=== PATIENT | male | born 1990 | race Caucasian/White ===

== ENCOUNTER 2021-02-06 15:14 | Outpatient (REF) | payer BC, SELFPAY ==
--- NOTE | ~2021-02-06 | US_ITS ---
EXAMINATION: ULTRASOUND EXTREMITY NONVASCULAR CLINICAL INFORMATION: Enlarging painful mass right supraclavicular area COMPARISON: None TECHNIQUE: Grayscale and color imaging of the right supraclavicular region using a linear transducer FINDINGS: There are multiple clustered enlarged right supraclavicular lymph nodes. The largest measures 3 x 5.7 x 2.3 cm in dimension. Some lymph nodes demonstrate abnormal architecture with loss of slitlike fatty hilum, and abnormal cortical thickening and abnormal cortical flow. Infectious, inflammatory and neoplastic processes should be considered. This would be amenable to ultrasound-guided biopsy if clinically indicated. US/US extremity nonvascular baez IMPRESSION: Multiple enlarged right supraclavicular lymph nodes, some with abnormal architecture and flow. Infectious, inflammatory and neoplastic processes should be considered. This would be amenable to ultrasound-guided biopsy if clinically indicated.
== END 2021-02-06 15:15 | disposition home or self-care (01) ==
LOC: HO.US 15:14
PROVIDERS: Visit Provider Emergency Medicine
DX: R22.2 Localized swelling, mass and lump, trunk (principal)
CPT/HCPCS: 76882

== ENCOUNTER 2021-02-12 08:39 | Outpatient (REF) | payer BC, SELFPAY ==
--- NOTE | ~2021-02-12 | US_ITS ---
PROCEDURE: ULTRASOUND-GUIDED CORE BIOPSY OF RIGHT SUPRACLAVICULAR LYMPH NODE CLINICAL INFORMATION: Right supraclavicular lymphadenopathy. COMPARISON: 02/06/2021 TECHNIQUE: Ultrasound-guided core biopsy right supraclavicular lymph node. FINDINGS: Informed consent was obtained from the patient prior to the procedure. During this process, the procedure and potential alternatives were explained, along with the intended outcome and benefits. The risks of the procedure, as well as the risk of not doing the procedure, were discussed. The patient was given the opportunity to ask questions regarding the procedure and appeared competent to make medical decisions. A signed consent form which documents this discussion was placed in the medical record. Using sterile technique and ultrasound guidance four 18-gauge core biopsies were obtained of an enlarged abnormal-appearing right supraclavicular lymph node. Two cores were sent for routine pathology with two other cores being sent for flow cytometry. Patient tolerated procedure without difficulty. US/US guide needle placement IMPRESSION: Successful ultrasound-guided core biopsy right supraclavicular lymphadenopathy.
--- NOTE | ~2021-02-12 | US_ITS ---
PROCEDURE: ULTRASOUND-GUIDED CORE BIOPSY OF RIGHT SUPRACLAVICULAR LYMPH NODE CLINICAL INFORMATION: Right supraclavicular lymphadenopathy. COMPARISON: 02/06/2021 TECHNIQUE: Ultrasound-guided core biopsy right supraclavicular lymph node. FINDINGS: Informed consent was obtained from the patient prior to the procedure. During this process, the procedure and potential alternatives were explained, along with the intended outcome and benefits. The risks of the procedure, as well as the risk of not doing the procedure, were discussed. The patient was given the opportunity to ask questions regarding the procedure and appeared competent to make medical decisions. A signed consent form which documents this discussion was placed in the medical record. Using sterile technique and ultrasound guidance four 18-gauge core biopsies were obtained of an enlarged abnormal-appearing right supraclavicular lymph node. Two cores were sent for routine pathology with two other cores being sent for flow cytometry. Patient tolerated procedure without difficulty. US/US biopsy lymph node IMPRESSION: Successful ultrasound-guided core biopsy right supraclavicular lymphadenopathy.
[2021-02-12] MEDS: Lidocaine HCl 1 % 20 ML VIAL 5 ML SUBCUT (11:14)
== END 2021-02-12 08:40 | disposition home or self-care (01) ==
LOC: HO.US 08:39
PROVIDERS: Radiology Diagnostic Radiology; Visit Provider Registered Nurse Community Health
DX: R22.2 Localized swelling, mass and lump, trunk (principal)
CPT/HCPCS: 36415; 38505; 76942; 88184; 88185; 88305

== ENCOUNTER → 2021-02-16 15:39 | Outpatient (BNV) | payer BC, OTHER, SELFPAY | PROVIDERS: Visit Provider Internal Medicine | DX: C81.90 Hodgkin lymphoma, unspecified, unspecified site (principal); R59.0 Localized enlarged lymph nodes | CPT/HCPCS: 99203; 99213; 99214 ==

== ENCOUNTER → 2021-02-18 14:18 | Outpatient (BNVA) | payer BC, SELFPAY | PROVIDERS: Visit Provider Surgery ==

== ENCOUNTER 2021-02-20 10:13 | Day surgery (SDC) | payer BC, SELFPAY ==
[2021-02-20] VITALS (8 sets, daily range): BP systolic 97–118; BP diastolic 62–76; PULSE 52–62; RESP 16–18; TEMP 36.6–36.7; O2SAT 97–99; BMI 30.2
[2021-02-20] MEDS: Lactated Ringers 1,000 ML 100 ML IVCONT (11:10)
--- NOTE | 2021-02-20 11:48 | HO.ANESPROP2 ---
[facility] Active Problems Active Problems: All Active Problems (Updated 02/17/21 @ 09:24 by Alexandria Wallis MD) Supraclavicular adenopathy (Acute) Past Medical History Medical History Hx of fracture of clavicle Family History Family History Father Heart disease HTN (hypertension) Paternal Aunt Heart disease HTN (hypertension) Maternal Grandfather Diabetes Paternal Uncle Diabetes Family/Other Asthma Family history of problems with anesthesia: No Surgical History Surgical History History of undescended testicle History of Problems with Anesthesia: No Social History Social History Household Members: Significant Other Alcohol intake: current Alcohol intake frequency: a few times a month Patient Tobacco Use Status: Current everyday Tobacco user Tobacco use type: Cigar Use of substances other than those prescribed or required for medical reasons: Yes Substance Use Type: Marijuana Are you DNR?: No Advance Directives: No Advance Directives Information Provided: Yes Meds Allergies Allergy/AdvReac Type Severity Reaction Status Date / Time No Known Allergies Allergy Verified 02/20/21 10:44 Active Medications: Current Medications Lactated Ringer's (Lr) 1,000 mls @ 100 mls/hr IVCONT .Q10H CAIRDAD Last Admin: 02/20/21 11:10 Dose: 100 mls/hr Documented by: Home Medications Medication Instructions Recorded Confirmed Last Taken Type No Known Home Meds 02/16/21 02/18/21 Unknown History Exam Exam Date and Time: February 20, 2021 1148 Height,Weight and Vital Signs: Height 5 ft 9 in Weight 92.986 kg Last Vital Signs Temp 98.0 F 02/20/21 10:56 Pulse 62 02/20/21 10:56 Resp 18 02/20/21 10:56 BP 97/62 02/20/21 10:56 Pulse Ox 97 02/20/21 10:56 Airway Mallampati Class: II TM Dist: >3cm Neck ROM: Full Heart: rrr Lungs: cta Assessment and Plan Assessment Anesthesia Assessment: Anesthesia Plan Discussed and Chart Reviewed Final Anesthetic Review Family History of Problems with Anesthesia: No History of Problems with Anesthesia: No NPO: Yes ASA Class: I Final Preanesthetic Review: No Changes in Pt Med Stat, Meds/Allgs Chart Reviewed and Consent Obtained/Reviewed Patient Risk: Intermediate Procedure Risk: Intermediate Anesthetic Plan Anesthetic Plan: GA Disposition: Standard PACU
--- NOTE | 2021-02-20 14:34 | P.OP_ITS ---
Operative Note Operative Note Date of Service: 02/20/21 Narrative: Preoperative diagnosis: Right supraclavicular lymphadenopathy Postoperative diagnosis: Same Procedure: Right supraclavicular lymph node excision Surgeon: Ever Maynard MD Director Of Strategic Partnerships: Ashely Hall PA-C Anesthesia: General LMA Indications for procedure: 30-year-old male patient presenting with and a large right supraclavicular lymph node confirmed on neck ultrasound, status post core biopsy with inconclusive results. Findings were suspicious for Hodgkin's disease. Patient presents now for a right supraclavicular lymph node excision. Operative findings: Large right supraclavicular lymph node measuring approximately 5 cm in length, 2 cm in width. Specimen: Right supraclavicular lymph node Estimated blood loss: 20 cc Complications: None Procedure details: Patient was brought to the OR placed in a supine position. After administering general anesthesia the patient's right neck was prepped with ChloraPrep and draped in a sterile fashion. A surgical time-out was called the consent confirmed. Patient received preoperative antibiotics and Venodyne boots were in place. Local anesthesia consisting of 0.5% Sensorcaine plain was infiltrated in a transverse fashion over the palpable lymph node. Incision was then made with scalpel carried out through subcutaneous tissue past status post muscle and up to the sternocleidomastoid muscle. The lateral edge of sternocleidomastoid mu scle was then incised and the supraclavicular space entered. A palpable node was identified. Using a combination of sharp and blunt dissection a large supraclavicular node was brought up through the incision. Hemostasis was assured using electrocautery and free ties of 4-0 silk ties. The specimen was removed and sent to pathology for further examination. Portion of the specimen was sent for flow cytometry. After assuring adequate hemostasis the wounds were irrigated with both saline solution and sterile water. Deep fascia was closed using interrupted 3-0 Polysorb sutures. Platysmas muscle and dermis were reapproximated using interrupted 3-0 Polysorb sutures. Skin was then closed using a running subcuticular 4-0 Polysorb suture. Steri-Strips 2 x 2 gauze and Tegaderm were then applied. The patient tolerated the procedure well. Sponge, instrument, and needle counts reported as correct. The patient was transferred to PACU in stable condition.
[2021-02-20] MEDS: oxyCODONE HCl Immed Release 5 MG TABLET PO (15:10)
== END 2021-02-20 16:10 | disposition home or self-care (01) ==
PROVIDERS: PCP Internal Medicine; Visit Provider Surgery
PROC: (CPT 38999; principal; 2021-02-20 12:50)
DX: R59.0 Localized enlarged lymph nodes (principal)
CPT/HCPCS: 38999; 36415; 88184; 88185; 88300; 88305; 88341; 88342; 88365; J0690; J1100; J1885; J2250; J2405; J3010

== ENCOUNTER 2021-03-10 06:30 | Outpatient (REF) | payer BC, MEDICAID, SELFPAY ==
--- NOTE | ~2021-03-10 | CT_ITS ---
EXAMINATION: CT CHEST, ABDOMEN AND PELVIS WITH IV CONTRAST CLINICAL INFORMATION: Staging COMPARISON: None TECHNIQUE: Axial images through the chest, abdomen and pelvis following oral and 100 mL Omnipaque 350 intravenous contrast. Sagittal and coronal reconstructions on the technologist's workstation were performed. This CT examination was performed using dose optimization techniques as appropriate, variously including the following: *Automated exposure control *Adjustment of mA and/or kV according to patient size (this includes techniques or standardized protocols for targeted exams where dose is matched to indication/reason for exam; i.e. extremities or head) *Use of iterative reconstruction technique DLP: 502+92 mGy-cm FINDINGS: Chest: The lungs are clear. There is extensive mediastinal lymphadenopathy. Largest lymph node measuring 1.6 cm in short axis anterior to the SVC (axial image 22 series 3), 1.8 cm in short axis in the AP window region (axial image 2225 series 3). No hilar adenopathy is seen. There is a small right anterior diaphragmatic or cardiophrenic angle lymph node measures 4 mm in short axis (axial image 48 series 3). The heart does not appear enlarged. There is no pericardial effusion. There is no pleural effusion or pleural thickening. There are small bilateral axillary lymph nodes. There are no enlarged axillary lymph nodes. There is a lipoma of the left lateral latissimus dorsi muscle. There are enlarged bilateral reticular lymph nodes, right greater than left. There are enlarged bilateral internal mammary lymph nodes, largest measuring 8 mm in short axis (axial image 22 series 3) on the right. Abdomen and Pelvis: The liver and gallbladder are unremarkable. Pancreas is unremarkable. Spleen is unremarkable. The adrenal glands and kidneys are unremarkable. Bladder is not optimally distended. The prostate gland does not appear enlarged. Small and large bowel is unremarkable. The stomach is unremarkable. No ascites or enlarged lymph nodes are seen. There are small left external iliac lymph nodes, largest measuring 6 mm in short axis. There is no ascites. No hernia is seen. Review at bone windows is unremarkable. CT/CT abdomen pelvis w con IMPRESSION: Chest: Enlarged mediastinal, internal mammary, and bilateral supraclavicular lymph nodes. Abdomen and Pelvis: Unremarkable exam.
--- NOTE | ~2021-03-10 | CT_ITS ---
EXAMINATION: CT SOFT TISSUE NECK WITH CONTRAST CLINICAL INFORMATION: Hodgkin's lymphoma staging. COMPARISON: None TECHNIQUE: Following the administration of 100 mL of Omnipaque 300 intravenous contrast, helical imaging was performed in the axial plane with generation of coronal and sagittal reformatted images. This CT examination was performed using dose optimization techniques as appropriate, variously including the following: *Automated exposure control *Adjustment of mA and/or kV according to patient size (this includes techniques or standardized protocols for targeted exams where dose is matched to indication/reason for exam; i.e. extremities or head) *Use of iterative reconstruction technique DLP: 1691 mGy-cm FINDINGS: Numerous enlarged conglomerate lymph nodes are seen within the lower cervical chains on the right more than left side at level 4 and 5B with confluent adenopathy present within the visualized mediastinum. No enlarged lymph nodes seen along the upper cervical chains. The pharyngeal and laryngeal contours are unremarkable. The bilateral parotid and submandibular glands appear normal. The thyroid gland appears normal. The imaged intracranial contents are unremarkable. There is paranasal sinus mucosal thickening. The mastoids are clear. The major neck vessels are patent. Please see concurrently performed chest CT for discussion of intrathoracic findings. Cervical spine is intact without destructive change or degeneration. CT/CT soft tissue neck w con IMPRESSION: Bulky conglomerate adenopathy seen within the right more than left lower cervical chains at level 4 and 5B as well as within the imaged mediastinum. No extranodal neck mass is seen.
[2021-03-10] MEDS: Barium Sulfate Oral (Berry) 450 ML ORAL.SUSP 900 ML PO (08:58)
[2021-03-10] MEDS: iohexoL 350 MG/ML 100 ML INFUS..BTL IV (08:59)
== END 2021-03-10 06:31 | disposition home or self-care (01) ==
LOC: HO.CT 06:30
PROVIDERS: Visit Provider Internal Medicine
DX: R59.1 Generalized enlarged lymph nodes (principal)
CPT/HCPCS: 70491; 71260; 74177; Q9967

== ENCOUNTER → 2021-03-11 09:38 | Outpatient (REF) | payer BC, SELFPAY ==
[2021-03-10 16:24] VITALS: BMI 30.5
--- NOTE | 2021-03-11 09:41 | CA_ITS ---
Transthoracic Echocardiogram Patient (Last, First, Middle): Ridge Villalobos, Gender: Male Date of : 1990 Age: 30 Procedure Date: 03/11/2021 Procedure Type: Transthoracic Echocardiogram Location: OP Height: 175.26 cm Weight: 95.26 kg BSA: 2.11 m2 Heart Rate: bpm BP: 124 / 68 mmHg Rfid Specialist: Referring MD: Alexandria Wallis MD Symptoms: C81.90 HODGKIN LYMPHOMA, pre chemo evaluation Study Quality: Good ECG Rhythm: Sinus Conclusions: - The left ventricular systolic function is normal. The visually estimated ejection fraction is between 55-60%. - There is mild tricuspid valve regurgitation. Findings Left Ventricle Normal left ventricular cavity size. There is normal left ventricular wall thickness. The left ventricular systolic function is normal. The visually estimated ejection fraction is between 55-60%. There is no evidence of regional wall motion abnormalities. Diastolic function is normal for age. LV peak GLS -19.4%. Right Ventricle Normal right ventricular cavity size and systolic function. Atria Both atria are normal in size. Aortic Valve There is a normal trileaflet aortic valve. There is no aortic valve stenosis. There is no aortic valve regurgitation. Mitral Valve The mitral valve appears normal. There is trace mitral valve regurgitation. There is no mitral valve stenosis. Pulmonic Valve The pulmonic valve was not well visualized. Tricuspid Valve Normal tricuspid valve structure. There is mild tricuspid valve regurgitation. The pulmonary artery systolic pressure is normal. Great Vessels The aortic annulus, sinuses of valsalva, asc aorta, and aortic arch are normal in size. Venous The inferior vena cava is normal in size and collapses greater than 50% with inspiration. Pericardium/Pleural There is no evidence of pericardial effusion. Prior Study Comparison No prior study available for comparison. Measurements 2D Linear Measurements IVSd: 1.00 0.6-0.9/0.6-1.0 cm LVIDd: 4.86 3.9-5.3/4.2-5.9 cm LVIDd Index: 2.30 2.4-3.2/2.2-3.1 cm/m2 LVIDs: 2.87 2.0-3.6 cm LVPWd: 0.95 0.7-1.1 cm Ao Root: 3.50 2.1-3.5 cm LA Diam: 3.70 2.7-3.8/3.0-4.0 cm LAIDs Index: 1.75 1.5-2.3 cm/m2 LV Mass: 208.64 67-162/88-224 g LV Mass Index: 98.88 43-95/49-115 g/m2 LVOT Diam: 2.50 3.0+(-)1.3 cm 2D Systolic Function EF 4C: 53.40 >55% EF 2C: 51.90 >55% EF BiP: 52.70 >55% Mitral Valve MV Pk E: 0.68 MV PK A: 0.49 MV Decel Time: 222.00 E/A: 1.40 E'Lateral: 17.40 E'Medial: 11.70 E/E' Med: 5.80 E/E' Lat: 3.90 PHT: 65.00 MVA PHT: 3.38 Decel [place]: 3.07 Aortic Valve AoV Pk Jorge: 1.38 AoV Mn Jorge: 0.94 AoV VTI: 0.31 AoV Pk Grad: 8.00 Aov Mn Grad: 4.00 ALEXANDER Cont.VTI: 3.36 LVOT LVOT Pk Jorge: 1.02 LVOT Mn Jorge: 0.64 LVOT VTI: 0.21 LVOT Pk Grad: 4.00 LVOT Mn Grad: 2.00 LVOT Diam: 2.50 LVOT Area: 4.91 Diastolic Function MV Pk E: 0.68 MV Pk A: 0.49 E/A: 1.40 E'Medial: 11.70 E/E' Med: 5.80 E' Laterial: 17.40 E/E' Lat: 3.90 Right Ventricle TAPSE (mm): 25.00 TVS' Jorge: 13.00 Great Vessels Aorta Ao Root-2D: 3.50 2.0-3.7 cm Ao Asc: 3.20 2.1-3.4 cm Pulmonary Valve PV Pk Jorge: 0.97 Peak PV Grad: 4.00 Updated in Other Vendor System with Status of Final Merrill Regalado MD electronically signed on 03/12/2021 10:49:40 AM with status of Final
== END ==
LOC: HO.CARD 09:38
PROVIDERS: Visit Provider Internal Medicine
DX: C81.90 Hodgkin lymphoma, unspecified, unspecified site (principal)
CPT/HCPCS: 93306; 93356

== ENCOUNTER 2021-03-12 15:27 | Outpatient (REF) | payer BC, SELFPAY ==
--- NOTE | 2021-03-12 | PFT_ITS ---
Forced vital capacity, FEV1, XDU47-57, and MVV are all normal. Post bronchodilator therapy, there is no change. Total lung capacity and residual volume normal. Diffusion capacity normal. CONCLUSION: Normal pulmonary function test. No evidence of obstructive or restrictive pulmonary disorder. MD KARLY Diamond/MODL / [id number]
== END 2021-03-12 15:28 | disposition home or self-care (01) ==
LOC: HO.RESP 15:27
PROVIDERS: Visit Provider Internal Medicine
DX: Z01.818 Encounter for other preprocedural examination (principal)
CPT/HCPCS: 94060; 94727; 94729

== ENCOUNTER 2021-03-17 08:25 | Outpatient (REF) | payer BC, SELFPAY ==
--- NOTE | ~2021-03-17 | PE_ITS ---
EXAMINATION: Fluorine-18 FDG PET/CT Scan CLINICAL INDICATION: Initial treatment management. Hodgkin's lymphoma, staging. PROCEDURE: 53 minutes following the intravenous administration of 13.8 mCi of fluorine 18 FDG, images from the base of the skull to the mid thighs were obtained using a combined PET/CT scanner with CT scan based attenuation correction. No oral contrast was administered. No intravenous contrast was administered. Transverse, coronal, sagittal, and volume reconstruction projections were obtained. The patient's blood glucose as determined by a finger stick, was 103 mg/dl immediately prior to injection. Total CT exam dose-length product 1114.93 mGy-cm * These CT images were obtained using dose optimization techniques as appropriate, variously including the following: Automated exposure control * Adjustment of mA and/or kV according to patient size (this includes techniques or standardized protocols for targeted exams where dose is matched to indication/reason for exam; i.e. extremities or head) * Use of iterative reconstruction technique COMPARISON: No previous PET/CT scan is available for comparison. CT scans of the chest, abdomen, pelvis and neck soft tissues dated 03/10/2021 are available for comparison. FINDINGS: (Slice numbers described in this report are numbered superiorly to inferiorly with slice #1 in the head) NECK AND VISUALIZED HEAD: Extensive confluent right-sided intensely FDG avid supraclavicular lymphadenopathy is present, and SUVmax 13.8, slice 61/311. Multiple smaller and less intensely FDG avid left supraclavicular lymph nodes are also present. There is mild diffusely increased FDG activity in the thyroid gland without a focal component. No additional abnormal FDG activity is present in the neck or visualized head. There is no additional more superior cervical lymphadenopathy. THORAX: Bulky intensely FDG avid mediastinal lymphadenopathy is present including bilateral prevascular, paratracheal, and AP window lymphadenopathy. The most intense mediastinal focus is a right prevascular focus showing S SUVmax 11.1, slice 92/311. There is also small right internal mammary FDG avid focus, slice 105/407. Small mildly FDG avid left axillary lymph node is visualized, slice 91/311. No right-sided axillary lymphadenopathy is present. Two 0.6 cm pulmonary nodules are visualized posteriorly at the left lung base, both slice 164/407 and unchanged from 03/10/[address] scan in both too small to be characterized on the FDG PET images. No other pulmonary nodules are visualized. There is no pleural or pericardial fluid or pneumothorax. ABDOMEN AND PELVIS: Several FDG avid left external iliac and left inguinal lymph nodes are present, the most prominent a distal left external iliac lymph node showing S SUVmax 11.7, slice 236/311 an measuring approximately 1.9 x 1.3 cm in largest transverse dimensions. There is mild FDG activity throughout the gastrointestinal tract without a suspicious focal component. There is diverticulosis without evidence of diverticulitis. The hollow viscera are otherwise unremarkable. Other than osseous lesion subsequently discussed, there are no additional foci of abnormal FDG activity in the abdomen or pelvis. The liver, spleen, gallbladder, kidneys, adrenal glands and pancreas appear unremarkable. MUSCULOSKELETAL: Multiple FDG avid osseous lesions are present. The most prominent of these include a focus in the left greater femoral trochanter showing S SUVmax 5.9, slice 254/311 and in the posterior right iliac bone showing S SUVmax 7.5, slice 208/311. Additional pelvic lesions are present in the posterior left iliac bone, midline upper sacrum, posterior column of the left acetabulum and mild bilateral inferior ischial lesions. In the spine there is an FDG avid focus in the inferior endplate of L2 an equivocal subtle lesion is probably also present in the T7 vertebral body. A small FDG avid lymph node is present posterior to the proximal shaft of the left femur, slice 271/311. VASCULAR: No significant abnormalities are present. PET/PET CT fusion skull to thigh IMPRESSION: 1. Extensive FDG avid lymphadenopathy is present involving the bilateral supraclavicular regions, mediastinum, left axilla, and left external iliac and inguinal regions. 2. Additional FDG avid osseous lesions are present in the left femur, pelvis and spine, as described above. Additional subtle pelvic and proximal right femoral lesions are also present. 3. All the above are consistent with malignant lymphadenopathy and osseous lesions from the patient's known Hodgkin's lymphoma.
== END 2021-03-17 08:26 | disposition home or self-care (01) ==
LOC: HO.PET 08:25
PROVIDERS: Visit Provider Internal Medicine
DX: Z13.89 Encounter for screening for other disorder (principal)

== ENCOUNTER → 2021-03-19 07:07 | Day surgery (SDC) | payer BC, SELFPAY ==
[2021-03-19 07:18] VITALS: BMI 31.0
[2021-03-19 07:30] LABS: Basophils Percent Auto 0.2 % (0-2); Eosinophils Absolute Auto 0.2 X10*3/uL (0.0-0.4); Hematocrit 38.2 % (42.0-52.0); Imm Gran Abs Auto 0.11 X10*3/uL (0.00-0.03); Imm Gran Pct Auto 0.6 % (0.0-0.4); Lymphocytes Absolute Auto 2.1 X10*3/uL (1.2-4.9); MANUAL DIFF FLAG NO; Mean Corpuscular Hemoglobin 29.6 pg (27.0-33.0); Mean Platelet Volume 10.8 fL (9.4-12.4); Monocytes Absolute Auto 1.4 X10*3/uL (0.1-1.2); Monocytes Percent Auto 7.6 % (2-11); Neutrophils Absolute Auto 13.9 x10*3/uL (2.0-8.3); Neutrophils Percent Auto 78.6 % (45-73); Platelet Count 285 X10*3/uL (160-400); Red Blood Count 4.39 X10*6/uL (4.60-5.80); Red Cell Distribution Width 11.6 % (11.0-16.0); White Blood Count 17.7 X10*3/uL (4.8-10.8)
[2021-03-19 07:38] LABS: INTERNATIONAL NORM RATIO 1.4 (0.9-1.1); Prothrombin Time 15.6 SEC (9.9-13.0)
[2021-03-19 07:41] LABS: Partial Thromboplastin Time 36.9 SEC (24.1-38.0)
--- NOTE | 2021-03-19 09:33 | PC.NURSE ---
the procedure was cancelled due to wbc too low. patient arrived here from IR got dressed and once ride here walked to main entrance.
== END ==
PROVIDERS: Radiology Diagnostic Radiology; Visit Provider Internal Medicine
DX: R59.0 Localized enlarged lymph nodes (principal); Z53.09 Procedure and treatment not carried out because of other contraindication; D72.829 Elevated white blood cell count, unspecified
CPT/HCPCS: 36415; 85025; 85610; 85730; J0690; J1642; J2250; J3010

== ENCOUNTER 2021-03-27 09:06 | Day surgery (SDC) | payer BC, MEDICAID, SELFPAY ==
--- NOTE | ~2021-03-27 | IR_ITS ---
PROCEDURE: IR INSERTION OF TUNNEL CATHETER CLINICAL INFORMATION: Hodgkin's lymphoma. Needs long-term IV chemotherapy. COMPARISON: None TECHNIQUE: Following explaining ultrasound fluoroscopy-guided placement of Port-A-Cath procedure, benefits and risks, a written consent was obtained. Patient was placed supine on fluoroscopy table and ultrasound imaging of the left and right neck was performed. Patient had a recent right neck biopsy scar and is painful. Hence the left neck was scanned, an optimal site was selected along the left neck and marked. Marked site was cleaned and draped in the usual sterile manner. 1% lidocaine was injected at puncture site. Under sterile ultrasound guidance a single wall needle was advanced and right jugular vein was punctured. After obtaining venous return, a thin guidewire was advanced through the needle and needle withdrawn. A 5-Chilean dilator sheath was advanced over the guidewire. The guidewire and the sheath were anchored to the drape with hemostats. Approximately 1 gauze length away from the left neck puncture along the left anterior chest wall, 1% lidocaine was injected. A small skin incision was performed approximately 4 cm long and blunt dissection was performed subcutaneously. A pocket was created. 1% lidocaine was injected from the anterior chest wall incision subcutaneously through the left neck incision area. A blunt tunneler attached to the Port-A-Cath and the port chamber was inserted through the left anterior chest wall incision and advanced subcutaneously and extracted through the left neck incision. The port was then anchored to the skin with two 3-0 nonabsorbable sutures. The port catheter was then sized 32 cm long. The guidewire and the dilator through the left neck incision removed and a 0.035 J-wire was advanced under fluoroscopy into the IVC and the 5-Chilean sheath was removed. 7-Chilean sheath with a 6.6-Chilean dilator were inserted over the wire. The dilator and the guidewire were removed and the sized portacatheter tip was inserted through the sheath into the SVC. The peel-away sheath was removed as the catheter was held in position. The portacatheter was flushed with heparinized saline. Absorbable 3-0 sutures were placed subcutaneously followed by a second set of sutures along the skin and the skin incision was closed. Similarly, the left neck incision was closed with 3-0 absorbable sutures. A Ryan needle was advanced into the port and standard heparin was installed. Subsequently, Steri-Strips were applied at the neck incision and the anterior chest wall incision followed by simple dressing. Patient tolerated procedure extremely well. All elements of maximal sterile barrier technique followed including use of cap, mask, sterile gown, sterile gloves, a sterile full body drape and hand hygiene. Also followed skin preparation with 2% chlorhexidine for cutaneous antisepsis, and sterile ultrasound preparation with sterile gel and probe cover when applicable. Conscious sedation was utilized during the exam and patient monitored. FINDINGS: On preliminary ultrasound imaging the left jugular vein is widely patent. There are numerous iltzlyvw-eb-[id number] lymph nodes in the left supraclavicular neck. Under ultrasound and fluoroscopy guidance, a 6.6-Chilean 32 cm long tunneled portacatheter was inserted from a left jugular venous approach. A single image obtained through the left anterior chest reveals catheter tip in the distal SVC. IR/IR cvc insert tunnel w prt/event crew technician IMPRESSION: Successful placement of a tunneled catheter through the left jugular vein with the tip of the catheter in distal SVC. A single image was obtained for documentation. Fluoroscopy time 0.7 minutes. Dose area product: 216 cGy-cm2
[2021-03-27 09:24] VITALS: BMI 30.1
[2021-03-27 09:25] VITALS: BP 109/78; PULSE 67; RESP 18; TEMP 36.1; O2SAT 99
[2021-03-27] MEDS: Lidocaine HCl 1 % MPF 5 ML VIAL SUBCUT (13:20)
[2021-03-27 13:39] VITALS: BP 116/71; PULSE 93; RESP 16; TEMP 36.9; O2SAT 97
[2021-03-27 14:15] VITALS: BP 111/75; PULSE 73; RESP 16; O2SAT 97
[2021-03-27 14:45] VITALS: BP 105/72; PULSE 78; RESP 16; O2SAT 97
[2021-03-27 15:17] VITALS: BP 123/66; PULSE 77; RESP 16; O2SAT 99
== END 2021-03-27 15:19 | disposition home or self-care (01) ==
LOC: HO.SSS 09:06
PROVIDERS: Visit Provider Radiology Diagnostic Radiology
DX: Z45.2 Encounter for adjustment and management of vascular access device (principal); C81.90 Hodgkin lymphoma, unspecified, unspecified site; F17.200 Nicotine dependence, unspecified, uncomplicated
CPT/HCPCS: 36561; 99152; 99153; C1769; C1788; J0690; J1642; J2250; J3010

== ENCOUNTER 2021-06-16 10:38 | Outpatient (REF) | payer BC, MEDICAID, SELFPAY ==
--- NOTE | ~2021-06-16 | PE_ITS ---
EXAMINATION: Fluorine-18 FDG PET/CT Scan CLINICAL INDICATION: Subsequent treatment management. Hodgkin's lymphoma, restaging. PROCEDURE: 57 minutes following the intravenous administration of 13.8 mCi of fluorine 18 FDG, images from the base of the skull to the mid thighs were obtained using a combined PET/CT scanner with CT scan based attenuation correction. No oral contrast was administered. No intravenous contrast was administered. Transverse, coronal, sagittal, and volume reconstruction projections were obtained. The patient's blood glucose as determined by a finger stick, was 95 mg/dl immediately prior to injection. Total CT exam dose-length product 719.78 mGy-cm * These CT images were obtained using dose optimization techniques as appropriate, variously including the following: Automated exposure control * Adjustment of mA and/or kV according to patient size (this includes techniques or standardized protocols for targeted exams where dose is matched to indication/reason for exam; i.e. extremities or head) * Use of iterative reconstruction technique COMPARISON: The previous PET CT scan dated 03/17/2021 is available for comparison. FINDINGS: (Slice numbers described in this report are numbered superiorly to inferiorly with slice #1 in the head) NECK AND VISUALIZED HEAD: Intensely FDG avid right greater than left supraclavicular lymphadenopathy present on the prior 03/17/2021 CT scan has completely resolved. Minimal soft tissue densities in this region are present, and all now appear subcentimeter in size. None of these show abnormal FDG activity. There is now no cervical lymphadenopathy or foci of abnormal FDG activity in the neck or visualized head. THORAX: Extensive FDG avid mediastinal lymphadenopathy has completely resolved since the prior 03/17/2021 study. Multiple subcentimeter mediastinal lymph nodes are now present at the site of previously enlarged intensely FDG avid lymphadenopathy present on 03/17/2021. There is no axillary lymphadenopathy. There are now no abnormal foci of FDG activity in the chest. No pulmonary nodules are visualized. There is no pleural or pericardial fluid, or pneumothorax. A left-sided chest port with internal jugular catheter terminating in the right atrium is noted and this is new since 03/17/2021. ABDOMEN AND PELVIS: No foci of abnormal FDG activity are present in the abdomen or pelvis. Intensely FDG avid pelvic and inguinal lymphadenopathy present on 03/17/2021 has resolved. There is now no retroperitoneal, mesenteric, pelvic or inguinal lymphadenopathy. The liver, spleen, gallbladder, kidneys, adrenal glands, and pancreas are unremarkable. MUSCULOSKELETAL: No foci of abnormal FDG activity are now present in the osseous structures. Previously present pelvic, spinal, and prominent proximal left femoral lesions on the 03/17/2021 study are no longer present. There is subtle sclerosis on the CT images at some of these sites, such as the proximal left femur, slice 243/267, the posterior right iliac bone, slice 199/267, in the posterior aspect of L2, best visualized on the sagittal reconstructions. None of these now show abnormal FDG activity. No suspicious lytic lesions are present. VASCULAR: No significant abnormalities are present. PET/PET CT fusion skull to thigh IMPRESSION: Complete resolution of extensive FDG avid lymphadenopathy and multiple FDG avid osseous lesions present on the prior 03/17/[address] scan. Using the 5 point Deauville scale, this patient would be classified as a Deauville score of 1.
== END 2021-06-16 10:39 | disposition home or self-care (01) ==
LOC: HO.PET 10:38
PROVIDERS: Visit Provider Internal Medicine
DX: Z13.89 Encounter for screening for other disorder (principal)

== ENCOUNTER 2021-09-29 12:16 | Outpatient (REF) | payer BC, MEDICAID, SELFPAY ==
--- NOTE | ~2021-09-29 | PE_ITS ---
EXAMINATION: PET/CT WHOLE BODY INDICATION: Posttreatment PET. COMPARISON: Previous PET scans dated 06/16/2021, 03/17/2021. TECHNIQUE: Dedicated coincidence imaging from the base of the skull to the thighs. 15.4 mCi F-18 deoxyglucose. FINDINGS: The base of the skull is felt to be within normal limits. The neck exam is limited due to misregistration. No suggestion of bulky adenopathy. In the thoracic inlet, uptake adjacent to the inferior pole of the thyroid gland and as we course lower into the mediastinum, increasing bulky adenopathy with increased uptake consistent with recurrent tumor. Uptake 10 SUVmax. Uptake crosses the midline into the left-side of the mediastinum and uptake is felt to extend down into the subcarinal region. Again there is associated increased soft tissue and tumor is suspected. The hilar regions are felt to be unremarkable. In the lungs, there is no suspicious uptake. In the upper abdomen, the liver uptake is within normal limits. The splenic uptake is within normal limits. There is normal low-level bowel activity. Normal renal and bladder activity. Review of the bones demonstrates diffuse uptake. This may be related to treatment. Importantly, there is no excess uptake in the region of previously documented bone lesions. PET/PET CT fusion skull to thigh IMPRESSION: I believe this exam shows recurrent disease. As described, there is uptake and increasing adenopathy in the right mediastinum which does cross the midline at the level the bernardo and also extends to the right subcarinal region. There is also a discrete focus in the upper right mediastinum just below the level of the thyroid gland. Diffuse bony uptake may be related to therapy. There is no evidence of excess uptake in the area of previously documented bone lesions. Attention to follow-up. Uptake is otherwise within normal limits.
== END 2021-09-29 12:17 | disposition home or self-care (01) ==
LOC: HO.PET 12:16
PROVIDERS: Visit Provider Internal Medicine
DX: Z13.89 Encounter for screening for other disorder (principal)

== ENCOUNTER 2021-10-07 11:47 | Day surgery (SDC) | payer BC, MEDICAID, SELFPAY ==
--- NOTE | 2021-10-06 09:00 | HO.ANESPROP2 ---
Documented by User: Vicky Jacob NP 10/06/21 09:04 HPI - Anesthesia Eval Consult details Narrative: 31yo M for Colonoscopy s/p chemo for hodgkins lymphoma s/p lymph node dissect 02/2021 with GA-LMA 4 PMFSH Active Problems Active Problems: All Active Problems (Updated 10/05/21 @ 13:04 by Jose Sanderson MD) Mediastinal lymphadenopathy (Acute) Hodgkin lymphoma (Acute) Supraclavicular adenopathy (Chronic) Past Medical History Medical History Hodgkin lymphoma Hx of fracture of clavicle Family History Family History Father Heart disease HTN (hypertension) Paternal Aunt Heart disease HTN (hypertension) Maternal Grandfather Diabetes Pancreatic cancer Paternal Uncle Diabetes Family/Other Asthma Family history of problems with anesthesia: No Surgical History Surgical History History of undescended testicle S/P lymph node biopsy History of Problems with Anesthesia: No Social History Social History Household Members: Significant Other Alcohol intake: current Alcohol intake frequency: a few times a month Patient Tobacco Use Status: Never used Tobacco Tobacco use type: Cigar Use of substances other than those prescribed or required for medical reasons: Yes Substance Use Type: Marijuana Are you DNR?: No Advance Directives: No Advance Directives Information Provided: Yes Recently lost weight without trying: No How much weight loss: 2-13 pounds Meds Allergies Allergy/AdvReac Type Severity Reaction Status Date / Time No Known Allergies Allergy Verified 10/05/21 11:45 Exam Exam Date and Time: October 06, 2021 0900 Pertinent Lab Results Pertinent Lab Results: Laboratory Tests 08/28/21 08/28/21 09:18 09:18 WBC 6.4 Hgb 12.6 L Hct 37.7 L Plt Count 400 D Sodium 138 Potassium 4.4 Chloride 104 Carbon Dioxide 28 BUN 9 Creatinine 0.82 Narrative Narrative: ECHO 03/2021 Conclusions: - The left ventricular systolic function is normal.? The visually estimated ejection fraction is between 55-60%. ? - There is mild tricuspid valve regurgitation. ? Assessment and Plan Assessment Anesthesia Assessment: Chart Reviewed Final Anesthetic Review Family History of Problems with Anesthesia: No History of Problems with Anesthesia: No Documented by User: Erinn Marcial MD 10/07/21 13:30 [facility] Active Problems Active Problems: All Active Problems (Updated 10/05/21 @ 13:04 by Jose Sanderson MD) Mediastinal lymphadenopathy (Acute). For EBUS Hodgkin lymphoma (Acute) s/p 6 cycles of chemotherapy. Finished August 2021 Supraclavicular adenopathy (Chronic) Past Medical History Medical History Hodgkin lymphoma Hx of fracture of clavicle Family History Family History Father Heart disease HTN (hypertension) Paternal Aunt Heart disease HTN (hypertension) Maternal Grandfather Diabetes Pancreatic cancer Paternal Uncle Diabetes Family/Other Asthma Surgical History Surgical History History of undescended testicle S/P lymph node biopsy Social History Social History Household Members: Significant Other Alcohol intake: current Alcohol intake frequency: a few times a month Patient Tobacco Use Status: Never used Tobacco Tobacco use type: Cigar Use of substances other than those prescribed or required for medical reasons: Yes Substance Use Type: Marijuana Are you DNR?: No Advance Directives: No Advance Directives Information Provided: Yes Recently lost weight without trying: No How much weight loss: 2-13 pounds Meds Allergies Allergy/AdvReac Type Severity Reaction Status Date / Time No Known Allergies Allergy Verified 10/05/21 11:45 Exam Height,Weight and Vital Signs: Height 5 ft 9 in Weight 94.801 kg Vital Signs Temp Pulse Resp BP Pulse Ox O2 Del Method 10/07/21 12:11 97.9 F 83 16 114/77 95 Room Air Airway Mallampati Class: II TM Dist: >3cm Neck ROM: Full Loose/Missing/Broken Teeth: No (Per patient) Heart: RRR Lungs: CTAB Assessment and Plan Assessment Anesthesia Assessment: Anesthesia Plan Discussed Final Anesthetic Review NPO: Yes ASA Class: II Final Preanesthetic Review: No Changes in Pt Med Stat, Meds/Allgs Chart Reviewed, Consent Obtained/Reviewed and Anes Risks/Benef Reviewed Patient Risk: Low Procedure Risk: Low Anesthetic Plan Anesthetic Plan: GA Disposition: Standard PACU
[2021-10-07] VITALS (7 sets, daily range): BP systolic 114–127; BP diastolic 71–82; PULSE 83–99; RESP 16–18; TEMP 36.5–36.6; O2SAT 95–99; BMI 30.8
[2021-10-07] MEDS: Lactated Ringers 1,000 ML 100 ML IVCONT (12:29)
--- NOTE | 2021-10-07 12:31 | MHC.SHP ---
Pre-Procedural Eval Section A Date of Service: 10/07/21 The patient is an INPATIENT: No Changes since office visit: Yes Patient answered all questions; No Cold of Flu in the past 2 weeks, No New Medical Problems and No Changes in Medication The History & Physical has been completed within 30 days and I have reviewed it.: Yes Section B Chief Complaint: large b cells Allergies: Allergies Allergy/AdvReac Type Severity Reaction Status Date / Time No Known Allergies Allergy Verified 10/05/21 11:45 Review of Systems Sugical H&P ROS: Negative: Constitution, Cardiovascular, Respiratory, Neurological, Psychiatric, Hem-Onc, Allergic/Immunologic, Gastrointestinal, Genitourinary, Musculoskeletal, Integumentary, Endocrine and Eyes/Ears/Nose/Throat Exam Surgical H&P Exam: Normal: HEENT, Normal: Heart, Normal: Lungs, Normal: Extremities, Normal: Abdomen, Normal: Skin and Normal: Neurological Plan Diagnosis/Plan: Unchanged I have reviewed the history and physical and performed a pertinent physical examination on my patient. No changes have occurred unless specified.
--- NOTE | 2021-10-07 15:53 | PM.OP ---
Brief Operative Note Date of Service: 10/07/21 Pre-op diagnosis: Lymphoma Post-op diagnosis: same Procedure: Endobronchial ultrasound guided biopsy of mediastinal nodes performed with bronchoscope advanced through the ET tube (patient intubated for the procedure) through the tracheobronchial tree with visualized normal bronchial mucosa. Lymph nodes at station 4R and station 7 were biopsied under endobronchial ultrasound guidance with aspirate from both stations demonstrating lymphoid tissue on bedside microscopy. Samples sent for further testing. Patient tolerated the procedure well and was returned to PACU in stable condition. Surgeon: Jose Sanderson MD Anesthesia: GETA Was an Structural Design Engineer used for this Procedure?: No Estimated blood loss (mL): 0 Pathology: other (Sent) Condition: stable Disposition: PACU
== END 2021-10-07 16:10 | disposition home or self-care (01) ==
PROVIDERS: Visit Provider Internal Medicine Pulmonary Disease
PROC: (CPT 31652; principal; 2021-10-07 13:30)
DX: C85.28 Mediastinal (thymic) large B-cell lymphoma, lymph nodes of multiple sites (principal); R59.0 Localized enlarged lymph nodes; Z87.891 Personal history of nicotine dependence
CPT/HCPCS: 31652; 36415; 88172; 88173; 88177; 88184; 88185; 88305; J0171; J1100; J2250; J2405; J3010

== ENCOUNTER → 2021-10-23 10:01 | Outpatient (BNVA) | payer OTHER, MEDICAID, SELFPAY | PROVIDERS: Visit Provider Surgery | DX: C81.90 Hodgkin lymphoma, unspecified, unspecified site (principal); R59.0 Localized enlarged lymph nodes | CPT/HCPCS: 99202 ==

== ENCOUNTER 2021-10-28 05:56 | Day surgery (SDC) | payer OTHER, MEDICAID, SELFPAY ==
--- NOTE | 2021-10-27 09:56 | P.CONAN_ITS ---
Documented by User: Vicky Jacob NP 10/27/21 09:57 HPI - Anesthesia Eval Consult details Narrative: 31yo M for Bronchoscopy Mediastinoscopy s/p EBUS 10/08/21 with GA-ETT 8 PMFSH Active Problems Active Problems: All Active Problems (Updated 10/23/21 @ 11:42 by Ramón Noble MD) Hodgkin lymphoma (Acute) Mediastinal lymphadenopathy (Acute) Supraclavicular adenopathy (Chronic) Past Medical History Medical History Hodgkin lymphoma Hx of fracture of clavicle Family History Family History Father Heart disease HTN (hypertension) Paternal Aunt Heart disease HTN (hypertension) Maternal Grandfather Diabetes Pancreatic cancer Paternal Uncle Diabetes Family/Other Asthma Family history of problems with anesthesia: No Surgical History Surgical History History of bronchoscopy History of undescended testicle S/P lymph node biopsy History of Problems with Anesthesia: No Social History Social History Household Members: Significant Other Alcohol intake: current Alcohol intake frequency: a few times a month Patient Tobacco Use Status: Never used Tobacco Tobacco use type: Smokeless Tobacco Use of substances other than those prescribed or required for medical reasons: Yes Substance Use Type: Marijuana Substance Use Frequency: Weekly Are you DNR?: No Advance Directives: No Advance Directives Information Provided: Yes Meds Allergies Allergy/AdvReac Type Severity Reaction Status Date / Time No Known Allergies Allergy Verified 10/23/21 10:16 Exam Exam Date and Time: October 27, 2021 0956 Height,Weight and Vital Signs: Height 5 ft 9 in Weight 94.801 kg Vital Signs Temp Pulse Resp BP Pulse Ox O2 Del Method 10/07/21 12:11 97.9 F 83 16 114/77 95 Room Air Pertinent Lab Results Pertinent Lab Results: Laboratory Tests 08/28/21 08/28/21 09:18 09:18 WBC 6.4 Hgb 12.6 L Hct 37.7 L Plt Count 400 D Sodium 138 Potassium 4.4 Chloride 104 Carbon Dioxide 28 BUN 9 Creatinine 0.82 Narrative Narrative: ECHO 03/2021 Conclusions: - The left ventricular systolic function is normal.? The visually estimated ejection fraction is between 55-60%. ? - There is mild tricuspid valve regurgitation. ? Assessment and Plan Assessment Anesthesia Assessment: Chart Reviewed Final Anesthetic Review Family History of Problems with Anesthesia: No History of Problems with Anesthesia: No Documented by User: Blair Rob MD 10/28/21 07:30 [facility] Past Medical History Medical History Hodgkin lymphoma Hx of fracture of clavicle Family History Family History Father Heart disease HTN (hypertension) Paternal Aunt Heart disease HTN (hypertension) Maternal Grandfather Diabetes Pancreatic cancer Paternal Uncle Diabetes Family/Other Asthma Surgical History Surgical History History of bronchoscopy History of undescended testicle S/P lymph node biopsy Social History Social History Household Members: Significant Other Alcohol intake: current Alcohol intake frequency: a few times a month Patient Tobacco Use Status: Never used Tobacco Tobacco use type: Smokeless Tobacco Use of substances other than those prescribed or required for medical reasons: Yes Substance Use Type: Marijuana Substance Use Frequency: Weekly Are you DNR?: No Advance Directives: No Advance Directives Information Provided: Yes Meds Allergies Allergy/AdvReac Type Severity Reaction Status Date / Time No Known Allergies Allergy Verified 10/23/21 10:16 Exam Airway Mallampati Class: II TM Dist: >3cm Neck ROM: Full Loose/Missing/Broken Teeth: No Heart: rrr Lungs: clear Assessment and Plan Final Anesthetic Review NPO: Yes ASA Class: III Patient Risk: Intermediate Procedure Risk: Intermediate Anesthetic Plan Anesthetic Plan: GA Disposition: Standard PACU
[2021-10-28] VITALS (16 sets, daily range): BP systolic 104–132; BP diastolic 69–87; PULSE 86–98; RESP 16; TEMP 36.2–36.6; O2SAT 94–99; BMI 30.2
[2021-10-28] MEDS: Lactated Ringers 1,000 ML 100 ML IVCONT (06:42)
--- NOTE | 2021-10-28 07:24 | MHC.SHP ---
Pre-Procedural Eval Section A Date of Service: 10/28/21 The patient is an INPATIENT: No The History & Physical has been completed within 30 days and I have reviewed it.: Yes Section B Chief Complaint: hodgkin lymphoma Allergies: Allergies Allergy/AdvReac Type Severity Reaction Status Date / Time No Known Allergies Allergy Verified 10/23/21 10:16 Plan I have reviewed the history and physical and performed a pertinent physical examination on my patient. No changes have occurred unless specified.
--- NOTE | 2021-10-28 09:42 | P.OP_ITS ---
Operative Note Operative Note Date of Service: 10/28/21 Narrative: Preoperative diagnosis:Hodgkin's lymphoma and mediastinal lymphadenopathy Postoperative diagnosis: same Operation: Bronchoscopy and mediastinoscopy with mediastinal lymph node biopsies Surgeon:Ramón Noble MD Director Global Market Research: none Anesthesia: General Specimens: right paratracheal Mediastinal/hilar lymph nodes and right bronchial washings EBL: Minimal Operation in detail: The patient was brought to the operating room, placed supine on the operative table, anesthesia monitoring devices were placed, and the patient was intubated without difficulty. A time-out was performed confirming the correct patient, site, and procedure. The bronchoscope was then inserted through the endotracheal tube and airways were visualized down to the subsegmental level with findings no endobronchial lesions and no secretions. The scope was then positioned in the right mainstem bronchus and right upper lobe bronchus and 120 cc of saline washings were taken and collected in a Lukens trap. The patient's head and neck with an extended any neck and chest were widely prepped and draped in a standard sterile fashion. After injection of local anesthetic, a 2 cm incision was made above the sternal notch and carried down w ith electrocautery in between the strap muscles directly onto the trachea. The pretracheal fascia was then incised with the Metzenbaum scissors. This pretracheal space was then developed bluntly with my finger. The video mediastinal scope was then inserted along the trachea and down to the bernardo. there was a dense fibrotic reaction or fibrotic tissue once we passed the innominate artery. I was able to visualize the right paratracheal lymphadenopathy noted on the PET scan but there was a very thick capsule and it took an hour longer than it normally would take to hopefully get adequate s ampling. I do believe that the 1st set of samples that I did her probably only likely fibrotic capsule but the samples towards the end did seemed to have more lymphatic tissue as I got deeper into it.We 1st visualized right paratracheal lymph nodes and multiple grasper biopsies were taken and sent to pathology. Surgicel was used at each site and an opened up sponge was then placed into the pretracheal space and left to sit for 5 minutes by the clock. The sponge was removed and the scope was reinserted and hemostasis was achieved. The strap muscles were closed with a running 3-0 Vicryl suture. The platysma was closed with running 3-0 Vicryl suture. The skin was closed with running 3-0 Vicryl suture and Dermabond glue. The patient tolerated the procedure well, was extubated at the conclusion the operation, and brought to recovery room in stable condition.
[2021-10-28] MEDS: ondansetron HCL 4 MG/2 ML VIAL IVPUSH (10:21)
[2021-10-28] MEDS: fentaNYL citrate/PF 100 MCG/2 ML VIAL 25 MCG IVPUSH (10:22)
== END 2021-10-28 12:45 | disposition home or self-care (01) ==
PROVIDERS: Visit Provider Surgery
PROC: (CPT 39402; principal; 2021-10-28 07:30)
DX: C81.90 Hodgkin lymphoma, unspecified, unspecified site (principal); R59.0 Localized enlarged lymph nodes; M54.9 Dorsalgia, unspecified; M25.519 Pain in unspecified shoulder; R61 Generalized hyperhidrosis; Z79.899 Other long term (current) drug therapy; F12.90 Cannabis use, unspecified, uncomplicated
CPT/HCPCS: 39402; 87071; 87102; 87116; 87205; 88112; 88161; 88305; 88331; J0131; J0690; J1100; J2250; J2405; J3010

== ENCOUNTER → 2021-11-06 09:09 | Outpatient (BNVA) | payer OTHER, MEDICAID, SELFPAY | PROVIDERS: Visit Provider Surgery | DX: C81.90 Hodgkin lymphoma, unspecified, unspecified site (principal); R59.0 Localized enlarged lymph nodes | CPT/HCPCS: 99212 ==

== ENCOUNTER 2021-11-09 16:39 | Outpatient (REF) | payer OTHER, MEDICAID, SELFPAY ==
--- NOTE | ~2021-11-09 | XR_ITS ---
EXAMINATION: XR CHEST CLINICAL INFORMATION: Fever, chills post mediastinal skull base. COMPARISON: None. TECHNIQUE: 2 views of the chest were obtained. FINDINGS: The lungs are well expanded and clear of acute pneumonic process. Increase bilateral parahilar markings. The heart size and pulmonary vascularity is normal. There is a left central venous port with its tip in distal SVC. No gross bony abnormality seen. XR/XR chest 2V IMPRESSION: No acute cardiopulmonary process seen.
== END 2021-11-09 16:40 | disposition home or self-care (01) ==
LOC: HO.XRAY 16:39
PROVIDERS: Visit Provider Internal Medicine
DX: C81.90 Hodgkin lymphoma, unspecified, unspecified site (principal); R50.9 Fever, unspecified
CPT/HCPCS: 71046

== ENCOUNTER → 2021-11-12 07:10 | Outpatient (REF) | payer OTHER, MEDICAID, SELFPAY ==
--- NOTE | 2021-11-12 07:13 | CA_ITS ---
Transthoracic Echocardiogram Patient (Last, First, Middle): Ridge Villalobos, Gender: Male Date of : 1990 Age: 31 Procedure Date: 11/12/2021 Procedure Type: Transthoracic Echocardiogram Location: OP Height: 175.26 cm Weight: 90.72 kg BSA: 2.07 m2 Heart Rate: 98 bpm BP: 113 / 70 mmHg Head Of Training And Development: ZEESHAN Referring MD: Alexandria Wallis MD Clinical Research Nurse Coordinator: Ignacio Montana MD Symptoms: s/p adriamycin. prechemo eval Study Quality: Adequate ECG Rhythm: Sinus Conclusions: - 1. Normal LV systolic and diastolic function but reduced peak global longitudinal strain compared to prior study 2. Normal cardiac valvular Dopplers 3. Normal RV systolic pressure 4. No pericardial effusion Findings Peak GLS is Left Ventricle Normal left ventricular size, thickness, and systolic function. The visually estimated ejection fraction is between 60-65%. Spectral Doppler is indicative of a normal filling pattern.Peak GLS is -16.4%, which is marginally reduced. Right Ventricle Normal right ventricular cavity size and systolic function. Atria Both atria are normal in size. There is no evidence of interatrial shunt. Aortic Valve Normal aortic valve structure and function. There is no aortic valve stenosis. There is no aortic valve regurgitation. Mitral Valve Normal mitral valve structure and function. There is trace mitral valve regurgitation. There is no mitral valve stenosis. Pulmonic Valve The pulmonic valve is likely normal. There is trace pulmonic valve regurgitation. Tricuspid Valve Normal tricuspid valve structure. Tricuspid regurgitation envelope is inadequate for calculation of right ventricular systolic pressure. Normal right atrial pressure. Great Vessels All visible segments of the aorta are normal in size. The visualized portions of the pulmonary artery and branches are normal. Venous The inferior vena cava is normal in size and collapses greater than 50% with inspiration. Pericardium/Pleural There is no evidence of pericardial effusion. Prior Study Comparison Changes noted compared to prior study dated: 03/11/2021. Peak GLS is reduced Measurements 2D Linear Measurements IVSd: 1.05 0.6-0.9/0.6-1.0 cm LVIDd: 4.64 3.9-5.3/4.2-5.9 cm LVIDd Index: 2.24 2.4-3.2/2.2-3.1 cm/m2 LVIDs: 2.97 2.0-3.6 cm LVPWd: 0.77 0.7-1.1 cm LA Diam: 3.50 2.7-3.8/3.0-4.0 cm LAIDs Index: 1.69 1.5-2.3 cm/m2 LV Mass: 201.67 67-162/88-224 g LV Mass Index: 97.43 43-95/49-115 g/m2 LVOT Diam: 2.20 3.0+(-)1.3 cm 2D Systolic Function EF 4C: 71.20 >55% EF 2C: 56.70 >55% EF BiP: 63.70 >55% Mitral Valve MV Pk E: 0.82 MV PK A: 0.62 MV Decel Time: 173.00 E/A: 1.30 E'Lateral: 14.80 E'Medial: 8.15 E/E' Med: 10.10 E/E' Lat: 5.50 PHT: 51.00 MVA PHT: 4.31 Decel [place]: 4.74 Aortic Valve AoV Pk Jorge: 1.25 AoV Mn Jorge: 0.91 AoV VTI: 0.21 AoV Pk Grad: 6.00 Aov Mn Grad: 4.00 ALEXANDER Cont.VTI: 3.60 LVOT LVOT Pk Jorge: 1.33 LVOT Mn Jorge: 0.85 LVOT VTI: 0.20 LVOT Pk Grad: 7.00 LVOT Mn Grad: 3.00 LVOT Diam: 2.20 LVOT Area: 3.80 Diastolic Function MV Pk E: 0.82 MV Pk A: 0.62 E/A: 1.30 E'Medial: 8.15 E/E' Med: 10.10 E' Laterial: 14.80 E/E' Lat: 5.50 Right Ventricle TAPSE (mm): 18.00 TVS' Jorge: 14.30 Tricuspid Valve RA Press: 3.00 Great Vessels Aorta Sinus of Valsalva: 3.60 2.0-3.5 cm Ao Asc: 3.00 2.1-3.4 cm Ao Arch: 2.70 Ao Desc: 2.10 Pulmonary Valve PV Pk Jorge: 1.01 Peak PV Grad: 4.00 Updated in Other Vendor System with Status of Final Ignacio Montana MD electronically signed on 11/13/2021 4:41:50 PM with status of Final
== END ==
LOC: HO.CARD 07:10
PROVIDERS: Visit Provider Internal Medicine Medical Oncology
DX: C81.90 Hodgkin lymphoma, unspecified, unspecified site (principal)
CPT/HCPCS: 93306; 93356

== ENCOUNTER 2021-12-03 13:58 | Emergency (ER) | payer OTHER, MEDICAID, SELFPAY ==
--- NOTE | 2021-12-03 14:25 | ECG_ITS ---
Test Reason : syncope Blood Pressure : / mmHG Vent. Rate : 082 BPM Atrial Rate : 082 BPM P-R Int : 166 ms QRS Dur : 082 ms QT Int : 376 ms P-R-T Axes : 037 038 057 degrees QTc Int : 439 ms Normal sinus rhythm Normal ECG No previous ECGs available Referred By: Julia Shields Electronically Signed By:ADDISON VINCENT
--- NOTE | 2021-12-03 14:26 | ED.ALLEREA ---
HPI - Allergic Reaction General Chief complaint: Allergic Reaction Stated complaint: Not feeling good Time Seen by Provider: 12/03/21 14:24 History of Present Illness HPI narrative: Patient is a 31-year-old male presented today with having lightheadedness dizziness while getting chemotherapy. He has a history of lymphoma. Got 12 rounds of chemotherapy in August. Subsequently had a recurrence. Started on a new chemo today. Patient was pretreated with Decadron Benadryl Pepcid Zofran Tylenol. Patient was given drug so for chemotherapy. It is a known reaction per oncology to have hypotension at times with this medication. He was given Solu-Medrol right after the incident. Patient felt lightheaded. Question passed out for 1-2 seconds. There was no head trauma. Patient was sent to the emergency department right away. There is no bloody stool. No coughing or congestion or upper respiratory symptoms. No chest pain or shortness of breath no nausea no vomiting. No abdominal pain. Related Data Previous Rx's Medication Instructions Recorded cephalexin 500 mg capsule 500 mg PO Q12H #20 caps 03/26/21 chlorpromazine 25 mg tablet 25 mg PO Q6H PRN Hiccups #50 tabs 04/30/21 omeprazole magnesium 10 mg oral 20 mg PO DAILY #30 ea 04/30/21 suspension,delayed release (Prilosec) dexamethasone 4 mg tablet 4 mg PO BID #30 tabs 07/20/21 amoxicillin 500 mg capsule 500 mg PO TID #30 caps 11/09/21 ondansetron 8 mg disintegrating 8 mg PO Q8H PRN Nausea #30 tabs 12/01/21 tablet tramadol 50 mg tablet (Ultram) 50 mg PO Q6H PRN Pain #30 tabs 12/01/21 Allergies Allergy/AdvReac Type Severity Reaction Status Date / Time No Known Allergies Allergy Verified 11/06/21 09:13 Review of Systems Review of Systems: Positive lightheadedness. No chest pain or shortness breath no nausea no vomiting Yes all other systems are reviewed and are negative [facility] Past Medical History Attestation statement: The following information was validated with the patient. Medical History Hodgkin lymphoma Hx of fracture of clavicle Surgical History History of bronchoscopy History of undescended testicle S/P lymph node biopsy Family History Family History Father Heart disease HTN (hypertension) Paternal Aunt Heart disease HTN (hypertension) Maternal Grandfather Diabetes Pancreatic cancer Paternal Uncle Diabetes Family/Other Asthma Social History Social History Household Members: Significant Other Alcohol intake: former Patient Tobacco Use Status: Never used Tobacco Tobacco use type: Smokeless Tobacco Use of substances other than those prescribed or required for medical reasons: Yes Substance Use Type: Marijuana Advance Directives: Yes Advance Directives on File: Yes Advance Directives Date on File: 06/08/21 Physical Exam ED Vital Signs: Vital Signs - 24 hr 12/03/21 14:29 12/03/21 14:38 12/03/21 17:01 Temperature 97.9 F 97.9 F Pulse Rate 83 84 101 H Respiratory Rate 15 15 14 Blood Pressure 105/69 105/69 134/79 Pulse Oximetry 93 93 96 Oxygen Delivery Method Nasal Cannula Nasal Cannula Room Air Oxygen Flow Rate 2 BMI result Body Mass Index 29.5 Appearance: Alert. Oriented X3. No acute distress. Eyes: Pupils equal, round and reactive to light. ENT: Pharynx normal. Neck: Normal inspection. Neck supple. No lymph nodes noted. No crepitus CVS: Normal heart rate and rhythm. Pulses normal. Normal S1 and S2 Respiratory: No respiratory distress. Breath sounds normal. No Wheezing. No rales Abdomen: Soft and nontender. No rigidity. No distention. good BS x4 Skin: Skin warm and dry. Normal skin color. Normal skin turgor. Extremities: No lower extremity edema. Neurovascular intact to all extremities. No Lacerations. No Rash Neuro: Oriented X 3. No motor deficit. No sensory deficit. Moving all extermities. No slurred speech MDM - Allergic Reaction MDM Narrative Medical decision making narrative: 31 years old with no history of coronary issues. Only history being having non-Hodgkin's lymphoma. Presented today after a new chemotherapy caused him to become hypotensive lightheaded. Patient denies any head trauma. It is a known side effect of this medication causing lightheadedness. Will give IV hydration will monitor carefully. Labs ordered. EKG ordered. Will consult with Oncology. Patient's case discussed with Dr. Biswas. After IV fluids symptomatically feels improved. Will discharge patient home. Close follow-up on an outpatient basis encourage fluids. Patient is stable condition where patient's white count is elevated but that has been chronic Medical Records Attestation: I reviewed the patient's medical records. Lab Data Attestation: I reviewed the patient's lab results. Result diagrams: 12/03/21 14:43 12/03/21 14:43 Labs: Lab Results 12/03/21 12/03/21 12/03/21 Range/Units 14:43 14:43 14:43 WBC 18.9 H (4.8-10.8) X10*3/uL RBC 4.31 L (4.60-5.80) X10*6/uL Hgb 10.9 L (14.0-18.0) g/dl Hct 34.4 L (42.0-52.0) % MCV 79.8 L (80.0-98.0) fL MCH 25.3 L (27.0-33.0) pg MCHC 31.7 (31.0-36.0) g/dl RDW 14.7 (11.0-16.0) % Plt Count 371 (160-400) X10*3/uL MPV 8.3 L (9.4-12.4) fL Immature Gran % (Auto) 2.3 H (0.0-0.4) % Neut % (Auto) 93.1 H (45-73) % Lymph % (Auto) 2.9 L (20-40) % [place] % (Auto) 1.2 L (2-11) % Eos % (Auto) 0.2 (0-4) % Baso % (Auto) 0.3 (0-2) % Lymph # (Auto) 0.5 L (1.2-4.9) X10*3/uL [place] # (Auto) 0.2 (0.1-1.2) X10*3/uL Eos # (Auto) 0.0 (0.0-0.4) X10*3/uL Baso # (Auto) 0.1 (0.0-0.2) X10*3/uL Abs Immat Gran (auto) 0.43 H (0.00-0.03) X10*3/uL Absolute Neuts (auto) 17.7 H (2.0-8.3) x10*3/uL Absolute Nucleated RBC 0.000 (0.0-0.012) X10*3/uL Nucleated RBC % (auto) 0.0 (0.0-0.2) /100WBC Smear Tech's Comments VERIFIED Sodium 137 (135-145) mmol/L Potassium 5.2 H D (3.3-5.1) mmol/L Chloride 102 (96-108) mmol/L Carbon Dioxide 25 (22-29) mmol/L Anion Gap 15 (12-20) BUN 11 (9-16) mg/dL Creatinine 0.72 (0.5-1.4) mg/dL Estim Creat Clear Calc 163.9 Estimated GFR > 60 Random Glucose 122 H (60-115) mg/dL Calcium 8.8 (8.4-10.2) mg/dL Total Bilirubin 0.6 (0.0-1.0) mg/dL Direct Bilirubin 0.2 (0.0-0.5) mg/dL AST 13 (5-37) U/L ALT 13 (0-40) U/L Alkaline Phosphatase 96 (39-117) U/L Troponin I High Sens < 3.5 (<3.5-35.0) ng/L Total Protein 7.7 (6.5-8.0) g/dL Albumin 3.5 (3.5-5.0) g/dL Discharge Plan Discharge Clinical Impression: Acute dehydration, Medication adverse effect Patient Disposition: Home, Self-Care Instructions: Near Syncope (ED) Prescriptions: No Action cephalexin 500 mg Capsule 500 mg PO Q12H Qty: 20 0RF Prilosec 10 mg Susp,Delayed Release For Recon 20 mg PO DAILY Qty: 30 4RF chlorpromazine 25 mg Tablet 25 mg PO Q6H PRN (Reason: Hiccups) Qty: 50 4RF dexamethasone 4 mg Tablet 4 mg PO BID Qty: 30 0RF Rx Instructions: for 2 days after chemo amoxicillin 500 mg Capsule 500 mg PO TID Qty: 30 0RF tramadol [Ultram] 50 mg Tablet 50 mg PO Q6H PRN (Reason: Pain) Qty: 30 0RF ondansetron 8 mg Tablet,Disintegrating 8 mg PO Q8H PRN (Reason: Nausea) Qty: 30 3RF Referrals: Alexandria Wallis MD [Physician] -
[2021-12-03 14:29] VITALS: BP 105/69; PULSE 83; RESP 15; TEMP 36.6; O2SAT 93; BMI 29.5
[2021-12-03 14:38] VITALS: BP 105/69; PULSE 84; RESP 15; O2SAT 93
[2021-12-03 15:00] LABS: Basophils Absolute Auto 0.1 X10*3/uL (0.0-0.2); Basophils Percent Auto 0.3 % (0-2); Eosinophils Percent Auto 0.2 % (0-4); Hematocrit 34.4 % (42.0-52.0); Hemoglobin 10.9 g/dl (14.0-18.0); Imm Gran Abs Auto 0.43 X10*3/uL (0.00-0.03); Imm Gran Pct Auto 2.3 % (0.0-0.4); Lymphocytes Absolute Auto 0.5 X10*3/uL (1.2-4.9); Lymphocytes Percent Auto 2.9 % (20-40); MANUAL DIFF FLAG SCAN; Mean Corpuscular HGB Conc 31.7 g/dl (31.0-36.0); Mean Corpuscular Hemoglobin 25.3 pg (27.0-33.0); Mean Corpuscular Volume 79.8 fL (80.0-98.0); Mean Platelet Volume 8.3 fL (9.4-12.4); Monocytes Absolute Auto 0.2 X10*3/uL (0.1-1.2); Monocytes Percent Auto 1.2 % (2-11); Neutrophils Absolute Auto 17.7 x10*3/uL (2.0-8.3); Neutrophils Percent Auto 93.1 % (45-73); Platelet Count 371 X10*3/uL (160-400); Red Blood Count 4.31 X10*6/uL (4.60-5.80); Red Cell Distribution Width 14.7 % (11.0-16.0); SCAN SMEAR FLAG 1; White Blood Count 18.9 X10*3/uL (4.8-10.8)
[2021-12-03] MEDS: 0.9 % Sodium Chloride 1,000 ML 999 ML IV (15:09)
[2021-12-03 15:17] LABS: Alanine Aminotransferase 13 U/L (0-40); Albumin Level 3.5 g/dL (3.5-5.0); Alkaline Phosphatase 96 U/L (39-117); Anion Gap 15 (12-20); Aspartate Amino Transferase 13 U/L (5-37); Bilirubin Direct 0.2 mg/dL (0.0-0.5); Bilirubin Total 0.6 mg/dL (0.0-1.0); Blood Urea Nitrogen 11 mg/dL (9-16); Calcium 8.8 mg/dL (8.4-10.2); Carbon Dioxide 25 mmol/L (22-29); Chloride 102 mmol/L (96-108); Creatinine Clr Calc Pharmacy 163.9; Estimated Glomerular Filt Rate > 60; Glucose Random 122 mg/dL (60-115); Potassium 5.2 mmol/L (3.3-5.1); Sodium 137 mmol/L (135-145); Total Protein 7.7 g/dL (6.5-8.0)
[2021-12-03 15:21] LABS: Troponin-I High Sensitivity < 3.5 ng/L (<3.5-35.0)
[2021-12-03 15:22] LABS: SLIDE REVIEW VERIFIED
[2021-12-03 17:01] VITALS: BP 134/79; PULSE 101; RESP 14; TEMP 36.6; O2SAT 96
== END 2021-12-03 18:01 | disposition home or self-care (01) ==
PROVIDERS: Emergency Provider Emergency Medicine Emergency Medical Services
DX: E86.0 Dehydration (principal); T45.1X5A Adverse effect of antineoplastic and immunosuppressive drugs, initial encounter; R42 Dizziness and giddiness; Y92.538 Other ambulatory health services establishments as the place of occurrence of the external cause; C81.90 Hodgkin lymphoma, unspecified, unspecified site
CPT/HCPCS: 36415; 80048; 80076; 84484; 85025; 93005; 96361; 96374; 99284; 99285; J1642

== ENCOUNTER 2022-04-02 14:58 | Emergency (ER) | payer OTHER, MEDICAID, SELFPAY ==
--- NOTE | 2022-04-02 15:25 | ED.GENADULT ---
HPI - General Adult General Chief complaint: Headache <JEREMIE Alvarez - Last Filed: 04/02/22 15:34> Stated complaint: headache, vomiting, chills <JEREMIE Alvarez - Last Filed: 04/02/22 15:34> Time Seen by Provider: 04/02/22 15:38 <JEREMIE Alvarez - Last Filed: 04/02/22 15:34> Source: patient <JEREMIE Cox Last Filed: 04/02/22 17:14> Mode of arrival: ambulatory <JEREMIE Cox Last Filed: 04/02/22 17:14> Limitations: no limitations <JEREMIE Cox Last Filed: 04/02/22 17:14> History of Present Illness HPI narrative: Patient is a 31 year old assigned male at with a history of lymphoma post bone marrow transplant earlier this month at [facility] presenting to the emergency department today with a headache, nausea, and vomiting. Patient states that he got a bone marrow transplant earlier this month in [place] and was feeling OK but over the last 3 days he has felt unwell with a headache and 2 days with vomiting. Patient denies any dizziness, lightheadedness, abdominal pain, nausea, fever, chills, blurry vision, double vision, loss of vision, chest pain, difficulty breathing, shortness of breath, back pain, night sweats, pain with urination, increased urinary frequency, increased urinary urgency, blood in his urine or stool, syncope or a near syncopal episode, recent trauma or falls, bowel incontinence, bladder incontinence, bowel retention, bladder retention, or any other complaints at this time. <JEREMIE Cox - Last Filed: 04/02/22 17:14> Onset (ago): day(s) (3) <JEREMIE Cox - Last Filed: 04/02/22 17:14> Location: head <JEREMIE Cox Last Filed: 04/02/22 17:14> Radiation: non-radiation <JEREMIE Cox Last Filed: 04/02/22 17:14> Severity: mild <JEREMIE Cox Last Filed: 04/02/22 17:14> Severity scale (1-10): 3 <JEREMIE Cox - Last Filed: 04/02/22 17:14> Quality: dull <JEREMIE Cox - Last Filed: 04/02/22 17:14> Pain Consistency: constant <JEREMIE Cox - Last Filed: 04/02/22 17:14> Relieving factors: none <JEREMIE Cox - Last Filed: 04/02/22 17:14> Exacerbating factors: none <JEREMIE Cox - Last Filed: 04/02/22 17:14> Associated symptoms: nausea/vomiting <JEREMIE Cox - Last Filed: 04/02/22 17:14> Treatments prior to arrival: none <EJREMIE Cox - Last Filed: 04/02/22 17:14> Related Data Home medications: Home Medications Medication Instructions Recorded Confirmed acyclovir 400 mg tablet 400 mg PO TID 03/30/22 03/31/22 atovaquone 750 mg/5 mL oral 750 mg PO Q12H 03/30/22 03/31/22 suspension benzocaine 15 mg-menthol 3.6 mg 1 saul mucous membrane Q2-4H PRN 03/30/22 03/31/22 lozenges Sore Throat cholecalciferol (vitamin D3) 50 50 mcg PO DAILY 03/30/22 03/31/22 mcg (2,000 unit) tablet diphenhydramine HCl 25 mg tablet 25 mg PO BEDTIME PRN Itching 03/30/22 03/31/22 esomeprazole magnesium 20 mg 20 mg PO DAILY 03/30/22 03/31/22 tablet,delayed release folic acid 1 mg tablet 1 mg PO DAILY 03/30/22 03/31/22 hydroxyzine HCl 25 mg tablet 25 mg PO QID PRN Itching 03/30/22 03/31/22 loperamide 2 mg tablet 2 mg PO QID PRN Diarrhea 03/30/22 03/31/22 magnesium oxide 400 mg PO BID 03/30/22 03/31/22 therapeutic multivitamin 1 tab PO DAILY 03/30/22 03/31/22 Previous Rx's Medication Instructions Recorded ondansetron 8 mg disintegrating 8 mg PO Q8H PRN Nausea #30 tabs 12/01/21 tablet <JEREMIE Alvarez Last Filed: 04/02/22 15:34> Allergies/adverse reactions: Allergies Allergy/AdvReac Type Severity Reaction Status Date / Time levofloxacin [From Levaquin] Allergy Rash Verified 03/31/22 15:15 <JEREMIE Alvarez Last Filed: 04/02/22 15:34> Review of Systems Constitutional: Constitutional: Reports no additional constitutional complaints, Denies chills, Denies fever(s), Reports headache(s) and Denies night sweats <JEREMIE Cox Last Filed: 04/02/22 17:14> Eyes: Eyes: Reports no additional eye complaints, Denies blurry vision, Denies change in vision, Denies diplopia, Denies eye discharge, Denies loss of vision and Denies eye pain <JEREMIE Cox Last Filed: 04/02/22 17:14> ENT: Denies dizziness and Reports headache(s) <JEREMIE Cox Last Filed: 04/02/22 17:14> Cardiovascular: Cardiovascular: Reports no additional cardiovascular complaints, Denies chest pain, Denies lightheadedness, Denies Loss of Consciousness and Denies dyspnea <JEREMIE Cox Last Filed: 04/02/22 17:14> Respiratory: Respiratory: Reports no additional respiratory complaints and Denies dyspnea <JEREMIE Cox Last Filed: 04/02/22 17:14> Gastrointestinal: Gastrointestinal: Reports no additional gastrointestinal complaints, Denies abdominal pain, Denies melena, Denies hematochezia, Denies change in bowel habits, Denies change in stool character, Reports nausea and Reports vomiting <JEREMIE Cox Last Filed: 04/02/22 17:14> Genitourinary: Genitourinary: Reports no additional male genitourinary complaints, Denies hematuria, Denies oliguria, Denies difficulty urinating, Denies dysuria, Denies urinary frequency, Denies urinary hesitancy, Denies urinary incontinence and Denies urinary urgency <JEREMIE Cox Last Filed: 04/02/22 17:14> Musculoskeletal: Musculoskeletal: Reports no additional musculoskeletal complaints, Denies numbness and Denies tingling <JEREMIE Cox Last Filed: 04/02/22 17:14> Neurologic: Denies dizziness, Reports headache(s), Denies loss of vision, Denies numbness and Denies tingling <JEREMIE Cox - Last Filed: 04/02/22 17:14> Psychiatric: Psychiatric: Reports no additional psychiatric complaints <JEREMIE Cox - Last Filed: 04/02/22 17:14> Endocrine: Endocrine: Reports no additional endocrine complaints <JEREMIE Cox - Last Filed: 04/02/22 17:14> Hematologic/Lymphatic: Hematologic/Lymphatic: Reports no additional hematologic/lymphatic complaints <JEREMIE Cox - Last Filed: 04/02/22 17:14> Allergic/Immunologic: Allergic/Immunologic: Reports no additional allergic/immunologic complaints <JEREMIE Cox - Last Filed: 04/02/22 17:14> [facility] Past Medical History Attestation statement: The following information was validated with the patient. <JEREMIE Cox - Last Filed: 04/02/22 17:14> Source: old records reviewed and nursing notes reviewed <JEREMIE Cox - Last Filed: 04/02/22 17:14> Medical History: Medical History Hodgkin lymphoma Hx of fracture of clavicle <JEREMIE Alvarez - Last Filed: 04/02/22 15:34> Surgical History: Surgical History History of bronchoscopy History of undescended testicle S/P lymph node biopsy <JEREMIE Alvarez - Last Filed: 04/02/22 15:34> Family History Family History: Family History Father Heart disease HTN (hypertension) Paternal Aunt Heart disease HTN (hypertension) Maternal Grandfather Diabetes Pancreatic cancer Paternal Uncle Diabetes Family/Other Asthma <JEREMIE Alvarez - Last Filed: 04/02/22 15:34> Social History Social History: Social History Household Members: Significant Other and Children Housing: House Alcohol intake: former Patient Tobacco Use Status: Never used Tobacco Tobacco use type: Smokeless Tobacco Substance Use Type: Marijuana Advance Directives: Yes Advance Directives on File: Yes Advance Directives Date on File: 06/08/21 service: No Current occupational status: unemployed <JEREMIE Alvarez - Last Filed: 04/02/22 15:34> Physical Exam ED Vital Signs: Vital Signs - 24 hr 04/02/22 15:28 Temperature 97.9 F Pulse Rate 104 H Respiratory Rate 18 Pulse Oximetry 95 Oxygen Delivery Method Room Air BMI result Body Mass Index 29.5 <JEREMIE Alvarez - Last Filed: 04/02/22 15:34> Vital Signs - 24 hr 04/02/22 15:28 Temperature 97.9 F Pulse Rate 104 H Respiratory Rate 18 Pulse Oximetry 95 Oxygen Delivery Method Room Air BMI result Body Mass Index 29.5 <JEREMIE Cox - Last Filed: 04/02/22 17:14> Const General: cooperative, no acute distress, alert and awake <JEREMIE Cox - Last Filed: 04/02/22 17:14> Nutritional Appearance: well nourished <JEREMIE Cox - Last Filed: 04/02/22 17:14> Orientation/consciousness: patient oriented x3 <JEREMIE Cox - Last Filed: 04/02/22 17:14> Limitations: no limitations <JEREMIE Cox - Last Filed: 04/02/22 17:14> HENMT Head: Yes normal to inspection and Yes atraumatic <JEREMIE Cox - Last Filed: 04/02/22 17:14> Ears: hearing grossly normal bilaterally and external ears normal <JEREMIE Cox - Last Filed: 04/02/22 17:14> General nose exam: Normal external nose present, no nasal discharge noted and no epistaxis <JEREMIE Cox - Last Filed: 04/02/22 17:14> Face and sinus: Yes normal facial exam, No abrasion and No laceration <JEREMIE Cox - Last Filed: 04/02/22 17:14> Mouth: Normal oral and palatal mucosa present, no drooling and no muffled voice <JEREMIE Cox - Last Filed: 04/02/22 17:14> Eyes General: appearance normal, both eyes and all related structures <Sonal Ames MI - Last Filed: 04/02/22 17:14> Periorbital: periorbital findings normal <Sonal Ames MI - Last Filed: 04/02/22 17:14> Eyelids: Yes eyelids normal <Sonal Amse PA - Last Filed: 04/02/22 17:14> Conjunctivae: conjunctivae normal <Sonal Ames MI - Last Filed: 04/02/22 17:14> Pupils: Equal, round and reactive pupils present <Sonal Ames PA - Last Filed: 04/02/22 17:14> EOM: EOMs intact bilaterally <Sonal Ames MI - Last Filed: 04/02/22 17:14> Neck Neck: Yes normal visual inspection, Yes full ROM and Yes no lymphadenopathy <Sonal Ames MI - Last Filed: 04/02/22 17:14> Chest Chest palpation & inspection: normal inspection of the chest <Sonal Ames MI - Last Filed: 04/02/22 17:14> Resp Effort & Inspection: normal respiratory effort and able to speak in complete sentences <Sonal Ames MI - Last Filed: 04/02/22 17:14> Auscultation: clear to auscultation bilaterally <Sonal Ames MI - Last Filed: 04/02/22 17:14> Cardio Rate: regular rate <Sonal Ames MI - Last Filed: 04/02/22 17:14> Rhythm: regular rhythm <Sonal Ames MI - Last Filed: 04/02/22 17:14> GI Inspection: Yes normal to inspection <Sonal Ames MI - Last Filed: 04/02/22 17:14> Palpation (GI): Soft to palpation, not firm, nontender, no guarding and not rigid <Sonal Ames MI - Last Filed: 04/02/22 17:14> Neuro General: patient oriented x3 and moves all extremities <Sonal Ames MI - Last Filed: 04/02/22 17:14> Cranial nerves: Yes Equal, round and reactive pupils present <Sonal Ames MI - Last Filed: 04/02/22 17:14> Cognition (Neuro): normal cognition <Sonal AmesJEREMIE - Last Filed: 04/02/22 17:14> Motor exam (neuro): 5/5 motor strength present throughout <Sonal AmesJEREMIE - Last Filed: 04/02/22 17:14> Sensory Exam: Normal double simultaneous stimulation for sensation <Sonal AmesJEREMIE - Last Filed: 04/02/22 17:14> Coordination: [id number] test normal <Sonal AmesJEREMIE - Last Filed: 04/02/22 17:14> Extrem General: Yes normal to inspection, Yes full ROM and Yes capillary refill normal <Sonal AmesJEREMIE - Last Filed: 04/02/22 17:14> Psych Appearance: grossly normal <Sonal AmesJEREMIE - Last Filed: 04/02/22 17:14> Mental Status: mental status grossly normal <Sonal AmesJEREMIE - Last Filed: 04/02/22 17:14> Affect: normal affect <Sonal AmesJEREMIE - Last Filed: 04/02/22 17:14> Attitude: cooperative <Sonal AmesJEREMIE - Last Filed: 04/02/22 17:14> Thought process: Normal thought process present <Sonal AmesJEREMIE - Last Filed: 04/02/22 17:14> Thought content: Normal thought content present <Sonal AmesJEREMIE - Last Filed: 04/02/22 17:14> Insight: Good insight present (Psych) <Sonal AmesJEREMIE - Last Filed: 04/02/22 17:14> Course Course Course Narrative: RME - 31 yo male with history of Hodgkin lymphoma s/p recent bone marrow (03/16) transplant in [place], blood clot near his port previously on Eliquis, hx thrombocytopenia (recovered from 20K to 107K) who presents to the ER with severe left sided headache, vomiting, chills for the last 3 days. He states the headache preceded the vomiting. He states he is unable to keep down any food. He has not yet restarted his Eliquis because he was waiting for a refill. Dr. Wallis instructed him to come to the ER. Stable to go back to the waiting room for now until a bed is available. CT head, labs, viral swabs ordered. Plan per provider in the Main ER. (Dr. Wallis would like to be updated). <JEREMIE Alvarez - Last Filed: 04/02/22 15:34> Medications Administered Discontinued Medications Generic Name Dose Route Start Last Admin Trade Name Freq PRN Reason Stop Dose Admin Sodium Chloride 1,000 mls @ 999 mls/hr 04/02/22 16:00 04/02/22 16:28 Ns IV 04/02/22 17:00 999 mls/hr .Q1H1M CARIDAD Administration Ondansetron HCl 4 mg 04/02/22 15:54 04/02/22 16:30 Ondansetron Hcl 4 Mg/2 Ml Vial IVPUSH 04/02/22 15:55 4 mg ONCE ONE Administration <JEREMIE Alvarez - Last Filed: 04/02/22 15:34> Medications Administered Discontinued Medications Generic Name Dose Route Start Last Admin Trade Name Freq PRN Reason Stop Dose Admin Sodium Chloride 1,000 mls @ 999 mls/hr 04/02/22 16:00 04/02/22 16:28 Ns IV 04/02/22 17:00 999 mls/hr .Q1H1M CARIDAD Administration Ondansetron HCl 4 mg 04/02/22 15:54 04/02/22 16:30 Ondansetron Hcl 4 Mg/2 Ml Vial IVPUSH 04/02/22 15:55 4 mg ONCE ONE Administration <JEREMIE Cox - Last Filed: 04/02/22 17:14> Medical Decision Making Medical Decision Making MDM Narrative: Patient is a 31 year old assigned male at with a history of lymphoma post bone marrow transplant presenting to the emergency department today with a headache, nausea, and vomiting. Patient's physical exam was unremarkable. Patient's blood work showed a platelet count of 77 but was otherwise unremarkable. Patient's chest x-ray showed no acute process. Patient's head CT showed no acute process. Patient's RSV/COVID/Influenza swab was negative. I spoke to the patient's oncologist, Dr. Wallis who was reassured with these results and recommended the patient be discharged and follow up out patient as planned. I explained my physical exam findings as well as all test results to the patient. I answered all questions asked by the patient. Patient received IV fluid which he stated helped his symptoms significantly. I stressed the importance of the patient taking his medication as prescribed. I stressed the importance of the patient following up with his primary care provider and his oncologist. I stressed the importance of the patient returning to the emergency department immediately if his symptoms were to worsen or if he were to develop any dizziness, shortness of breath, difficulty breathing, chest pain, blurry vision, loss of vision, nausea, vomiting, abdominal pain, fever, chills, back pain, or any other complaints. Patient verbalized agreement and understanding with this treatment plan and discharge. 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 <JEREMIE Cox - Last Filed: 04/02/22 17:14> Result Diagrams: : 04/02/22 15:45 04/02/22 15:45 <JEREMIE Alvarez - Last Filed: 04/02/22 15:34> Labs: Lab Results 04/02/22 04/02/22 04/02/22 Range/Units 15:45 15:45 15:45 WBC 6.0 (4.8-10.8) X10*3/uL RBC 3.88 L (4.60-5.80) X10*6/uL Hgb 11.7 L (14.0-18.0) g/dl Hct 34.5 L (42.0-52.0) % MCV 88.9 (80.0-98.0) fL MCH 30.2 (27.0-33.0) pg MCHC 33.9 (31.0-36.0) g/dl RDW 13.2 (11.0-16.0) % Plt Count 77 L D (160-400) X10*3/uL MPV 11.8 (9.4-12.4) fL Immature Gran % (Auto) 2.0 H (0.0-0.4) % Neut % (Auto) 71.3 (45-73) % Lymph % (Auto) 11.5 L (20-40) % [place] % (Auto) 14.4 H (2-11) % Eos % (Auto) 0.0 (0-4) % Baso % (Auto) 0.8 (0-2) % Lymph # (Auto) 0.7 L (1.2-4.9) X10*3/uL [place] # (Auto) 0.9 (0.1-1.2) X10*3/uL Eos # (Auto) 0.0 (0.0-0.4) X10*3/uL Baso # (Auto) 0.1 (0.0-0.2) X10*3/uL Abs Immat Gran (auto) 0.12 H (0.00-0.03) X10*3/uL Absolute Neuts (auto) 4.3 (2.0-8.3) x10*3/uL Absolute Nucleated RBC 0.000 (0.0-0.012) X10*3/uL Nucleated RBC % (auto) 0.0 (0.0-0.2) /100WBC PT 13.3 H (10.0-13.1) SEC INR 1.2 H (0.9-1.1) APTT 28.8 (26.0-36.4) SEC Sodium 138 (135-145) mmol/L Potassium 4.2 (3.3-5.1) mmol/L Chloride 100 (96-108) mmol/L Carbon Dioxide 29 (22-29) mmol/L Anion Gap 13 (12-20) BUN 9 (9-16) mg/dL Creatinine 0.68 (0.5-1.4) mg/dL Estim Creat Clear Calc 173.6 Estimated GFR > 60 Random Glucose 116 H (60-115) mg/dL Calcium 9.5 (8.4-10.2) mg/dL Magnesium 2.1 (1.6-2.6) mg/dL Total Bilirubin 0.3 (0.0-1.0) mg/dL Direct Bilirubin < 0.2 (0.0-0.5) mg/dL AST 37 (5-37) U/L ALT 55 H (0-40) U/L Alkaline Phosphatase 82 (39-117) U/L Total Protein 7.3 (6.5-8.0) g/dL Albumin 3.9 (3.5-5.0) g/dL Influenza Type A (PCR) (Negative) Influenza Type B (PCR) (Negative) RSV RNA Qual (PCR) (Negative) SARS-CoV-2 RNA (RT-PCR) (Negative) 04/02/22 Range/Units 15:45 WBC (4.8-10.8) X10*3/uL RBC (4.60-5.80) X10*6/uL Hgb (14.0-18.0) g/dl Hct (42.0-52.0) % MCV (80.0-98.0) fL MCH (27.0-33.0) pg MCHC (31.0-36.0) g/dl RDW (11.0-16.0) % Plt Count (160-400) X10*3/uL MPV (9.4-12.4) fL Immature Gran % (Auto) (0.0-0.4) % Neut % (Auto) (45-73) % Lymph % (Auto) (20-40) % [place] % (Auto) (2-11) % Eos % (Auto) (0-4) % Baso % (Auto) (0-2) % Lymph # (Auto) (1.2-4.9) X10*3/uL [place] # (Auto) (0.1-1.2) X10*3/uL Eos # (Auto) (0.0-0.4) X10*3/uL Baso # (Auto) (0.0-0.2) X10*3/uL Abs Immat Gran (auto) (0.00-0.03) X10*3/uL Absolute Neuts (auto) (2.0-8.3) x10*3/uL Absolute Nucleated RBC (0.0-0.012) X10*3/uL Nucleated RBC % (auto) (0.0-0.2) /100WBC PT (10.0-13.1) SEC INR (0.9-1.1) APTT (26.0-36.4) SEC Sodium (135-145) mmol/L Potassium (3.3-5.1) mmol/L Chloride (96-108) mmol/L Carbon Dioxide (22-29) mmol/L Anion Gap (12-20) BUN (9-16) mg/dL Creatinine (0.5-1.4) mg/dL Estim Creat Clear Calc Estimated GFR Random Glucose (60-115) mg/dL Calcium (8.4-10.2) mg/dL Magnesium (1.6-2.6) mg/dL Total Bilirubin (0.0-1.0) mg/dL Direct Bilirubin (0.0-0.5) mg/dL AST (5-37) U/L ALT (0-40) U/L Alkaline Phosphatase (39-117) U/L Total Protein (6.5-8.0) g/dL Albumin (3.5-5.0) g/dL Influenza Type A (PCR) NEGATIVE (Negative) Influenza Type B (PCR) NEGATIVE (Negative) RSV RNA Qual (PCR) NEGATIVE (Negative) SARS-CoV-2 RNA (RT-PCR) NEGATIVE (Negative) <JEREMIE Alvarez - Last Filed: 04/02/22 15:34> Lab Results 04/02/22 04/02/22 04/02/22 Range/Units 15:45 15:45 15:45 WBC 6.0 (4.8-10.8) X10*3/uL RBC 3.88 L (4.60-5.80) X10*6/uL Hgb 11.7 L (14.0-18.0) g/dl Hct 34.5 L (42.0-52.0) % MCV 88.9 (80.0-98.0) fL MCH 30.2 (27.0-33.0) pg MCHC 33.9 (31.0-36.0) g/dl RDW 13.2 (11.0-16.0) % Plt Count 77 L D (160-400) X10*3/uL MPV 11.8 (9.4-12.4) fL Immature Gran % (Auto) 2.0 H (0.0-0.4) % Neut % (Auto) 71.3 (45-73) % Lymph % (Auto) 11.5 L (20-40) % [place] % (Auto) 14.4 H (2-11) % Eos % (Auto) 0.0 (0-4) % Baso % (Auto) 0.8 (0-2) % Lymph # (Auto) 0.7 L (1.2-4.9) X10*3/uL [place] # (Auto) 0.9 (0.1-1.2) X10*3/uL Eos # (Auto) 0.0 (0.0-0.4) X10*3/uL Baso # (Auto) 0.1 (0.0-0.2) X10*3/uL Abs Immat Gran (auto) 0.12 H (0.00-0.03) X10*3/uL Absolute Neuts (auto) 4.3 (2.0-8.3) x10*3/uL Absolute Nucleated RBC 0.000 (0.0-0.012) X10*3/uL Nucleated RBC % (auto) 0.0 (0.0-0.2) /100WBC PT 13.3 H (10.0-13.1) SEC INR 1.2 H (0.9-1.1) APTT 28.8 (26.0-36.4) SEC Sodium 138 (135-145) mmol/L Potassium 4.2 (3.3-5.1) mmol/L Chloride 100 (96-108) mmol/L Carbon Dioxide 29 (22-29) mmol/L Anion Gap 13 (12-20) BUN 9 (9-16) mg/dL Creatinine 0.68 (0.5-1.4) mg/dL Estim Creat Clear Calc 173.6 Estimated GFR > 60 Random Glucose 116 H (60-115) mg/dL Calcium 9.5 (8.4-10.2) mg/dL Magnesium 2.1 (1.6-2.6) mg/dL Total Bilirubin 0.3 (0.0-1.0) mg/dL Direct Bilirubin < 0.2 (0.0-0.5) mg/dL AST 37 (5-37) U/L ALT 55 H (0-40) U/L Alkaline Phosphatase 82 (39-117) U/L Total Protein 7.3 (6.5-8.0) g/dL Albumin 3.9 (3.5-5.0) g/dL Influenza Type A (PCR) (Negative) Influenza Type B (PCR) (Negative) RSV RNA Qual (PCR) (Negative) SARS-CoV-2 RNA (RT-PCR) (Negative) 04/02/22 Range/Units 15:45 WBC (4.8-10.8) X10*3/uL RBC (4.60-5.80) X10*6/uL Hgb (14.0-18.0) g/dl Hct (42.0-52.0) % MCV (80.0-98.0) fL MCH (27.0-33.0) pg MCHC (31.0-36.0) g/dl RDW (11.0-16.0) % Plt Count (160-400) X10*3/uL MPV (9.4-12.4) fL Immature Gran % (Auto) (0.0-0.4) % Neut % (Auto) (45-73) % Lymph % (Auto) (20-40) % [place] % (Auto) (2-11) % Eos % (Auto) (0-4) % Baso % (Auto) (0-2) % Lymph # (Auto) (1.2-4.9) X10*3/uL [place] # (Auto) (0.1-1.2) X10*3/uL Eos # (Auto) (0.0-0.4) X10*3/uL Baso # (Auto) (0.0-0.2) X10*3/uL Abs Immat Gran (auto) (0.00-0.03) X10*3/uL Absolute Neuts (auto) (2.0-8.3) x10*3/uL Absolute Nucleated RBC (0.0-0.012) X10*3/uL Nucleated RBC % (auto) (0.0-0.2) /100WBC PT (10.0-13.1) SEC INR (0.9-1.1) APTT (26.0-36.4) SEC Sodium (135-145) mmol/L Potassium (3.3-5.1) mmol/L Chloride (96-108) mmol/L Carbon Dioxide (22-29) mmol/L Anion Gap (12-20) BUN (9-16) mg/dL Creatinine (0.5-1.4) mg/dL Estim Creat Clear Calc Estimated GFR Random Glucose (60-115) mg/dL Calcium (8.4-10.2) mg/dL Magnesium (1.6-2.6) mg/dL Total Bilirubin (0.0-1.0) mg/dL Direct Bilirubin (0.0-0.5) mg/dL AST (5-37) U/L ALT (0-40) U/L Alkaline Phosphatase (39-117) U/L Total Protein (6.5-8.0) g/dL Albumin (3.5-5.0) g/dL Influenza Type A (PCR) NEGATIVE (Negative) Influenza Type B (PCR) NEGATIVE (Negative) RSV RNA Qual (PCR) NEGATIVE (Negative) SARS-CoV-2 RNA (RT-PCR) NEGATIVE (Negative) <JEREMIE Cox - Last Filed: 04/02/22 17:14> Radiology Impression Discussion of test interpretation with radiology: I have reviewed the radiologist's reading. <JEREMIE Cox - Last Filed: 04/02/22 17:14> Radiologist Impression: EXAMINATION: XR CHEST CLINICAL INFORMATION: Nausea, vomiting, diarrhea COMPARISON: 11/09/2021 TECHNIQUE: Frontal view of the chest was obtained. FINDINGS: CT compatible left chest wall port terminates over the right atrium. The lungs are well expanded. There is no focal consolidation, edema, or effusion. No pneumothorax. The cardiomediastinal silhouette is within normal limits. No acute osseous abnormality. XR/XR chest 1V IMPRESSION: No acute pulmonary disease. Dictated By: Devyn Hodgson MD Signed By: Electronically signed by Devyn Hodgson MD 04/02/22 1619 EXAMINATION: CT HEAD WITHOUT CONTRAST CLINICAL INFORMATION: Severe headache.? COMPARISON: 11/14/[address] scan. TECHNIQUE: Contiguous axial imaging was performed from the skull base to vertex without intravenous administration of contrast. Coronal and sagittal reformatted images were obtained. This CT examination was performed using dose optimization techniques as appropriate, variously including the following: *Automated exposure control *Adjustment of mA and/or kV according to patient size (this includes techniques or standardized protocols for targeted exams where dose is matched to indication/reason for exam; i.e. extremities or head) *Use of iterative reconstruction technique DLP: 677 mGy-cm FINDINGS: The cortical sulci are normal. The lateral ventricles are symmetrical. The third and fourth ventricles are in their normal midline position. The basilar and prepontine cisterns are unremarkable. There is no acute intra or extracerebral abnormality. There is no mass effect or midline shift. Sections through the bony calvarium are unremarkable. The paranasal sinuses are clear. The bony orbits and orbital contents are unremarkable. CT/CT head/brain wo IV con IMPRESSION: No acute intracranial pathology. Dictated By: Zackary Real MD Signed By: Electronically signed by Zackary Real MD 04/02/22 1620 <JEREMIE Cox - Last Filed: 04/02/22 17:14> Discharge Plan Discharge Clinical Impression: Nausea & vomiting <JEREMIE Alvarez - Last Filed: 04/02/22 15:34> Patient Disposition: Home, Self-Care <JEREMIE Alvarez Last Filed: 04/02/22 15:34> Instructions: Acute Nausea and Vomiting (ED) <JEREMIE Alvarez Last Filed: 04/02/22 15:34> Additional Instructions: Follow up with your primary care provider and your oncologist. Return to the emergency department immediately if your symptoms worsen or if you develop any dizziness, shortness of breath, difficulty breathing, chest pain, blurry vision, loss of vision, nausea, vomiting, abdominal pain, fever, chills, back pain, or any other complaints. <JEREMIE Alvarez - Last Filed: 04/02/22 15:34> Prescriptions: No Action ondansetron 8 mg Tablet,Disintegrating 8 mg PO Q8H PRN (Reason: Nausea) Qty: 30 3RF therapeutic multivitamin Tablet 1 tab PO DAILY acyclovir 400 mg Tablet 400 mg PO TID folic acid 1 mg Tablet 1 mg PO DAILY atovaquone 750 mg/5 mL Suspension 750 mg PO Q12H Rx Instructions: must administer with food, preferably a high-fat meal cholecalciferol (vitamin D3) 50 mcg (2,000 unit) Tablet 50 mcg PO DAILY magnesium oxide 400 mg magnesium Tablet 400 mg PO BID loperamide 2 mg Tablet 2 mg PO QID PRN (Reason: Diarrhea) diphenhydramine HCl 25 mg Tablet 25 mg PO BEDTIME PRN (Reason: Itching) hydroxyzine HCl 25 mg Tablet 25 mg PO QID PRN (Reason: Itching) esomeprazole magnesium 20 mg Tablet,Delayed Release (Dr/Ec) 20 mg PO DAILY benzocaine-menthol 15-3.6 mg Lozenge 1 saul MUCOUS MEMBRANE Q2-4H PRN (Reason: Sore Throat) <JEREMIE Alvarez - Last Filed: 04/02/22 15:34> Referrals: [facility] [place]] (Call to establish and follow up with a primary care provider. If you already have a primary care provider, please follow up with them. ) [facility] [place] [Provider Group] (Call to establish and follow up with a primary care provider. If you already have a primary care provider, please follow up with them. ) [facility] [Provider Group] (Call to establish and follow up with a primary care provider. If you already have a primary care provider, please follow up with them. ) [facility] Oncology/Hematology [Provider Group] <JEREMIE Alvarez - Last Filed: 04/02/22 15:34> Stand Alone Forms: Work/School Release <JEREMIE Alvarez - Last Filed: 04/02/22 15:34> Print Language: Armenian <JEREMIE Alvarez Last Filed: 04/02/22 15:34>
[2022-04-02 15:28] VITALS: PULSE 104; RESP 18; TEMP 36.6; O2SAT 95; BMI 29.5
[2022-04-02 15:55] LABS: MANUAL DIFF FLAG NO
[2022-04-02 16:00] LABS: Basophils Absolute Auto 0.1 X10*3/uL (0.0-0.2); Basophils Percent Auto 0.8 % (0-2); Hematocrit 34.5 % (42.0-52.0); Hemoglobin 11.7 g/dl (14.0-18.0); Imm Gran Abs Auto 0.12 X10*3/uL (0.00-0.03); Lymphocytes Absolute Auto 0.7 X10*3/uL (1.2-4.9); Lymphocytes Percent Auto 11.5 % (20-40); Mean Corpuscular HGB Conc 33.9 g/dl (31.0-36.0); Mean Corpuscular Hemoglobin 30.2 pg (27.0-33.0); Mean Corpuscular Volume 88.9 fL (80.0-98.0); Mean Platelet Volume 11.8 fL (9.4-12.4); Monocytes Absolute Auto 0.9 X10*3/uL (0.1-1.2); Monocytes Percent Auto 14.4 % (2-11); Neutrophils Absolute Auto 4.3 x10*3/uL (2.0-8.3); Neutrophils Percent Auto 71.3 % (45-73); Red Blood Count 3.88 X10*6/uL (4.60-5.80); Red Cell Distribution Width 13.2 % (11.0-16.0)
[2022-04-02 16:02] LABS: Platelet Count 77 X10*3/uL (160-400)
[2022-04-02 16:03] LABS: INTERNATIONAL NORM RATIO 1.2 (0.9-1.1); Prothrombin Time 13.3 SEC (10.0-13.1)
[2022-04-02 16:06] LABS: Partial Thromboplastin Time 28.8 SEC (26.0-36.4)
[2022-04-02 16:16] LABS: Alanine Aminotransferase 55 U/L (0-40); Albumin Level 3.9 g/dL (3.5-5.0); Alkaline Phosphatase 82 U/L (39-117); Anion Gap 13 (12-20); Aspartate Amino Transferase 37 U/L (5-37); Bilirubin Direct < 0.2 mg/dL (0.0-0.5); Bilirubin Total 0.3 mg/dL (0.0-1.0); Blood Urea Nitrogen 9 mg/dL (9-16); Calcium 9.5 mg/dL (8.4-10.2); Carbon Dioxide 29 mmol/L (22-29); Chloride 100 mmol/L (96-108); Creatinine Clr Calc Pharmacy 173.6; Estimated Glomerular Filt Rate > 60; Glucose Random 116 mg/dL (60-115); Magnesium 2.1 mg/dL (1.6-2.6); Potassium 4.2 mmol/L (3.3-5.1); Sodium 138 mmol/L (135-145); Total Protein 7.3 g/dL (6.5-8.0)
[2022-04-02] MEDS: 0.9 % Sodium Chloride 1,000 ML 999 ML IV (16:28)
[2022-04-02] MEDS: ondansetron HCL 4 MG/2 ML VIAL IVPUSH (16:30)
[2022-04-02 16:31] LABS: Influenza A PCR NEGATIVE (Negative); Influenza B PCR NEGATIVE (Negative); Resp Syncy Virus RNA Qual PCR NEGATIVE (Negative); SARS COV2 PCR INHOUSE NEGATIVE (Negative)
--- NOTE | 2022-04-02 16:47 | PC.NURSE ---
pt a&ox3, vss, 20G IV placed left AC, medicated per provider order, ivf running.
== END 2022-04-02 17:41 | disposition home or self-care (01) ==
PROVIDERS: Physician Assistant; Emergency Provider Student in an Organized Health Care Education/Training Program
DX: R51.9 Headache, unspecified (principal); R19.7 Diarrhea, unspecified; R06.02 Shortness of breath; Z20.822 Contact with and (suspected) exposure to COVID-19; Z79.899 Other long term (current) drug therapy
CPT/HCPCS: 0241U; 36415; 70450; 71045; 80048; 80076; 83735; 85025; 85610; 85730; 96361; 96374; 99283; 99284; J2405

== ENCOUNTER 2022-04-03 13:25 | Emergency (ER) | payer OTHER, MEDICAID, SELFPAY ==
[2022-04-03 13:26] VITALS: BP 104/67; PULSE 102; RESP 18; TEMP 36.7; O2SAT 95; BMI 29.4
--- NOTE | 2022-04-03 13:36 | ED.GENADULT ---
HPI - General Adult General Chief complaint: Dental/Oral Stated complaint: mouth sour Time Seen by Provider: 04/03/22 13:36 Source: patient Mode of arrival: ambulatory Limitations: no limitations History of Present Illness HPI narrative: Patient is a 31 year old assigned male at with a history of lymphoma post bone marrow transplant earlier this month at [facility] presenting to the emergency department today with left sided mouth pain. Patient states that he got a bone marrow transplant earlier this month in [place] and was feeling OK he is continuing to have left sided mouth pain. Patient states he was told this is normal after chemotherapy but he is concerned that it is now infected. Patient states that he spoke to his oncologist thermostatic controls supervisor who called in pain medication and a numbing mouthwash. Patient denies any dizziness, lightheadedness, abdominal pain, nausea, fever, chills, blurry vision, double vision, loss of vision, chest pain, difficulty breathing, shortness of breath, back pain, night sweats, pain with urination, increased urinary frequency, increased urinary urgency, blood in his urine or stool, syncope or a near syncopal episode, recent trauma or falls, bowel incontinence, bladder incontinence, bowel retention, bladder retention, or any other complaints at this time. Onset (ago): day(s) Location: mouth Severity: mild Severity scale (1-10): 2 Quality: aching and dull Pain Consistency: constant Relieving factors: none Exacerbating factors: none Associated symptoms: denies other symptoms Treatments prior to arrival: none Related Data Home Medications Medication Instructions Recorded Confirmed acyclovir 400 mg tablet 400 mg PO TID 03/30/22 03/31/22 atovaquone 750 mg/5 mL oral 750 mg PO Q12H 03/30/22 03/31/22 suspension benzocaine 15 mg-menthol 3.6 mg 1 saul mucous membrane Q2-4H PRN 03/30/22 03/31/22 lozenges Sore Throat cholecalciferol (vitamin D3) 50 50 mcg PO DAILY 03/30/22 03/31/22 mcg (2,000 unit) tablet diphenhydramine HCl 25 mg tablet 25 mg PO BEDTIME PRN Itching 03/30/22 03/31/22 esomeprazole magnesium 20 mg 20 mg PO DAILY 03/30/22 03/31/22 tablet,delayed release folic acid 1 mg tablet 1 mg PO DAILY 03/30/22 03/31/22 hydroxyzine HCl 25 mg tablet 25 mg PO QID PRN Itching 03/30/22 03/31/22 loperamide 2 mg tablet 2 mg PO QID PRN Diarrhea 03/30/22 03/31/22 magnesium oxide 400 mg PO BID 03/30/22 03/31/22 therapeutic multivitamin 1 tab PO DAILY 03/30/22 03/31/22 Previous Rx's Medication Instructions Recorded ondansetron 8 mg disintegrating 8 mg PO Q8H PRN Nausea #30 tabs 12/01/21 tablet Magic Mouthwash 10 ml PO QID #240 mL 04/03/22 Diphen/Lido/Antacid 1:1:1 240 mL suspension oxycodone 5 mg tablet 5 mg PO Q6H PRN Breakthrough Pain, 04/03/22 Moderate #30 tabs Allergies Allergy/AdvReac Type Severity Reaction Status Date / Time levofloxacin [From Levaquin] Allergy Rash Verified 03/31/22 15:15 Review of Systems Constitutional: Constitutional: Reports no additional constitutional complaints, Denies chills, Denies fever(s) and Denies night sweats Eyes: Eyes: Reports no additional eye complaints, Denies blurry vision, Denies change in vision, Denies diplopia, Denies eye discharge, Denies loss of vision and Denies eye pain ENT: Denies dizziness, Reports mouth lesions and Reports mouth pain Cardiovascular: Cardiovascular: Reports no additional cardiovascular complaints, Denies chest pain, Denies lightheadedness, Denies Loss of Consciousness and Denies dyspnea Respiratory: Respiratory: Reports no additional respiratory complaints and Denies dyspnea Gastrointestinal: Gastrointestinal: Reports no additional gastrointestinal complaints, Denies abdominal pain, Denies melena, Denies hematochezia, Denies change in bowel habits and Denies change in stool character Genitourinary: Genitourinary: Reports no additional male genitourinary complaints, Denies hematuria, Denies oliguria, Denies difficulty urinating, Denies dysuria, Denies urinary frequency, Denies urinary hesitancy, Denies urinary incontinence and Denies urinary urgency Musculoskeletal: Musculoskeletal: Reports no additional musculoskeletal complaints, Denies numbness and Denies tingling Neurologic: Denies dizziness, Denies loss of vision, Denies numbness and Denies tingling Psychiatric: Psychiatric: Reports no additional psychiatric complaints Endocrine: Endocrine: Reports no additional endocrine complaints Hematologic/Lymphatic: Hematologic/Lymphatic: Reports no additional hematologic/lymphatic complaints Allergic/Immunologic: Allergic/Immunologic: Reports no additional allergic/immunologic complaints [facility] Past Medical History Attestation statement: The following information was validated with the patient. Source: old records reviewed and nursing notes reviewed Medical History Hodgkin lymphoma Hx of fracture of clavicle Surgical History History of bronchoscopy History of undescended testicle S/P lymph node biopsy Family History Family History Father Heart disease HTN (hypertension) Paternal Aunt Heart disease HTN (hypertension) Maternal Grandfather Diabetes Pancreatic cancer Paternal Uncle Diabetes Family/Other Asthma Social History Social History Household Members: Significant Other and Children Housing: House Alcohol intake: former Patient Tobacco Use Status: Never used Tobacco Tobacco use type: Smokeless Tobacco Smoked in Last 30 Days: No Substance Use Type: Marijuana Advance Directives: Yes Advance Directives on File: Yes Advance Directives Date on File: 06/08/21 service: No Current occupational status: unemployed Physical Exam ED Vital Signs: Vital Signs - 24 hr 04/03/22 13:26 04/03/22 14:14 Temperature 98.1 F 98.0 F Pulse Rate 102 H 100 Respiratory Rate 18 18 Blood Pressure 104/67 104/70 Pulse Oximetry 95 99 Oxygen Delivery Method Room Air Room Air BMI result Body Mass Index 29.4 Const General: cooperative, no acute distress, alert and awake Nutritional Appearance: well nourished Orientation/consciousness: patient oriented x3 Limitations: no limitations HENMT Head: Yes normal to inspection and Yes atraumatic Ears: hearing grossly normal bilaterally and external ears normal General nose exam: Normal external nose present, no nasal discharge noted and no epistaxis Face and sinus: Yes normal facial exam, No abrasion and No laceration Mouth: Normal oral and palatal mucosa present, no drooling and no muffled voice Teeth image: 1. Mild erythema to this area of upper gums, no active bleeding, no sign of infection Eyes General: appearance normal, both eyes and all related structures Periorbital: periorbital findings normal Eyelids: Yes eyelids normal Conjunctivae: conjunctivae normal Pupils: Equal, round and reactive pupils present EOM: EOMs intact bilaterally Neck Neck: Yes normal visual inspection, Yes full ROM and Yes no lymphadenopathy Chest Chest palpation & inspection: normal inspection of the chest Resp Effort & Inspection: normal respiratory effort and able to speak in complete sentences Auscultation: clear to auscultation bilaterally Cardio Rate: regular rate Rhythm: regular rhythm GI Inspection: Yes normal to inspection Neuro General: patient oriented x3 and moves all extremities Cranial nerves: Yes Equal, round and reactive pupils present Cognition (Neuro): normal cognition Motor exam (neuro): 5/5 motor strength present throughout Sensory Exam: Normal double simultaneous stimulation for sensation Coordination: [id number] test normal Extrem General: Yes normal to inspection, Yes full ROM and Yes capillary refill normal Psych Appearance: grossly normal Mental Status: mental status grossly normal Affect: normal affect Attitude: cooperative Thought process: Normal thought process present Thought content: Normal thought content present Insight: Good insight present (Psych) Medical Decision Making Medical Decision Making MDM Narrative: Patient is a 31 year old assigned male at with a history of lymphoma post bone marrow transplant presenting to the emergency department today with left sided mouth pain. Patient's physical exam showed an area of mild erythema to the left upper gum as documented in the physical examination. Patient's presentation is most consistent with an unwanted effect of chemotherapy. My treatment recommendations are the same as the oncologist with pain medication and magic mouthwash. I explained my physical exam findings to the patient. I answered all questions asked by the patient. I stressed the importance of the patient taking his medication as prescribed. I stressed the importance of the patient following up with his primary care provider and his oncologist. I stressed the importance of the patient returning to the emergency department immediately if his symptoms were to worsen or if he were to develop any dizziness, shortness of breath, difficulty breathing, chest pain, blurry vision, loss of vision, nausea, vomiting, abdominal pain, fever, chills, back pain, or any other complaints. Patient verbalized agreement and understanding with this treatment plan and discharge. Discharge Plan Discharge Clinical Impression: Gum lesion Patient Disposition: Home, Self-Care Additional Instructions: Follow up with your primary care provider and your oncologist. Return to the emergency department immediately if your symptoms worsen or if you develop any dizziness, shortness of breath, difficulty breathing, chest pain, blurry vision, loss of vision, nausea, vomiting, abdominal pain, fever, chills, back pain, or any other complaints. Prescriptions: No Action ondansetron 8 mg Tablet,Disintegrating 8 mg PO Q8H PRN (Reason: Nausea) Qty: 30 3RF therapeutic multivitamin Tablet 1 tab PO DAILY acyclovir 400 mg Tablet 400 mg PO TID folic acid 1 mg Tablet 1 mg PO DAILY atovaquone 750 mg/5 mL Suspension 750 mg PO Q12H Rx Instructions: must administer with food, preferably a high-fat meal cholecalciferol (vitamin D3) 50 mcg (2,000 unit) Tablet 50 mcg PO DAILY magnesium oxide 400 mg magnesium Tablet 400 mg PO BID loperamide 2 mg Tablet 2 mg PO QID PRN (Reason: Diarrhea) diphenhydramine HCl 25 mg Tablet 25 mg PO BEDTIME PRN (Reason: Itching) hydroxyzine HCl 25 mg Tablet 25 mg PO QID PRN (Reason: Itching) esomeprazole magnesium 20 mg Tablet,Delayed Release (Dr/Ec) 20 mg PO DAILY benzocaine-menthol 15-3.6 mg Lozenge 1 saul MUCOUS MEMBRANE Q2-4H PRN (Reason: Sore Throat) oxycodone 5 mg Tablet 5 mg PO Q6H PRN (Reason: Breakthrough Pain, Moderate) Qty: 30 0RF Rx Instructions: Partial Fill upon patient request. Magic Mouthwash Diphen/Lido/Antacid 1:1:1 240 mL Suspension 10 ml PO QID Qty: 240 6RF Rx Instructions: Lidocaine Viscous 2 % 80mL; diphenhydramine 12.5 mg/5 mL 80mL; aluminum-mag hydrox-simeth [id number]/5mL 80mL Referrals: [facility] [Provider Group] (Call to establish and follow up with a primary care provider. If you already have a primary care provider, please follow up with them. ) [facility] [Provider Group] (Call to establish and follow up with a primary care provider. If you already have a primary care provider, please follow up with them. ) [facility] [Provider Group] (Call to establish and follow up with a primary care provider. If you already have a primary care provider, please follow up with them. ) [facility] [place] Oncology/Hematology [Provider Group] Stand Alone Forms: Work/School Release Interventions: ED Discharge Assessment Last Done: 04/03/22 14:15 Discharge Date/Time: 04/03/22 14:16 Print Language: Guatemalan
[2022-04-03 14:14] VITALS: BP 104/70; PULSE 100; RESP 18; TEMP 36.7; O2SAT 99
--- NOTE | 2022-04-03 14:14 | PC.NURSE ---
patient a/ox4 . VSS . Went over discharge instructions as ordered by provider . patient to follow up oncologist and primary care . no questions at this time .
== END 2022-04-03 14:16 | disposition home or self-care (01) ==
PROVIDERS: Emergency Provider Student in an Organized Health Care Education/Training Program
DX: K13.79 Other lesions of oral mucosa (principal); C81.90 Hodgkin lymphoma, unspecified, unspecified site; Z92.21 Personal history of antineoplastic chemotherapy; F12.90 Cannabis use, unspecified, uncomplicated
CPT/HCPCS: 99282; 99284

== ENCOUNTER 2022-04-30 08:54 | Day surgery (SDC) | payer OTHER, MEDICAID, SELFPAY ==
--- NOTE | ~2022-04-30 | IR_ITS ---
PROCEDURE: IR REMOVAL OF TUNNELED PORT CLINICAL INFORMATION: History of lymphoma fully treated. Port catheter is not needed. COMPARISON: None TECHNIQUE: Following explaining procedure, benefits of removal of left inserted port catheter, removal procedure, benefits and risk, a written consent was obtained. Patient was placed supine on fluoroscopy table and left anterior chest wall was cleaned and draped in the usual sterile manner. 1% lidocaine was injected at the puncture site. A skin incision was made at the proximal aspect of the port chamber. Blunt dissection was initially performed and the port was from underlying skin and scar. The junction of the port and the catheter were identified and held in place. The sutures were identified and removed. The catheter was then pulled slowly in its entire length. Subcutaneous skin incision was sutured with 3-0 absorbable sutures followed by skin incision with 4-0 absorbable sutures. Steri-Strips were applied at the skin site. Conscious sedation was utilized and patient monitored for 38 minutes by IR physician and IR nursing. FLUOROSCOPY TIME: 0.1 minute. DOSE AREA PRODUCT: 5 cGy-cm2 IR/IR cvc remove tunnel w prt/assistant nurse manager FINDINGS/IMPRESSION: Successful removal of left-sided Port-A-Cath without immediate complications.
[2022-04-30 09:10] LABS: MANUAL DIFF FLAG NO
[2022-04-30 09:18] LABS: Prothrombin Time 11.4 SEC (10.0-13.1)
[2022-04-30 09:20] LABS: Partial Thromboplastin Time 30.2 SEC (26.0-36.4)
[2022-04-30 09:21] LABS: Basophils Percent Auto 0.6 % (0-2); Eosinophils Absolute Auto 0.3 X10*3/uL (0.0-0.4); Eosinophils Percent Auto 3.5 % (0-4); Hematocrit 37.7 % (42.0-52.0); Hemoglobin 13.1 g/dl (14.0-18.0); Imm Gran Abs Auto 0.02 X10*3/uL (0.00-0.03); Imm Gran Pct Auto 0.3 % (0.0-0.4); Lymphocytes Absolute Auto 2.3 X10*3/uL (1.2-4.9); Lymphocytes Percent Auto 32.1 % (20-40); Mean Corpuscular HGB Conc 34.7 g/dl (31.0-36.0); Mean Corpuscular Hemoglobin 30.9 pg (27.0-33.0); Mean Corpuscular Volume 88.9 fL (80.0-98.0); Mean Platelet Volume 9.4 fL (9.4-12.4); Monocytes Absolute Auto 0.7 X10*3/uL (0.1-1.2); Neutrophils Absolute Auto 3.9 x10*3/uL (2.0-8.3); Neutrophils Percent Auto 53.5 % (45-73); Platelet Count 179 X10*3/uL (160-400); Red Blood Count 4.24 X10*6/uL (4.60-5.80); Red Cell Distribution Width 14.6 % (11.0-16.0); White Blood Count 7.2 X10*3/uL (4.8-10.8)
[2022-04-30 09:24] VITALS: BMI 29.9
[2022-04-30 09:25] LABS: Anion Gap 13 (12-20); Blood Urea Nitrogen 10 mg/dL (9-16); Carbon Dioxide 25 mmol/L (22-29); Chloride 104 mmol/L (96-108); Creatinine Clr Calc Pharmacy 156.4; Estimated Glomerular Filt Rate > 60; Potassium 4.2 mmol/L (3.3-5.1); Sodium 138 mmol/L (135-145)
[2022-04-30] MEDS: Lidocaine HCl 1 % MPF 30 ML VIAL SUBCUT (11:08)
[2022-04-30 12:05] VITALS: BP 108/69; PULSE 76; RESP 11; TEMP 36.8; O2SAT 96
[2022-04-30 12:20] VITALS: BP 102/66; PULSE 71; RESP 12; O2SAT 96
[2022-04-30 12:35] VITALS: BP 106/69; PULSE 72; RESP 12; O2SAT 96
[2022-04-30 12:50] VITALS: BP 103/60; PULSE 90; RESP 12; TEMP 36.8; O2SAT 96
== END 2022-04-30 12:54 | disposition home or self-care (01) ==
PROVIDERS: Visit Provider Radiology Diagnostic Radiology
PROC: (CPT 36590; principal; 2022-04-30 10:30)
DX: Z45.2 Encounter for adjustment and management of vascular access device (principal); C81.10 Nodular sclerosis Hodgkin lymphoma, unspecified site; F12.90 Cannabis use, unspecified, uncomplicated; Z79.899 Other long term (current) drug therapy; Z88.8 Allergy status to other drugs, medicaments and biological substances
CPT/HCPCS: 36415; 36590; 80051; 82565; 84520; 85025; 85610; 85730; 99152; 99153; J2250; J3010

== ENCOUNTER → 2022-05-25 13:26 | Outpatient (BNVA) | payer OTHER, MEDICAID, SELFPAY | PROVIDERS: Visit Provider Internal Medicine | DX: I21.9 Acute myocardial infarction, unspecified (principal); Z51.81 Encounter for therapeutic drug level monitoring; Z79.01 Long term (current) use of anticoagulants | CPT/HCPCS: 85610; 99202 ==

== ENCOUNTER → 2022-05-28 09:13 | Outpatient (BNVA) | payer OTHER, MEDICAID, SELFPAY | PROVIDERS: Visit Provider Internal Medicine | DX: I51.3 Intracardiac thrombosis, not elsewhere classified (principal); Z79.01 Long term (current) use of anticoagulants; Z51.81 Encounter for therapeutic drug level monitoring | CPT/HCPCS: 85610; 99211 ==

== ENCOUNTER → 2022-06-01 09:39 | Outpatient (BNVA) | payer OTHER, MEDICAID, SELFPAY | PROVIDERS: Visit Provider Internal Medicine | DX: I51.3 Intracardiac thrombosis, not elsewhere classified (principal); Z79.01 Long term (current) use of anticoagulants; Z51.81 Encounter for therapeutic drug level monitoring | CPT/HCPCS: 85610; 99211 ==

== ENCOUNTER → 2022-06-04 08:42 | Outpatient (BNVA) | payer OTHER, MEDICAID, SELFPAY | PROVIDERS: Visit Provider Internal Medicine | DX: I51.3 Intracardiac thrombosis, not elsewhere classified (principal); Z79.01 Long term (current) use of anticoagulants; Z51.81 Encounter for therapeutic drug level monitoring | CPT/HCPCS: 85610; 99212 ==

== ENCOUNTER → 2022-06-09 10:09 | Outpatient (BNVA) | payer OTHER, MEDICAID, SELFPAY | PROVIDERS: Visit Provider Internal Medicine | DX: I51.3 Intracardiac thrombosis, not elsewhere classified (principal); Z51.81 Encounter for therapeutic drug level monitoring; Z79.01 Long term (current) use of anticoagulants | CPT/HCPCS: 85610; 99211 ==

== ENCOUNTER → 2022-06-14 10:31 | Outpatient (BNVA) | payer OTHER, MEDICAID, SELFPAY | PROVIDERS: PCP Internal Medicine; Visit Provider Internal Medicine | DX: I51.3 Intracardiac thrombosis, not elsewhere classified (principal); Z51.81 Encounter for therapeutic drug level monitoring; Z79.01 Long term (current) use of anticoagulants | CPT/HCPCS: 85610; 99211 ==

== ENCOUNTER → 2022-06-21 09:08 | Outpatient (BNVA) | payer OTHER, MEDICAID, SELFPAY | PROVIDERS: PCP Internal Medicine; Visit Provider Internal Medicine | DX: I51.3 Intracardiac thrombosis, not elsewhere classified (principal); Z51.81 Encounter for therapeutic drug level monitoring; Z79.01 Long term (current) use of anticoagulants | CPT/HCPCS: 85610; 99212 ==

== ENCOUNTER → 2022-06-29 09:07 | Outpatient (BNVA) | payer OTHER, MEDICAID, SELFPAY | PROVIDERS: PCP Internal Medicine; Visit Provider Internal Medicine | DX: I51.3 Intracardiac thrombosis, not elsewhere classified (principal); Z51.81 Encounter for therapeutic drug level monitoring; Z79.01 Long term (current) use of anticoagulants | CPT/HCPCS: 85610; 99211 ==

== ENCOUNTER → 2022-07-02 09:58 | Outpatient (REF) | payer OTHER, MEDICAID, SELFPAY ==
--- NOTE | 2022-07-02 10:01 | CA_ITS ---
Transthoracic Echocardiogram Patient (Last, First, Middle): Ridge Villalobos, Gender: Male Date of : 1990 Age: 31 Procedure Date: 07/02/2022 Procedure Type: Transthoracic Echocardiogram Location: OP Height: 175.26 cm Weight: 92.99 kg BSA: 2.09 m2 Heart Rate: 56 bpm BP: 102 / 58 mmHg Cancer Genetic Counselor: ZEESHAN Referring MD: Alexandria Wallis MD Mortgage Branch Manager: Ignacio Montana MD Symptoms: h/o rt atrial clot, now on AC Study Quality: Adequate ECG Rhythm: Bradycardia Conclusions: - Normal study with no obvious evidence of right atrial thrombus, if clinical concern it is high consider ARABELLA Findings Left Ventricle Normal left ventricular size, thickness, and systolic function. The visually estimated ejection fraction is between 60-65%. Spectral Doppler is indicative of a normal filling pattern. Peak GLS is -18.9%, within normal limits. Right Ventricle Normal right ventricular cavity size and systolic function. Atria Both atria are normal in size. There is no evidence of thrombus or mass in the right atrium. Aortic Valve Normal aortic valve structure and function. There is no aortic valve stenosis. There is no aortic valve regurgitation. Mitral Valve Normal mitral valve structure and function. There is no mitral valve regurgitation. There is no mitral valve stenosis. Pulmonic Valve The pulmonic valve is likely normal. Tricuspid Valve Normal tricuspid valve structure. There is trace tricuspid valve regurgitation. The right ventricular systolic pressure is normal. The right ventricular systolic pressure is 19 mmHg. Normal right atrial pressure. There is no evidence of pulmonary hypertension. Great Vessels All visible segments of the aorta are normal in size. The pulmonary artery was not well visualized. Venous The inferior vena cava is normal in size and collapses greater than 50% with inspiration. Pericardium/Pleural There is no evidence of pericardial effusion. Prior Study Comparison No significant change compared to prior study dated: 11/12/2021. Recommendations, Care & Conclusions Consider a ARABELLA if clinically appropriate. Measurements 2D Linear Measurements IVSd: 1.37 0.6-0.9/0.6-1.0 cm LVIDd: 4.48 3.9-5.3/4.2-5.9 cm LVIDd Index: 2.14 2.4-3.2/2.2-3.1 cm/m2 LVIDs: 3.34 2.0-3.6 cm LVPWd: 0.89 0.7-1.1 cm LA Diam: 3.50 2.7-3.8/3.0-4.0 cm LAIDs Index: 1.67 1.5-2.3 cm/m2 LV Mass: 225.06 67-162/88-224 g LV Mass Index: 107.68 43-95/49-115 g/m2 LVOT Diam: 2.40 3.0+(-)1.3 cm 2D Systolic Function EF 4C: 63.90 >55% EF 2C: 58.80 >55% EF BiP: 62.00 >55% Mitral Valve MV Pk E: 0.61 MV PK A: 0.40 MV Decel Time: 222.00 E/A: 1.50 E'Lateral: 13.40 E'Medial: 8.27 E/E' Med: 7.40 E/E' Lat: 4.50 PHT: 65.00 MVA PHT: 3.38 Decel Aurora: 2.74 Aortic Valve AoV Pk Jorge: 1.08 AoV Pk Grad: 5.00 ALEXANDER: 4.52 LVOT LVOT Pk Jorge: 1.13 LVOT Mn Jorge: 0.78 LVOT VTI: 0.25 LVOT Pk Grad: 5.00 LVOT Mn Grad: 3.00 LVOT Diam: 2.40 LVOT Area: 4.52 Diastolic Function MV Pk E: 0.61 MV Pk A: 0.40 E/A: 1.50 E'Medial: 8.27 E/E' Med: 7.40 E' Laterial: 13.40 E/E' Lat: 4.50 Right Ventricle TAPSE (mm): 16.80 TVS' Jorge: 8.81 Tricuspid Valve TR Pk Jorge: 1.99 TR Pk Grad: 16.00 RA Press: 3.00 RVSP: 19.00 Great Vessels Aorta Sinus of Valsalva: 3.60 2.0-3.5 cm Ao Asc: 2.90 2.1-3.4 cm Ao Arch: 2.60 Ao Desc: 2.10 Pulmonary Veins Pulm Vein S/D 0.70 Pulmonary Valve PV Pk Jorge: 0.79 Peak PV Grad: 3.00 Updated in Other Vendor System with Status of Final Ignacio Montana MD electronically signed on 07/03/2022 1:21:31 PM with status of Final
== END ==
LOC: HO.CARD 09:58
PROVIDERS: Visit Provider Internal Medicine
DX: C81.90 Hodgkin lymphoma, unspecified, unspecified site (principal); I51.3 Intracardiac thrombosis, not elsewhere classified
CPT/HCPCS: 93306; 93356

== ENCOUNTER → 2022-07-06 09:13 | Outpatient (BNVA) | payer OTHER, MEDICAID, SELFPAY | PROVIDERS: PCP Internal Medicine; Visit Provider Internal Medicine | DX: I51.3 Intracardiac thrombosis, not elsewhere classified (principal); Z51.81 Encounter for therapeutic drug level monitoring; Z79.01 Long term (current) use of anticoagulants | CPT/HCPCS: 85610; 99211 ==

== ENCOUNTER 2023-06-03 03:58 | Emergency (ER) | payer MEDICAID, SELFPAY ==
--- NOTE | ~2023-06-03 | CT_ITS ---
EXAMINATION: CT CHEST WITH CONTRAST CLINICAL INFORMATION: New lung nodules. History of Hodgkin's. COMPARISON: None available. TECHNIQUE: Multidetector volumetric CT imaging of the chest was obtained after the administration of 50 mL of Omnipaque 350 intravenous contrast without immediate adverse reactions. Axial MIP volume rendering provided. Sagittal and coronal reformatted images were obtained. This CT examination was performed using dose optimization techniques as appropriate, variously including the following: *Automated exposure control *Adjustment of mA and/or kV according to patient size (this includes techniques or standardized protocols for targeted exams where dose is matched to indication/reason for exam; i.e. extremities or head) *Use of iterative reconstruction technique DLP: 285 mGy-cm FINDINGS: CHEF PASSENGER VESSEL: Unremarkable. LUNGS: There is a 1.5 cm nodule and a 4 mm nodule left lung base axial image 363/5 small tumor primary nodule and a 6 oh nodule right lung base axial image image 369/6 and image 359/6, slightly larger 1 cm nodule right lower lobe axial image 341/6, 1.6 cm nodule right lower lobe right parahilar region axial image 245/6, 1.1 cm nodule right parahilar region right middle lobe axial image 259/6. There are several additional nodules seen in the right upper lobe largest measuring 1 cm axial image 156 4/5. A 1 cm nodule left upper lobe and 9 mm nodule superior segment left lower lobe. Axial image 158/6. There are several additional nodules present visualized. MEDIASTINUM: Thyroid lobes are symmetric and normal. The central trachea and bronchi are widely patent. There are low-density mediastinal lymph nodes. A 1.9 cm right para-aortic lymph node axial image 30/9 bilateral hilar small lymph nodes are visualized. PLEURA: There is no pleural effusion. No pleural mass or thickening. AXILLA: No lymphadenopathy. UPPER ABDOMEN: Liver, spleen, pancreas appears unremarkable. The adrenal glands are unremarkable. The gallbladder is contracted with mild wall thickening and pericholecystic fluid collection. OSSEOUS STRUCTURES: No aggressive lytic or sclerotic process seen. CT/CT chest w IV con IMPRESSION: Multiple bilateral pulmonary nodules of various is most likely metastatic. Other etiologies inflammatory or infectious etiology. Recommend further evaluation with whole-body PET imaging OR ultrasound of the scrotum to exclude a primary lesion Fleischner guidelines were followed.
--- NOTE | ~2023-06-03 | US_ITS ---
EXAMINATION: US ABDOMEN LIMITED CLINICAL INFORMATION: Right upper quadrant pain.. COMPARISON: CT abdomen/pelvis 06/03/2023 TECHNIQUE: Real-time imaging of the right upper quadrant abdominal viscera. FINDINGS: PANCREAS: Tail obscured. LIVER: The liver is normal in size. The liver contour is normal. There is diffuse increased liver parenchymal echogenicity, consistent with hepatic steatosis. No focal hepatic lesion. There is no intrahepatic biliary duct dilatation seen. GALLBLADDER: The gallbladder is physiologically distended with mild gallbladder wall edema. Negative sonographic Mcgill's sign. COMMON BILE DUCT: Normal in caliber measuring 0.2 cm in diameter. RIGHT KIDNEY: No hydronephrosis. No renal calculi or focal parenchymal lesions. The kidney measures 12.6 cm in maximum dimension. FREE FLUID: None. US/US abdomen limited IMPRESSION: Gallbladder wall edema. Advise clinical correlation. Mild hepatic steatosis.
--- NOTE | ~2023-06-03 | CT_ITS ---
EXAMINATION: CT ABDOMEN AND PELVIS WITH CONTRAST CLINICAL INFORMATION: Epigastric pain. COMPARISON: None available. TECHNIQUE: Multidetector volumetric images were obtained from the superior aspect of the liver through the pubic symphysis following administration 85 mL of Omnipaque 350 intravenous contrast. Sagittal and coronal reformatted images were obtained on the technologist's workstation. Oral contrast: No This CT examination was performed using dose optimization techniques as appropriate, variously including the following: *Automated exposure control *Adjustment of mA and/or kV according to patient size (this includes techniques or standardized protocols for targeted exams where dose is matched to indication/reason for exam; i.e. extremities or head) *Use of iterative reconstruction technique DLP: 502 mGy-cm FINDINGS: LUNG BASES: There is a 1.5 cm nodule at the left lung base. Multiple smaller nodules at the lung bases measuring up to 8 mm on the right. LIVER, GALLBLADDER, AND BILIARY TREE: The liver is normal in size, shape, and attenuation. No focal hepatic lesion or biliary ductal dilatation is present. There appears to be gallbladder wall thickening. PANCREAS: Unremarkable. SPLEEN: Unremarkable. ADRENAL GLANDS: Unremarkable. KIDNEYS AND URETERS: The kidneys are normal in size, shape, and attenuation. No hydronephrosis, hydroureter, or calculi seen. No perinephric stranding. BLADDER: Unremarkable. GASTROINTESTINAL TRACT: The small and large bowel are unremarkable. A small tubular structure along the cecum suggests a normal appendix. ABDOMINAL WALL: No significant hernia is appreciated. LYMPH NODES: There are small retroperitoneal lymph nodes measuring up to 1.2 cm. VASCULAR: Unremarkable. PELVIC VISCERA: Unremarkable. OSSEOUS STRUCTURES: There is mild diffuse lumbar disc degenerative change. CT/CT abdomen pelvis w IV con IMPRESSION: 1. There appears to be gallbladder wall thickening. This is nonspecific. 2. Multiple pulmonary nodules at the lung bases measuring up to 1.5 cm at the left lung base. 3. Small retroperitoneal lymph nodes measuring up to 1.2 cm. 4. No other significant abnormality seen. Fleischner guidelines were followed.
[2023-06-03 04:12] VITALS: BP 116/77; PULSE 58; RESP 18; TEMP 36.4; O2SAT 98; BMI 27.3
[2023-06-03 04:40] LABS: MANUAL DIFF FLAG NO
[2023-06-03 04:41] LABS: Basophils Percent Auto 0.3 % (0-2); Eosinophils Absolute Auto 0.2 X10*3/uL (0.0-0.4); Hematocrit 35.1 % (42.0-52.0); Hemoglobin 12.4 g/dl (14.0-18.0); Imm Gran Abs Auto 0.04 X10*3/uL (0.00-0.03); Imm Gran Pct Auto 0.4 % (0.0-0.4); Lymphocytes Absolute Auto 1.3 X10*3/uL (1.2-4.9); Lymphocytes Percent Auto 12.9 % (20-40); Mean Corpuscular HGB Conc 35.3 g/dl (31.0-36.0); Mean Corpuscular Hemoglobin 32.3 pg (27.0-33.0); Mean Corpuscular Volume 91.4 fL (80.0-98.0); Mean Platelet Volume 9.9 fL (9.4-12.4); Monocytes Absolute Auto 0.8 X10*3/uL (0.1-1.2); Monocytes Percent Auto 7.3 % (2-11); Neutrophils Absolute Auto 7.9 x10*3/uL (2.0-8.3); Neutrophils Percent Auto 77.1 % (45-73); Platelet Count 135 X10*3/uL (160-400); Red Blood Count 3.84 X10*6/uL (4.60-5.80); Red Cell Distribution Width 11.8 % (11.0-16.0); White Blood Count 10.2 X10*3/uL (4.8-10.8)
--- NOTE | 2023-06-03 04:50 | ECG_ITS ---
Test Reason : ABD PAIN Blood Pressure : / mmHG Vent. Rate : 057 BPM Atrial Rate : 057 BPM P-R Int : 190 ms QRS Dur : 082 ms QT Int : 424 ms P-R-T Axes : 062 055 070 degrees QTc Int : 412 ms Sinus bradycardia Otherwise normal ECG When compared with ECG of 03-DEC-2021 14:40, No significant change was found Referred By: Chitra George Electronically Signed By:DORIE NEWMAN MD
--- NOTE | 2023-06-03 04:52 | ED.ABDPAIN ---
HPI - Abdominal Pain General Chief Complaint: Abdominal Pain Stated Complaint: abdominal pain Time Seen by Provider: 06/03/23 04:44 Source: patient Mode of arrival: ambulatory Limitations: no limitations History of Present Illness HPI narrative: Patient comes to the emergency room complaining of right upper quadrant pain and epigastric pain for about 4 days. Patient states the pain is constant, radiating towards the back. Patient denies any diarrhea. Patient has been vomiting and states that he has been trying to maintain himself hydrated with soups and fluids. Patient denies fever chills, no URI or UTI symptoms. Related Data Home Medications Medication Instructions Recorded Confirmed acyclovir 400 mg tablet 400 mg PO TID 03/30/22 11/09/22 cholecalciferol (vitamin D3) 50 50 mcg PO DAILY 03/30/22 11/09/22 mcg (2,000 unit) tablet folic acid 1 mg tablet 1 mg PO DAILY 03/30/22 08/16/22 magnesium oxide 400 mg PO DAILY 05/28/22 08/16/22 sulfamethoxazole 400 1 tab PO DAILY 05/28/22 08/16/22 mg-trimethoprim 80 mg tablet acetaminophen 500 mg tablet 500 mg PO Q6H PRN Pain (Scale 06/04/22 11/09/22 Score 4-6) chlorhexidine gluconate 0.12 % 15 ml buccal DAILY 06/04/22 08/16/22 mouthwash multivitamin (Daily-Tong tablet) 1 tab PO DAILY 06/04/22 08/16/22 ondansetron 8 mg disintegrating 8 mg PO Q8H 06/04/22 08/16/22 tablet oxycodone 5 mg tablet 5 mg PO Q6H PRN Pain (Scale Score 06/04/22 08/16/22 4-6) multivitamin with folic acid 400 1 tab PO DAILY 07/06/22 08/16/22 mcg tablet (Daily-Tong (with folic acid)) Previous Rx's Medication Instructions Recorded ondansetron 8 mg disintegrating 8 mg PO Q8H PRN Nausea #30 tabs 12/01/21 tablet warfarin 2.5 mg tablet 5 mg PO DAILY #60 tabs 08/14/22 azithromycin 500 mg tablet 500 mg PO DAILY #7 tabs 11/16/22 Allergies Allergy/AdvReac Type Severity Reaction Status Date / Time levofloxacin [From Levaquin] Allergy Rash Verified 06/03/23 04:18 Review of Systems Review of Systems Constitutional : No Weight loss, No Fever, No Chills, No Night Sweats, No Fatigue, No Malaise ENT/Mouth : No Hearing loss, No Ear Pain, No Nasal Congestion, No Sinus Pain, No Hoarseness, No sore throat, No Rhinorrhea, No Swallowing Difficulty Eyes: No Eye Pain, No Swelling, No Redness, No Foreign Body, No Discharge, No Vision Changes Cardiovascular : No Chest Pain, No SOB, No Dyspnea on Exertion, No Orthopnea, No Edema, No Palpitations Respiratory : No Cough, No Sputum, No Wheezing, No Smoke Exposure, No Dyspnea Gastrointestinal : Complaining of nausea vomiting no diarrhea, complaining of constipation, epigastric and right upper quadrant pain constantly present radiating towards the back. Genitourinary : no irregular bleeding, No Dysuria, No Urinary Frequency, No Hematuria, No Urinary Incontinence, No Urgency, No Flank Pain, No Urinary Flow Changes, No Hesitancy Musculoskeletal : No joint pain, No Myalgias, No Joint Swelling Skin : No Skin Lesions, No rash Neuro : No Weakness, No Numbness, No Paresthesias, No Loss of Consciousness, No Dizziness, No Headache Psych : No Anxiety/Panic, No Depression, No SI/HI/AH/VH, No Social Issues, Heme/Lymph: No Bruising, No Bleeding,No Lymphadenopathy Endocrine : No Polyuria, No Polydipsia, No Temperature Intolerance [facility] Past Medical History Medical History Hodgkin lymphoma Hx of fracture of clavicle Surgical History History of bronchoscopy S/P lymph node biopsy History of undescended testicle Family History Family History Father Heart disease HTN (hypertension) Paternal Aunt Heart disease HTN (hypertension) Maternal Grandfather Diabetes Pancreatic cancer Paternal Uncle Diabetes Family/Other Asthma Social History Social History Household Members: Significant Other and Children Housing: House Housing Other:: owns house with significant Alcohol intake: former Patient Tobacco Use Status: Former Tobacco user Tobacco use type: Smokeless Tobacco Smoked in Last 30 Days: No Use of substances other than those prescribed or required for medical reasons: No Substance Use Type: Marijuana Advance Directives: Yes Advance Directives Information Provided: Yes Advance Directives on File: No Advance Directives Date on File: 06/08/21 service: No Current occupational status: unemployed 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 Oriented X3. No acute distress. Eyes: Pupils equal, round and reactive to light. ENT: Pharynx normal. Neck: Normal inspection. Neck supple. No lymph nodes noted. No crepitus CVS: Normal heart rate and rhythm. Pulses normal. Normal S1 and S2 Respiratory: No respiratory distress. Breath sounds normal. No Wheezing. No rales Abdomen: Soft and nontender. No rigidity. No distention. Negative Mcgill sign Skin: Skin warm and dry. Normal skin color. Normal skin turgor. Extremities: No lower extremity edema. No Lacerations. No Rash Neuro: Oriented X 3. No motor deficit. No sensory deficit. Moving all extremities. No slurred speech. CN 2 through 12 grossly intact Psych: calm, cooperative, normal affect Course Course Course Narrative: All of patient's labs and imaging pending Medical Decision Making Medical Decision Making MDM Narrative: -my interpretation of labs: Normal hematology, normal chemistry, alcohol level negative, LFTs normal -my interpretation of CT scan of the abdomen: No obvious SBO, gallbladder seems to be a bit thickened -radiology report shows multiple lung nodules in the base of the lungs. I discussed the CTs findings with the patient, patient states that he has never been told if he has lung nodules. We will go ahead and order a CT scan of the lungs. -patient states that next month he has an appointment pending in [place] for follow-up. Patient states that he had radiation treatment about a year ago for Hodgkin's lymphoma -COVID/flu/RSV serology pending, CT scan of chest pending. -sign-out given to my colleague Dr. Hanley Differential Diagnosis Differential Diagnoses: The differential diagnosis associated with the presentation includes Admission/Observation Consideration of admission/observation: Escalation of care including admission/observation considered (Given patient's said of symptoms and new findings, admission considered) Lab Data MDM Lab Attestation statement: I reviewed the patient's lab results. 06/03/23 04:37 06/03/23 04:37 Labs: Lab Results 06/03/23 Range/Units 04:37 WBC 10.2 (4.8-10.8) X10*3/uL RBC 3.84 L (4.60-5.80) X10*6/uL Hgb 12.4 L (14.0-18.0) g/dl Hct 35.1 L (42.0-52.0) % MCV 91.4 (80.0-98.0) fL MCH 32.3 (27.0-33.0) pg MCHC 35.3 (31.0-36.0) g/dl RDW 11.8 (11.0-16.0) % Plt Count 135 L D (160-400) X10*3/uL MPV 9.9 (9.4-12.4) fL Immature Gran % (Auto) 0.4 (0.0-0.4) % Neut % (Auto) 77.1 H (45-73) % Lymph % (Auto) 12.9 L (20-40) % [place] % (Auto) 7.3 (2-11) % Eos % (Auto) 2.0 (0-4) % Baso % (Auto) 0.3 (0-2) % Lymph # (Auto) 1.3 (1.2-4.9) X10*3/uL [place] # (Auto) 0.8 (0.1-1.2) X10*3/uL Eos # (Auto) 0.2 (0.0-0.4) X10*3/uL Baso # (Auto) 0.0 (0.0-0.2) X10*3/uL Abs Immat Gran (auto) 0.04 H (0.00-0.03) X10*3/uL Absolute Neuts (auto) 7.9 (2.0-8.3) x10*3/uL Absolute Nucleated RBC 0.000 (0.0-0.012) X10*3/uL Nucleated RBC % (auto) 0.0 (0.0-0.2) /100WBC Sodium 141 (135-145) mmol/L Potassium 3.8 (3.3-5.1) mmol/L Chloride 107 (96-108) mmol/L Carbon Dioxide 28 (22-29) mmol/L Anion Gap 10 L (12-20) BUN 16 (9-16) mg/dL Creatinine 0.74 (0.5-1.4) mg/dL Estim Creat Clear Calc 141.9 Estimated GFR > 60 Random Glucose 103 (60-115) mg/dL Calcium 8.8 D (8.4-10.2) mg/dL Total Bilirubin 0.3 (0.0-1.0) mg/dL AST 14 (5-37) U/L ALT 10 (0-40) U/L Alkaline Phosphatase 90 (39-117) U/L Total Protein 6.6 (6.5-8.0) g/dL Albumin 3.7 (3.5-5.0) g/dL Lipase 24 (8-78) U/L Ethyl Alcohol < 10 mg/dL Independent Interpretation I performed an independent interpretation of an: CT Scan Radiology Impression Discussion of test interpretation with radiology: I have reviewed the radiologist's reading. Radiologist Impression: FINDINGS: LUNG BASES: There is a 1.5 cm nodule at the left lung base. Multiple smaller nodules at the lung bases measuring up to 8 mm on the right. LIVER, GALLBLADDER, AND BILIARY TREE: The liver is normal in size, shape, and attenuation. No focal hepatic lesion or biliary ductal dilatation is present. There appears to be gallbladder wall thickening. PANCREAS: Unremarkable. SPLEEN: Unremarkable. ADRENAL GLANDS: Unremarkable. KIDNEYS AND URETERS: The kidneys are normal in size, shape, and attenuation. No hydronephrosis, hydroureter, or calculi seen. No perinephric stranding. BLADDER: Unremarkable. GASTROINTESTINAL TRACT: The small and large bowel are unremarkable. A small tubular structure along the cecum suggests a normal appendix. ABDOMINAL WALL: No significant hernia is appreciated. LYMPH NODES: There are small retroperitoneal lymph nodes measuring up to 1.2 cm. VASCULAR: Unremarkable. PELVIC VISCERA: Unremarkable. OSSEOUS STRUCTURES: There is mild diffuse lumbar disc degenerative change. CT/CT abdomen pelvis w IV con IMPRESSION: 1. There appears to be gallbladder wall thickening. This is nonspecific. 2. Multiple pulmonary nodules at the lung bases measuring up to 1.5 cm at the left lung base. 3. Small retroperitoneal lymph nodes measuring up to 1.2 cm. 4. No other significant abnormality seen. Medications Administered Discontinued Medications Generic Name Dose Route Start Last Admin Trade Name Fabiola PRN Reason Stop Dose Admin Sodium Chloride 1,000 mls @ 999 mls/hr 06/03/23 04:49 06/03/23 06:13 Ns IVCONT 06/03/23 05:49 Infused .Q1H1M ONE Infusion Iohexol 85 ml 06/03/23 05:30 06/03/23 05:31 Iohexol 350 Mg/Ml 100 Ml Infus..Btl IV 06/03/23 05:31 85 ml ONCE ONE Administration Critical Care Time Critical Care Time Critical Care Time: Yes Total Critical Care Time: 60 Attestation: I have personally provided critical care time. Time includes review of lab data, radiology results, discussion with consultants, and monitoring for potential decompensation. Intervention performed as documented. Discharge Plan Discharge Clinical Impression: Nausea & vomiting, Multiple pulmonary nodules Patient Disposition: Still a Patient Prescriptions: No Action warfarin 2.5 mg Tablet 5 mg PO DAILY Qty: 60 1RF Protocol: Dose Management Condition: Tuesday (Week One) Dose/Route: 5 mg Instruction: 2 x 2.5 mg tablets Condition: Tuesday Dose/Route: 5 mg Instruction: 2 x 2.5 mg tablets Condition: Tuesday Dose/Route: 7.5 mg Instruction: 3 x 2.5 mg tablets Condition: Tuesday Dose/Route: 5 mg Instruction: 2 x 2.5 mg tablets Condition: Dose/Route: 5 mg Instruction: 2 x 2.5 mg tablets Condition: Tuesday Dose/Route: 5 mg Instruction: 2 x 2.5 mg tablets Condition: Tuesday Dose/Route: 5 mg Instruction: 2 x 2.5 mg tablets Condition: Tuesday (Week Two) Dose/Route: 5 mg Instruction: 2 x 2.5 mg tablets Condition: Tuesday Dose/Route: 5 mg Instruction: 2 x 2.5 mg tablets Condition: Tuesday Dose/Route: 5 mg Instruction: 2 x 2.5 mg tablets Condition: Tuesday Dose/Route: 5 mg Instruction: 2 x 2.5 mg tablets Condition: Dose/Route: 5 mg Instruction: 2 x 2.5 mg tablets Condition: Tuesday Dose/Route: 5 mg Instruction: 2 x 2.5 mg tablets Condition: Tuesday Dose/Route: 5 mg Instruction: 2 x 2.5 mg tablets Protocol Text: Adjustment Start Date: Tuesday07/06/22 INR Value: 1.9 INR Date: 07/06/22 Recheck Date: 07/12/22 Additional Instructions: INCREASE DOSE TODAY, NO GREENS TODAY OR TOMORROW, EAT ORANGE OR REDS TODAY ondansetron 8 mg Tablet,Disintegrating 8 mg PO Q8H PRN (Reason: Nausea) Qty: 30 3RF acyclovir 400 mg Tablet 400 mg PO TID folic acid 1 mg Tablet 1 mg PO DAILY cholecalciferol (vitamin D3) 50 mcg (2,000 unit) Tablet 50 mcg PO DAILY azithromycin 500 mg Tablet 500 mg PO DAILY Qty: 7 0RF magnesium oxide 400 mg magnesium tablet 400 mg PO DAILY sulfamethoxazole-trimethoprim 400-80 mg tablet 1 tab PO DAILY multivitamin [Daily-Tong] Tablet 1 tab PO DAILY acetaminophen 500 mg tablet 500 mg PO Q6H PRN (Reason: Pain (Scale Score 4-6)) ondansetron 8 mg tablet,disintegrating 8 mg PO Q8H oxycodone 5 mg tablet 5 mg PO Q6H PRN (Reason: Pain (Scale Score 4-6)) chlorhexidine gluconate 0.12 % mouthwash 15 ml buccal DAILY multivitamin with folic acid [Daily-Tong (with folic acid)] 400 mcg tablet 1 tab PO DAILY
[2023-06-03 04:54] LABS: Alanine Aminotransferase 10 U/L (0-40); Albumin Level 3.7 g/dL (3.5-5.0); Alkaline Phosphatase 90 U/L (39-117); Anion Gap 10 (12-20); Aspartate Amino Transferase 14 U/L (5-37); Bilirubin Total 0.3 mg/dL (0.0-1.0); Blood Urea Nitrogen 16 mg/dL (9-16); Calcium 8.8 mg/dL (8.4-10.2); Carbon Dioxide 28 mmol/L (22-29); Chloride 107 mmol/L (96-108); Creatinine Clr Calc Pharmacy 141.9; Estimated Glomerular Filt Rate > 60; Glucose Random 103 mg/dL (60-115); Lipase 24 U/L (8-78); Potassium 3.8 mmol/L (3.3-5.1); Sodium 141 mmol/L (135-145); Total Protein 6.6 g/dL (6.5-8.0)
[2023-06-03] MEDS: 0.9 % Sodium Chloride 1,000 ML 999 ML IVCONT (05:12)
--- NOTE | 2023-06-03 05:15 | PC.NURSE ---
pt from home reporting onset of upper right quadrant pain for three days with episodes of nausea and vomiting. pt reports last BM on e week ago. pt reports inability to keep PO fluids down. pt abdomen soft but tender tot ouch in the mid upper abdomen and right upper quadrant. pt noted to have hypoactive bowel sound. IV established, 20G left AC, fluids administered.
[2023-06-03 05:26] LABS: Ethanol < 10 mg/dL
[2023-06-03] MEDS: iohexoL 350 MG/ML 100 ML INFUS..BTL 85 ML IV (05:31)
[2023-06-03 06:42] VITALS: BP 99/63; PULSE 65; RESP 17; TEMP 36.7; O2SAT 98
--- NOTE | 2023-06-03 07:52 | PC.NURSE ---
PT IS A/O X 4 NO SOB/DIANA NOTED SPEAKS IN FULL SENTENCES. NO EDEMA NOTED. C/O 5/10 RUQ ABD PAIN. PT DENIES ANY N/V AND REFUSED THE ZOFRAN 4MG IV AT THIS TIME. AWARE. WILL CONTINUE TO MONITOR.
[2023-06-03 08:02] VITALS: BP 105/59; PULSE 60; RESP 18; TEMP 36.7; O2SAT 97
[2023-06-03 08:04] LABS: Appearance Urine Clear; Color Urine Yellow; Glucose Urine UA Negative (Negative); Leukocyte Esterase Urine Negative (Negative); Nitrite Urine Negative (Negative); Specific Gravity - Urine >= 1.030 (1.005-1.025); Urine Blood Negative (Negative); Urine Ketones Negative (Negative); Urine Protein Negative (Neg-Trace)
[2023-06-03] MEDS: iohexoL 350 MG/ML 100 ML INFUS..BTL IV (08:32)
[2023-06-03 08:52] LABS: Influenza A PCR NEGATIVE (Negative); Influenza B PCR NEGATIVE (Negative); Resp Syncy Virus RNA Qual PCR NEGATIVE (Negative); SARS COV2 PCR INHOUSE NEGATIVE (Negative)
[2023-06-03 09:56] VITALS: BP 93/56; PULSE 55; RESP 16; TEMP 36.7; O2SAT 99
[2023-06-03 10:45] VITALS: BP 91/56; PULSE 61; RESP 17; O2SAT 100
[2023-06-03] MEDS: 0.9 % Sodium Chloride 1,000 ML 999 ML IV (11:00)
--- NOTE | 2023-06-03 11:25 | PC.NURSE ---
BEDSIDE ULTRASOUND DONE EARLIER. PT TOLERATED WELL.
--- NOTE | 2023-06-03 11:59 | ED_ITS ---
HPI - General Adult General Chief complaint: Abdominal Pain Stated complaint: abdominal pain Time Seen by Provider: 06/03/23 04:44 Source: patient Mode of arrival: ambulatory Limitations: no limitations Related Data Home Medications Medication Instructions Recorded Confirmed acyclovir 400 mg tablet 400 mg PO TID 03/30/22 11/09/22 cholecalciferol (vitamin D3) 50 50 mcg PO DAILY 03/30/22 11/09/22 mcg (2,000 unit) tablet folic acid 1 mg tablet 1 mg PO DAILY 03/30/22 08/16/22 magnesium oxide 400 mg PO DAILY 05/28/22 08/16/22 sulfamethoxazole 400 1 tab PO DAILY 05/28/22 08/16/22 mg-trimethoprim 80 mg tablet acetaminophen 500 mg tablet 500 mg PO Q6H PRN Pain (Scale 06/04/22 11/09/22 Score 4-6) chlorhexidine gluconate 0.12 % 15 ml buccal DAILY 06/04/22 08/16/22 mouthwash multivitamin (Daily-Tong tablet) 1 tab PO DAILY 06/04/22 08/16/22 ondansetron 8 mg disintegrating 8 mg PO Q8H 06/04/22 08/16/22 tablet oxycodone 5 mg tablet 5 mg PO Q6H PRN Pain (Scale Score 06/04/22 08/16/22 4-6) multivitamin with folic acid 400 1 tab PO DAILY 07/06/22 08/16/22 mcg tablet (Daily-Tong (with folic acid)) Previous Rx's Medication Instructions Recorded ondansetron 8 mg disintegrating 8 mg PO Q8H PRN Nausea #30 tabs 12/01/21 tablet warfarin 2.5 mg tablet 5 mg PO DAILY #60 tabs 08/14/22 azithromycin 500 mg tablet 500 mg PO DAILY #7 tabs 11/16/22 omeprazole 40 mg capsule,delayed 40 mg PO DAILY #30 caps 06/03/23 release Allergies Allergy/AdvReac Type Severity Reaction Status Date / Time levofloxacin [From Levaquin] Allergy Rash Verified 06/03/23 04:18 PMFSH Past Medical History Medical History Hodgkin lymphoma Hx of fracture of clavicle Surgical History History of bronchoscopy S/P lymph node biopsy History of undescended testicle Family History Family History Father Heart disease HTN (hypertension) Paternal Aunt Heart disease HTN (hypertension) Maternal Grandfather Diabetes Pancreatic cancer Paternal Uncle Diabetes Family/Other Asthma Social History Social History Household Members: Significant Other and Children Housing: House Housing Other:: owns house with significant Alcohol intake: former Patient Tobacco Use Status: Former Tobacco user Tobacco use type: Smokeless Tobacco Smoked in Last 30 Days: No Use of substances other than those prescribed or required for medical reasons: No Substance Use Type: Marijuana Advance Directives: Yes Advance Directives Information Provided: Yes Advance Directives on File: No Advance Directives Date on File: 06/08/21 service: No Current occupational status: unemployed 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 Current occupational exposures/hazards: No Physical Exam ED Vital Signs: Vital Signs - 24 hr 06/03/23 04:12 06/03/23 06:42 06/03/23 08:02 Temperature 97.6 F 98.0 F 98.0 F Pulse Rate 58 65 60 Respiratory Rate 18 17 18 Blood Pressure 116/77 99/63 105/59 L Pulse Oximetry 98 98 97 Oxygen Delivery Method Room Air Room Air Room Air 06/03/23 09:56 06/03/23 10:45 06/03/23 12:19 Temperature 98.1 F 98.0 F Pulse Rate 55 61 56 Respiratory Rate 16 17 17 Blood Pressure 93/56 L 91/56 L 102/66 Pulse Oximetry 99 100 100 Oxygen Delivery Method Room Air Room Air BMI result Body Mass Index 27.3 Medications Administered Discontinued Medications Generic Name Dose Route Start Last Admin Trade Name Freq PRN Reason Stop Dose Admin Sodium Chloride 1,000 mls @ 999 mls/hr 06/03/23 04:49 06/03/23 06:13 Ns IVCONT 06/03/23 05:49 Infused .Q1H1M ONE Infusion Sodium Chloride 1,000 mls @ 999 mls/hr 06/03/23 11:00 06/03/23 12:07 Ns IV 06/03/23 12:00 Infused .Q1H1M CARIDAD Infusion Iohexol 85 ml 06/03/23 05:30 06/03/23 05:31 Iohexol 350 Mg/Ml 100 Ml Infus..Btl IV 06/03/23 05:31 85 ml ONCE ONE Administration Iohexol 100 ml 06/03/23 08:31 06/03/23 08:32 Iohexol 350 Mg/Ml 100 Ml Infus..Btl IV 06/03/23 08:32 65 ml ONCE ONE Administration Ondansetron HCl 4 mg 06/03/23 07:33 06/03/23 07:49 Ondansetron Hcl 4 Mg/2 Ml Vial IVPUSH 06/03/23 07:34 Not Given ONCE ONE Medical Decision Making Medical Decision Making MDM Narrative: This patient was signed out to me by the previous emergency physician pending the results of a CT of the chest. The patient has a history of Hodgkin's lymphoma. He still follows up with a local oncologist and also with [facility]. He came to the emergency room because of right upper quadrant abdominal pain. He had had a similar episode a few days ago as well. His description of the symptoms are certainly suggestive of the possibility of biliary colic. Initial imaging was a CT of the abdomen and pelvis that showed some thickening of the gallbladder wall. The patient then had a CT of the chest to evaluate for pulmonary nodules seen on the lower portions of the lungs on the CT of the abdomen and pelvis. The CT of the chest confirms pulmonary nodules in both lungs. When I saw the patient he was feeling better. His description of the symptoms was certainly suggestive of possible biliary colic. I obtained an ultrasound of the gallbladder. The ultrasound also shows some gallbladder wall thickening but no other signs of cholecystitis. Specifically no gallstones. Negative sonographic Mcgill's. Since the patient was feeling better and since his gallbladder findings are fairly nonspecific and since he has no gallstones I think he may be discharged. He has an appointment soon with his [facility] doctors to discuss his pulmonary nodules. He does not currently have a PCP. He will be started on omeprazole for possible gastritis. Lab Data 06/03/23 04:37 06/03/23 04:37 Labs: Lab Results 06/03/23 06/03/23 Range/Units 04:37 07:58 WBC 10.2 (4.8-10.8) X10*3/uL RBC 3.84 L (4.60-5.80) X10*6/uL Hgb 12.4 L (14.0-18.0) g/dl Hct 35.1 L (42.0-52.0) % MCV 91.4 (80.0-98.0) fL MCH 32.3 (27.0-33.0) pg MCHC 35.3 (31.0-36.0) g/dl RDW 11.8 (11.0-16.0) % Plt Count 135 L D (160-400) X10*3/uL MPV 9.9 (9.4-12.4) fL Immature Gran % (Auto) 0.4 (0.0-0.4) % Neut % (Auto) 77.1 H (45-73) % Lymph % (Auto) 12.9 L (20-40) % [place] % (Auto) 7.3 (2-11) % Eos % (Auto) 2.0 (0-4) % Baso % (Auto) 0.3 (0-2) % Lymph # (Auto) 1.3 (1.2-4.9) X10*3/uL [place] # (Auto) 0.8 (0.1-1.2) X10*3/uL Eos # (Auto) 0.2 (0.0-0.4) X10*3/uL Baso # (Auto) 0.0 (0.0-0.2) X10*3/uL Abs Immat Gran (auto) 0.04 H (0.00-0.03) X10*3/uL Absolute Neuts (auto) 7.9 (2.0-8.3) x10*3/uL Absolute Nucleated RBC 0.000 (0.0-0.012) X10*3/uL Nucleated RBC % (auto) 0.0 (0.0-0.2) /100WBC Sodium 141 (135-145) mmol/L Potassium 3.8 (3.3-5.1) mmol/L Chloride 107 (96-108) mmol/L Carbon Dioxide 28 (22-29) mmol/L Anion Gap 10 L (12-20) BUN 16 (9-16) mg/dL Creatinine 0.74 (0.5-1.4) mg/dL Estim Creat Clear Calc 141.9 Estimated GFR > 60 Random Glucose 103 (60-115) mg/dL Calcium 8.8 D (8.4-10.2) mg/dL Total Bilirubin 0.3 (0.0-1.0) mg/dL AST 14 (5-37) U/L ALT 10 (0-40) U/L Alkaline Phosphatase 90 (39-117) U/L Total Protein 6.6 (6.5-8.0) g/dL Albumin 3.7 (3.5-5.0) g/dL Lipase 24 (8-78) U/L Urine Color Yellow Urine Appearance Clear Urine pH 7.0 (5.0-9.0) Ur Specific [place] >= 1.030 H (1.005-1.025) Urine Protein Negative (Neg-Trace) mg/dL Urine Glucose (UA) Negative (Negative) mg/dL Urine Ketones Negative (Negative) mg/dL Urine Blood Negative (Negative) Urine Nitrite Negative (Negative) Ur Leukocyte Esterase Negative (Negative) Ethyl Alcohol < 10 mg/dL Influenza Type A (PCR) NEGATIVE (Negative) Influenza Type B (PCR) NEGATIVE (Negative) RSV RNA Qual (PCR) NEGATIVE (Negative) SARS-CoV-2 RNA (RT-PCR) NEGATIVE (Negative) Discharge Plan Discharge Clinical Impression: Nausea & vomiting, Multiple pulmonary nodules, Acute upper abdominal pain Patient Disposition: Home, Self-Care Instructions: Gastritis (ED) Additional Instructions: I think that your pain may be the result of a condition known as gastritis. This is a problem usually related to stomach acid production. I have sent a prescription called omeprazole to your pharmacy. This medication helps reduce stomach acid. It would also be good for you to get some kind of an [id number] antacid which you may use on an as-needed basis if you have another episode like this. Please found on following up with your local oncologist as well as keeping your appointment at [facility]. Also continue your efforts to get a local primary care doctor. Return to the emergency room if worse. Prescriptions: New omeprazole 40 mg capsule,delayed release(DR/EC) 40 mg PO DAILY Qty: 30 0RF No Action warfarin 2.5 mg Tablet 5 mg PO DAILY Qty: 60 1RF Protocol: Dose Management Condition: Tuesday (Week One) Dose/Route: 5 mg Instruction: 2 x 2.5 mg tablets Condition: Tuesday Dose/Route: 5 mg Instruction: 2 x 2.5 mg tablets Condition: Tuesday Dose/Route: 7.5 mg Instruction: 3 x 2.5 mg tablets Condition: Tuesday Dose/Route: 5 mg Instruction: 2 x 2.5 mg tablets Condition: Dose/Route: 5 mg Instruction: 2 x 2.5 mg tablets Condition: Tuesday Dose/Route: 5 mg Instruction: 2 x 2.5 mg tablets Condition: Tuesday Dose/Route: 5 mg Instruction: 2 x 2.5 mg tablets Condition: Tuesday (Week Two) Dose/Route: 5 mg Instruction: 2 x 2.5 mg tablets Condition: Tuesday Dose/Route: 5 mg Instruction: 2 x 2.5 mg tablets Condition: Tuesday Dose/Route: 5 mg Instruction: 2 x 2.5 mg tablets Condition: Tuesday Dose/Route: 5 mg Instruction: 2 x 2.5 mg tablets Condition: Dose/Route: 5 mg Instruction: 2 x 2.5 mg tablets Condition: Tuesday Dose/Route: 5 mg Instruction: 2 x 2.5 mg tablets Condition: Tuesday Dose/Route: 5 mg Instruction: 2 x 2.5 mg tablets Protocol Text: Adjustment Start Date: Tuesday07/06/22 INR Value: 1.9 INR Date: 07/06/22 Recheck Date: 07/12/22 Additional Instructions: INCREASE DOSE TODAY, NO GREENS TODAY OR TOMORROW, EAT ORANGE OR REDS TODAY ondansetron 8 mg Tablet,Disintegrating 8 mg PO Q8H PRN (Reason: Nausea) Qty: 30 3RF acyclovir 400 mg Tablet 400 mg PO TID folic acid 1 mg Tablet 1 mg PO DAILY cholecalciferol (vitamin D3) 50 mcg (2,000 unit) Tablet 50 mcg PO DAILY azithromycin 500 mg Tablet 500 mg PO DAILY Qty: 7 0RF magnesium oxide 400 mg magnesium tablet 400 mg PO DAILY sulfamethoxazole-trimethoprim 400-80 mg tablet 1 tab PO DAILY multivitamin [Daily-Tong] Tablet 1 tab PO DAILY acetaminophen 500 mg tablet 500 mg PO Q6H PRN (Reason: Pain (Scale Score 4-6)) ondansetron 8 mg tablet,disintegrating 8 mg PO Q8H oxycodone 5 mg tablet 5 mg PO Q6H PRN (Reason: Pain (Scale Score 4-6)) chlorhexidine gluconate 0.12 % mouthwash 15 ml buccal DAILY multivitamin with folic acid [Daily-Tong (with folic acid)] 400 mcg tablet 1 tab PO DAILY Referrals: Alexandria Wallis MD [Physician] - (Abdominal pain, lung nodules) Stand Alone Forms: Work/School Release Interventions: ED Discharge Assessment Last Done: 06/03/23 12:31 Discharge Date/Time: 06/03/23 12:32
[2023-06-03 12:19] VITALS: BP 102/66; PULSE 56; RESP 17; TEMP 36.7; O2SAT 100
== END 2023-06-03 12:32 | disposition home or self-care (01) ==
PROVIDERS: Emergency Medicine; Emergency Provider Emergency Medicine
DX: R10.11 Right upper quadrant pain (principal); R11.2 Nausea with vomiting, unspecified; R91.8 Other nonspecific abnormal finding of lung field; Z11.52 Encounter for screening for COVID-19; Z20.828 Contact with and (suspected) exposure to other viral communicable diseases; C81.90 Hodgkin lymphoma, unspecified, unspecified site; R59.0 Localized enlarged lymph nodes; Z79.01 Long term (current) use of anticoagulants; Z79.899 Other long term (current) drug therapy
CPT/HCPCS: 0241U; 36415; 71260; 74177; 76705; 80053; 80307; 81003; 83690; 85025; 93005; 96360; 96361; 99284; 99285; Q9967

== ENCOUNTER → 2023-06-03 04:50 | Outpatient (BNV) | payer MEDICAID, SELFPAY | PROVIDERS: Emergency Provider Emergency Medicine; Visit Provider Internal Medicine Cardiovascular Disease | DX: R00.1 Bradycardia, unspecified (principal) | CPT/HCPCS: 93010 ==

== ENCOUNTER 2023-07-21 10:21 | Outpatient (AMB) | payer MEDICAID, SELFPAY ==
[2023-07-21 10:25] VITALS: BP 110/72; PULSE 71; O2SAT 99; BMI 25.7
--- NOTE | 2023-07-21 10:25 | A.OFFVIS_ITS ---
Vital Signs 07/21/23 10:25 Height 5 ft 9 in Weight 174 lb 2.643 oz BMI 25.7 BP 110/72 Blood Pressure Location Rt brachial Position Sitting Pulse 71 Pulse Oximetry (%) 99 Oxygen Delivery Method Room Air Intake Visit Reasons: ER follow up r/s from 07/04 Intake Note: Ridge presents in office as a new patient for ER follow up.. CC: Patient seen in the ER on 06/03 with c/o acute abd pain and nausea. Patient reports doing better now and not having pain for 3 weeks. He was advised by oncologist to keep today's appt with GI. Magnetic Locater Required: No Accompanied by: Self / Same As Patient Allergies levofloxacin [From Levaquin] Allergy (Verified 07/21/23 10:34) Rash HPI HPI ER follow up r/s from 07/04: Details: 32-year-old male with past medical history of Hodgkin's lymphoma is here today for initial consultation. Patient was seen in the ER twice in the past few months for upper abdominal pain. CT negative except for mild thickening of the gallbladder. Patient reports that since discharge he has been doing well. D enies any abdominal pain or discomfort. Patient reports that he is eating well, avoiding dietary triggers. Eating food that is low in fat. Eating more protein. Patient did not want to come to this appointment as he is already feeling much better, however his oncologist told him that he should keep this appointment. Patient had been seen by oncologist here at [facility] as well as oncologist at [facility]. [facility] Medical History Hodgkin lymphoma Hx of fracture of clavicle Surgical History History of bronchoscopy S/P lymph node biopsy History of undescended testicle Family History Father Heart disease HTN (hypertension) Paternal Aunt Heart disease HTN (hypertension) Maternal Grandfather Diabetes Pancreatic cancer Paternal Uncle Diabetes Family/Other Asthma Social History Household Members: Significant Other and Children Housing: House Housing Other:: owns house with significant Alcohol intake: never Patient Tobacco Use Status: Former Tobacco user Tobacco use type: Smokeless Tobacco Substance Use Type: Marijuana Advance Directives Date on File: 06/08/21 service: No Current occupational status: unemployed 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 Current occupational exposures/hazards: No Review of Systems Const Denies weight gain and Denies weight loss ENT Reports no additional complaints, Denies dysphagia and Denies odynophagia Card Reports no additional complaints Resp Reports no additional complaints GI Denies abdominal pain, Denies belching, Denies melena, Denies bloating, Denies change in bowel habits, Denies dysphagia, Denies excessive flatus, Denies dyspepsia, Denies heartburn, Denies diarrhea, Denies loose stools, Denies nausea, Denies odynophagia and Denies vomiting Reports no additional complaints Musc Reports no additional complaints Neuro Reports no additional complaints Psych Reports no additional complaints Endo Reports no additional complaints Physical Exam Vital Signs: Last Vital Signs Pulse 71 07/21/23 10:25 BP 110/72 07/21/23 10:25 Pulse Ox 99 07/21/23 10:25 Oxygen Delivery Method Room Air 07/21/23 10:25 BMI result Body Mass Index 25.7 Const General: healthy appearing, no acute distress and well developed Nutritional Appearance: well nourished Orientation/consciousness: patient oriented x3 Resp Effort & Inspection: normal respiratory effort, able to speak in complete sentences, no tracheal deviation and symmetric chest movement Auscultation: clear to auscultation bilaterally Cardio Rate: regular rate GI Inspection: Yes normal to inspection and No distended Palpation (GI): Soft to palpation, not firm, nontender and No hepatosplenomegaly present Auscultation: normal bowel sounds General: Yes no CVA tenderness Back/Spine/Pelvis Back: no CVA tenderness Skin General skin exam: elasticity normal, turgor normal and dry skin Neuro General: patient oriented x3 Psych Appearance: grossly normal Mental Status: mental status grossly normal Results Reviewed Results Reviewed: CT SCAN OF ABDOMEN AND PELVIS 06/03/2023 IMPRESSION: 1. There appears to be gallbladder wall thickening. This is nonspecific. 2. Multiple pulmonary nodules at the lung bases measuring up to 1.5 cm at the left lung base. 3. Small retroperitoneal lymph nodes measuring up to 1.2 cm. 4. No other significant abnormality seen. ABDOMINAL ULTRASOUND 06/03/2023 FINDINGS: PANCREAS: Tail obscured. LIVER: The liver is normal in size. The liver contour is normal. There is diffuse increased liver parenchymal echogenicity, consistent with hepatic steatosis. No focal hepatic lesion. There is no intrahepatic biliary duct dilatation seen. GALLBLADDER: The gallbladder is physiologically distended with mild gallbladder wall edema. Negative sonographic Mcgill's sign. COMMON BILE DUCT: Normal in caliber measuring 0.2 cm in diameter. RIGHT KIDNEY: No hydronephrosis. No renal calculi or focal parenchymal lesions. The kidney measures 12.6 cm in maximum dimension. FREE FLUID: None. Assessment & Plan Assessment & Plan (1) RUQ abdominal pain: Code(s): R10.11 - Right upper quadrant pain (2) Epigastric abdominal pain: Code(s): R10.13 - Epigastric pain Plan Patient will follow-up on as needed basis. Currently he is not experiencing any symptoms. There is a possibility that he might of had biliary colic., however patient was encouraged to avoid food high in fat. Eat more protein, low carb diet. Patient can take Pepcid on as needed basis. If he will have another episode he can call our office and we can send him for HIDA scan. He is agreeable to this plan and verbalizes understanding of instructions. He was given the opportunity to ask questions and all questions answered. Thank you for allowing me to participate in his care Medications: New famotidine (Pepcid) 20 mg PO DAILY PRN 30 tabs 3RF acid reflux K29.70 - Gastritis, unspecified, without bleeding
== END 2023-07-21 11:41 | disposition home or self-care (01) ==
PROVIDERS: Visit Provider Nurse Practitioner Family
DX: R10.11 Right upper quadrant pain (principal); R10.13 Epigastric pain
CPT/HCPCS: 99204

== ENCOUNTER → 2023-07-21 10:21 | Outpatient (BNVA) | payer MEDICAID, SELFPAY | PROVIDERS: Visit Provider Nurse Practitioner Family | DX: R10.11 Right upper quadrant pain (principal); R10.13 Epigastric pain | CPT/HCPCS: 99212 ==

== ENCOUNTER 2023-12-28 16:30 | Emergency (ER) | payer MEDICAID, SELFPAY ==
--- NOTE | ~2023-12-28 | US_ITS ---
EXAMINATION: US TRIPLEX UPPER EXTREMITY, RIGHT CLINICAL INFORMATION: Rule out DVT, subclavian/jugular port area COMPARISON: None available. TECHNIQUE: Color-flow triplex imaging with spectral analysis and compression Doppler was performed on the right upper extremity. FINDINGS: There is heterogeneous, expansile, noncompressible thrombus within the right internal. The right subclavian, and axillary veins are patent and free of thrombus. The imaged segment of the right brachiocephalic vein is patent. Spectral doppler waveforms are normal. The brachial, basilic, cephalic, radial, and ulnar veins are patent and compressible. US/US venous duplex UE RT IMPRESSION: Noncompressible thrombus within the right internal jugular vein. The remaining veins of the right upper extremity are patent. Findings were communicated with Dr. Quiroz by Dr. Nugent by telephone at 1740 hours. Electronically signed by: Giuseppe Nugent MD 12/28/2023 07:40 PM EDT
--- NOTE | ~2023-12-28 | XR_ITS ---
EXAMINATION: XR CHEST CLINICAL INFORMATION: Chest pain status post bone marrow transplant COMPARISON: Chest radiograph 04/02/2022 TECHNIQUE: Frontal view of the chest was obtained. FINDINGS: Since the prior study the left jugular port has been removed and a right sided central venous catheter has its tip in the SVC. Heart size remains normal. No evidence of CHF. Pleural effusions. There is no convincing evidence of consolidation and no change when compared to the prior study. There is some subtle streaky densities in the right lung which are of questionable significance. Given the patient's immunocompromised status, consider chest CT for further evaluation. XR/XR chest 1V IMPRESSION: No acute intrathoracic disease. Some subtle streaky densities in the right lung of questionable significance. Given the patient's immunocompromised status, consider chest CT. Electronically signed by: Minh Streeter MD 12/28/2023 08:36 PM EDT
--- NOTE | 2023-12-28 16:33 | ECG_ITS ---
Test Reason : CHEST PAIN/BONE MARROW TRANSPLANT RECIPIENT Blood Pressure : / mmHG Vent. Rate : 076 BPM Atrial Rate : 076 BPM P-R Int : 166 ms QRS Dur : 082 ms QT Int : 366 ms P-R-T Axes : 050 049 063 degrees QTc Int : 411 ms Normal sinus rhythm Normal ECG When compared with ECG of 03-JUN-2023 05:33, No significant change was found Referred By: Helene Monterroso Electronically Signed By:ADDISON VINCENT
--- NOTE | 2023-12-28 16:48 | ED_ITS ---
HPI - General Adult General Chief complaint: General Medical Stated complaint: pain r side neck,shoulder,chest Time Seen by Provider: 12/28/23 17:58 Source: patient Mode of arrival: ambulatory Limitations: no limitations History of Present Illness ED Provider: Dr. Chitra George HPI narrative: patient comes to the emergency room complaining of right-sided neck pain, shoulder pain and upper arm pain all on the right. Patient has a chemo port on the right side. The patient's knowledge, patient denies any fever or chills. Patient is roughly 3 weeks status post bone marrow transplant which was done on November 30 of this year at [facility]. Patient states that when he woke this morning, he started having a little bit of right-sided neck pain. Patient states that he might have slept wrong. Patient called his sand cutter/ oncologist at [facility], recommended him to come to emergency room for further evaluation. Patient denies chest pain or shortness of breath Related Data Previous Rx's ?Medication ?Instructions ?Recorded famotidine 20 mg tablet (Pepcid) 20 mg PO DAILY PRN acid reflux #30 07/21/23 tabs apixaban 5 mg (74 tabs) tablets in 5 mg PO BID #74 ea 12/28/23 a dose pack (Eliquis DVT-PE Treat 30D Start) Allergies Allergy/AdvReac Type Severity Reaction Status Date / Time levofloxacin [From Levaquin] Allergy Rash Verified 12/28/23 16:53 Review of Systems 2 Review of Systems: Constitutional : No Weight loss, No Fever, No Chills, No Night Sweats, No Fatigue, No Malaise ENT/Mouth : No Hearing loss, No Ear Pain, No Nasal Congestion, No Sinus Pain, No Hoarseness, No sore throat, No Rhinorrhea, No Swallowing Difficulty Eyes: No Eye Pain, No Swelling, No Redness, No Foreign Body, No Discharge, No Vision Changes Cardiovascular : No Chest Pain, No SOB, No Dyspnea on Exertion, No Orthopnea, No Edema, No Palpitations Respiratory : No Cough, No Sputum, No Wheezing, No Smoke Exposure, No Dyspnea Gastrointestinal : No Nausea, No Vomiting, No Diarrhea, No Constipation, No abdominal Pain, No Hematochezia, No Melena Genitourinary : no irregular bleeding, No Dysuria, No Urinary Frequency, No Hematuria, No Urinary Incontinence, No Urgency, No Flank Pain, No Urinary Flow Changes, No Hesitancy Musculoskeletal : complaining of right-sided neck pain radiating towards the right shoulder and right upper arm, No joint pain, No Myalgias, No Joint Swelling Skin : No Skin Lesions, No rash Neuro : No Weakness, No Numbness, No Paresthesias, No Loss of Consciousness, No Dizziness, No Headache Psych : No Anxiety/Panic, No Depression, No SI/HI/AH/VH, No Social Issues, Heme/Lymph: No Bruising, No Bleeding,No Lymphadenopathy Endocrine : No Polyuria, No Polydipsia, No Temperature Intolerance [facility] Past Medical History Medical History Hodgkin lymphoma Hx of fracture of clavicle Surgical History History of bronchoscopy S/P lymph node biopsy History of undescended testicle Family History Family History Father Heart disease HTN (hypertension) Paternal Aunt Heart disease HTN (hypertension) Maternal Grandfather Diabetes Pancreatic cancer Paternal Uncle Diabetes Family/Other Asthma Social History Social History Household Members: Significant Other and Children Housing: House Housing Other:: owns house with significant Alcohol intake: never Patient Tobacco Use Status: Former Tobacco user Tobacco use type: Smokeless Tobacco Substance Use Type: Marijuana Advance Directives: Yes Advance Directives on File: Yes Advance Directives Date on File: 06/08/21 service: No Current occupational status: unemployed 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 Oriented X3. No acute distress. Eyes: Pupils equal, round and reactive to light. ENT: Pharynx normal. Neck: Normal inspection. Neck supple. No lymph nodes noted. No crepitus CVS: Normal heart rate and rhythm. Pulses normal. Normal S1 and S2. Reproducible pain to palpation on the right side of the neck, no obvious swelling Respiratory: No respiratory distress. Breath sounds normal. No Wheezing. No rales Abdomen: Soft and nontender. No rigidity. No distention. Skin: Skin warm and dry. Normal skin color. Normal skin turgor. Extremities: No lower extremity edema. No Lacerations. No Rash Neuro: Oriented X 3. No motor deficit. No sensory deficit. Moving all extremities. No slurred speech. CN 2 through 12 grossly intact Psych: calm, cooperative, normal affect Course Course Course Narrative: This is a rapid medical exam performed by Pepper Monterroso NP: Additional HPI, ROS, PE not included below will be deferred to primary provider. Patient is a 33-year-old male with Hodgkin lymphoma, discharged from [facility] 2 weeks ago, bone marrow transplant 27 days ago presenting with complaint of right sided neck pain radiating to his chest as well as dyspnea. Was at the clinic in [place] yesterday for weekly follow up with transplant MD, had labs done and told everything was fine. Unsure if he has had a fever today. Currently has a PICC line. States when he swallows food or fluids the pain increases. Plan: labs Medications Administered Discontinued Medications Generic Name Dose Route Start Last Admin Trade Name Fabiola PRN Reason Stop Dose Admin Diazepam 1 mg 12/28/23 18:30 12/28/23 19:36 Diazepam 2 Mg Tablet PO 12/28/23 18:31 1 mg ONCE ONE Administration Medical Decision Making Medical Decision Making [facility] Narrative: my interpretation of labs: White blood cell count 2.1, hemoglobin 8.6, hematocrit 24.3, platelets 112, ANC 1390 ( mild neutropenia), filgrastim not indicated at this time. PT INR within normal limits, normal chemistry, negative troponin, negative BNP - my interpretation of EKG: Normal sinus rhythm, heart rate 76, nonspecific ST segment elevation 1 mm in leads II, III and AVF, old finding, previously seen in EKG of 05/31/2023, no T-wave inversions, QTC 411 - patient was given a dose of diazepam p.o. for musculoskeletal pain. - my interpretation of chest x-ray: No obvious abnormality ; ultrasound report: Right internal jugular vein thrombus, remaining of right upper extremity patent - I discussed the patient with Dr. Dalton from vascular surgery. Recommendations: Eliquis p.o., the port stays in place. Follow-up with patient's specialists - patient was given the 1st dose of 10 mg Eliquis in the emergency room. Patient provided with an Eliquis starters packet pamphlet and good Rx card - I thoroughly discussed with the patient that if he has any stroke-like symptoms or shortness of breath, chest pains any new symptoms, he needs to return immediately to the ED. Differential Diagnosis Differential Diagnoses: The differential diagnosis associated with the presentation includes ( Musculoskeletal pain, internal jugular thrombus) Admission/Observation Consideration of admission/observation: Escalation of care including admission/observation considered ( given patient's symptoms and radiological findings, observation was considered) Consult Healthcare Provider Management of the patient was discussed with: [place] Liaison Adviser Lab Data MDM Lab Attestation statement: I reviewed the patient's lab results. 12/28/23 17:23 12/28/23 17:23 Labs: Lab Results 12/28/23 12/28/23 12/28/23 Range/Units 17:23 17:26 18:27 WBC 2.1 L (4.8-10.8) X10*3/uL RBC 2.62 L D (4.60-5.80) X10*6/uL Hgb 8.6 L D (14.0-18.0) g/dl Hct 24.3 L D (42.0-52.0) % MCV 92.7 (80.0-98.0) fL MCH 32.8 (27.0-33.0) pg MCHC 35.4 (31.0-36.0) g/dl RDW 15.4 (11.0-16.0) % Plt Count 112 L (160-400) X10*3/uL MPV 11.1 (9.4-12.4) fL Immature Gran % (Auto) 0.5 H (0.0-0.4) % Neut % (Auto) 66.2 (45-73) % Lymph % (Auto) 9.5 L (20-40) % [place] % (Auto) 21.0 H (2-11) % Eos % (Auto) 1.4 (0-4) % Baso % (Auto) 1.4 (0-2) % Lymph # (Auto) 0.2 L (1.2-4.9) X10*3/uL [place] # (Auto) 0.4 (0.1-1.2) X10*3/uL Eos # (Auto) 0.0 (0.0-0.4) X10*3/uL Baso # (Auto) 0.0 (0.0-0.2) X10*3/uL Abs Immat Gran (auto) 0.01 (0.00-0.03) X10*3/uL Absolute Neuts (auto) 1.4 L (2.0-8.3) x10*3/uL Absolute Nucleated RBC 0.000 (0.0-0.012) X10*3/uL Nucleated RBC % (auto) 0.0 (0.0-0.2) /100WBC Smear Tech's Comments VERIFIED PT 11.6 (11.1-13.3) SEC INR 1.0 (0.9-1.1) Sodium 139 (135-145) mmol/L Potassium 4.0 (3.3-5.1) mmol/L Chloride 107 (96-108) mmol/L Carbon Dioxide 27 (22-29) mmol/L Anion Gap 9 L (12-20) BUN 15 (9-16) mg/dL Creatinine 0.79 (0.5-1.4) mg/dL Estim Creat Clear Calc 131.7 Estimated GFR > 60 Random Glucose 101 (60-115) mg/dL Calcium 8.8 (8.4-10.2) mg/dL Total Bilirubin 0.3 (0.0-1.0) mg/dL Direct Bilirubin 0.2 (0.0-0.5) mg/dL AST 22 (5-37) U/L ALT 32 (0-40) U/L Alkaline Phosphatase 63 (39-117) U/L Troponin I High Sens < 2.7 (<3.5-35.0) ng/L B-Natriuretic Peptide 14 (<100) pg/mL Total Protein 6.8 (6.5-8.0) g/dL Albumin 3.7 (3.5-5.0) g/dL COVID-19 (THOMPSON) Negative (Negative) COVID-19 Clin Com See Note Influenza Type A (JAISON) Negative (Negative) Influenza Type B (JAISON) Negative (Negative) Influenza A & B Note See Note Radiology Impression Discussion of test interpretation with radiology: I have reviewed the radiologist's reading. Radiologist Impression: FINDINGS: There is heterogeneous, expansile, noncompressible thrombus within the right internal. The right subclavian, and axillary veins are patent and free of thrombus. The imaged segment of the right brachiocephalic vein is patent. Spectral doppler waveforms are normal. The brachial, basilic, cephalic, radial, and ulnar veins are patent and compressible. US/US venous duplex UE RT IMPRESSION: Noncompressible thrombus within the right internal jugular vein. The remaining veins of the right upper extremity are patent. Findings were communicated with Dr. Quiroz by Dr. Nugent by telephone at 1740 hours. Critical Care Time Critical Care Time Critical Care Time: Yes Total Critical Care Time: 60 Attestation: I have personally provided critical care time. Time includes review of lab data, radiology results, discussion with consultants, and monitoring for potential decompensation. Intervention performed as documented. Discharge Plan Discharge Clinical Impression: Acute internal jugular vein thrombosis Patient Disposition: Home, Self-Care Instructions: Apixaban (By mouth), Deep Vein Thrombosis (ED) Additional Instructions: Please follow-up with your primary care physician tomorrow. If you have any worsening or new symptoms, please return to the emergency room or call 911 Prescriptions: New Evin DVT-PE Treat 30D Start 5 mg (74 tabs) tablets,dose pack 5 mg PO BID Qty: 74 0RF Rx Instructions: take 2 tablets (10 mg) PO BID for 7 days, then 1 tablet (5mg) PO BID No Action famotidine [Pepcid] 20 mg tablet 20 mg PO DAILY PRN (Reason: acid reflux) Qty: 30 3RF Print Language: Guinean
[2023-12-28 16:50] VITALS: BP 101/65; PULSE 77; RESP 16; TEMP 36.1; O2SAT 98; BMI 25.5
[2023-12-28 17:40] LABS: Prothrombin Time 11.6 SEC (11.1-13.3)
[2023-12-28 17:44] LABS: Basophils Percent Auto 1.4 % (0-2); Eosinophils Percent Auto 1.4 % (0-4); Hematocrit 24.3 % (42.0-52.0); Hemoglobin 8.6 g/dl (14.0-18.0); Imm Gran Abs Auto 0.01 X10*3/uL (0.00-0.03); Imm Gran Pct Auto 0.5 % (0.0-0.4); Lymphocytes Absolute Auto 0.2 X10*3/uL (1.2-4.9); Lymphocytes Percent Auto 9.5 % (20-40); MANUAL DIFF FLAG SCAN; Mean Corpuscular HGB Conc 35.4 g/dl (31.0-36.0); Mean Corpuscular Hemoglobin 32.8 pg (27.0-33.0); Mean Corpuscular Volume 92.7 fL (80.0-98.0); Mean Platelet Volume 11.1 fL (9.4-12.4); Monocytes Absolute Auto 0.4 X10*3/uL (0.1-1.2); Neutrophils Absolute Auto 1.4 x10*3/uL (2.0-8.3); Neutrophils Percent Auto 66.2 % (45-73); Platelet Count 112 X10*3/uL (160-400); Red Blood Count 2.62 X10*6/uL (4.60-5.80); Red Cell Distribution Width 15.4 % (11.0-16.0); SCAN SMEAR FLAG 1
[2023-12-28 17:51] LABS: IDNOW Serial# 58CA691E; Influenza A Negative (Negative); Influenza B2 Negative (Negative)
[2023-12-28 17:51] LABS: Alanine Aminotransferase 32 U/L (0-40); Albumin Level 3.7 g/dL (3.5-5.0); Alkaline Phosphatase 63 U/L (39-117); Anion Gap 9 (12-20); Aspartate Amino Transferase 22 U/L (5-37); Bilirubin Direct 0.2 mg/dL (0.0-0.5); Bilirubin Total 0.3 mg/dL (0.0-1.0); Blood Urea Nitrogen 15 mg/dL (9-16); Calcium 8.8 mg/dL (8.4-10.2); Carbon Dioxide 27 mmol/L (22-29); Chloride 107 mmol/L (96-108); Creatinine Clr Calc Pharmacy 131.7; Estimated Glomerular Filt Rate > 60; Glucose Random 101 mg/dL (60-115); Sodium 139 mmol/L (135-145); Total Protein 6.8 g/dL (6.5-8.0)
[2023-12-28 17:53] LABS: White Blood Count 2.1 X10*3/uL (4.8-10.8)
[2023-12-28 17:54] LABS: B Type Natriuretic Peptide 14 pg/mL (<100)
[2023-12-28 17:58] LABS: Troponin-I High Sensitivity < 2.7 ng/L (<3.5-35.0)
[2023-12-28 18:23] VITALS: BP 103/64; PULSE 71; RESP 14; O2SAT 100
[2023-12-28 18:35] LABS: SLIDE REVIEW VERIFIED
[2023-12-28 18:45] LABS: COVID-19 Test Negative (Negative); IDNOW Serial# 08D9AD1C
[2023-12-28] MEDS: diazePAM 2 MG TABLET 1 MG PO (19:36)
[2023-12-28] MEDS: Apixaban 5 MG TABLET 10 MG PO (20:44)
[2023-12-28 20:50] VITALS: BP 103/64; PULSE 71; RESP 14; TEMP 37; O2SAT 100
== END 2023-12-28 20:50 | disposition home or self-care (01) ==
PROVIDERS: Emergency Provider Emergency Medicine; PCP Internal Medicine
DX: I82.C11 Acute embolism and thrombosis of right internal jugular vein (principal); M54.2 Cervicalgia; R60.0 Localized edema; M25.511 Pain in right shoulder; R07.89 Other chest pain; R06.02 Shortness of breath; Z87.891 Personal history of nicotine dependence; Z11.52 Encounter for screening for COVID-19; Z79.899 Other long term (current) drug therapy
CPT/HCPCS: 71045; 80053; 80076; 82248; 83880; 84484; 85025; 85610; 87502; 87635; 93005; 93971; 99284

== ENCOUNTER 2024-01-03 11:20 | Emergency (ER) | payer MEDICAID, SELFPAY ==
--- NOTE | ~2024-01-03 | US_ITS ---
EXAMINATION: US ABDOMEN LIMITED CLINICAL INFORMATION: Right upper quadrant pain. COMPARISON: 06/03/[address] TECHNIQUE: Real-time imaging of the right upper quadrant abdominal viscera. FINDINGS: PANCREAS: Pancreatic body and head are unremarkable, tail is obscured by bowel gas. Visualization of pancreatic duct measuring 1 mm. LIVER: Normal. The liver is normal in size. The liver contour is normal. Parenchymal echogenicity is normal. No focal hepatic lesion. There is no intrahepatic biliary duct dilatation seen. GALLBLADDER: 13 mm nonmobile shadowing echogenicity identified within the gallbladder neck. Gallbladder is moderately distended. Gallbladder wall measures 3 mm. Tenderness was elicited during study. COMMON BILE DUCT: Common bile duct measures 0.6 cm in diameter. RIGHT KIDNEY: Normal. No hydronephrosis. No renal calculi or focal parenchymal lesions. The kidney measures 12 cm in maximum dimension. FREE FLUID: None. US/US abdomen limited IMPRESSION: Impacted 13 mm gallbladder neck stone with gallbladder distention and tenderness. Consider HIDA scan. Electronically signed by: Cathy Tang MD 01/03/2024 02:03 PM EDT
[2024-01-03 11:27] VITALS: BP 119/80; PULSE 83; RESP 18; TEMP 36.5; O2SAT 100; BMI 25.5
--- NOTE | 2024-01-03 11:48 | MHC.EDTECH ---
pt requesting port to be used for lab draws. clinical project coordinator aware.
--- NOTE | 2024-01-03 12:10 | ED.ABDPAIN ---
HPI - Abdominal Pain General Chief Complaint: Abdominal Pain Stated Complaint: Upper R abd pain Time Seen by Provider: 01/03/24 12:36 Source: patient Mode of arrival: ambulatory Limitations: no limitations History of Present Illness HPI narrative: Patient is a 33-year-old male with past medical history of Hodgkin's lymphoma, S/P stem cell transplant 12/01/2023 at [facility] in [place], recent right internal jugular vein thrombus diagnosed 12/28/2023 started on Eliquis sent here by his oncologist for evaluation of right upper quadrant pain. He reports that he awoke this morning with a slight discomfort, he ate a bagel and drank a cup of coffee approximately 15-20 minutes later he developed severe worsening of his right upper quadrant pain. It has been constant throughout the day with varying intensity. At this time it is 3/10. Reports associated nausea but no vomiting. He denies any fevers or chills, constipation or diarrhea, symptoms. Denies associated chest pain or shortness of breath. Related Data Previous Rx's ?Medication ?Instructions ?Recorded famotidine 20 mg tablet (Pepcid) 20 mg PO DAILY PRN acid reflux #30 07/21/23 tabs apixaban 5 mg (74 tabs) tablets in 5 mg PO BID #74 ea 12/28/23 a dose pack (Eliquis DVT-PE Treat 30D Start) ondansetron 4 mg disintegrating 4 mg PO Q8H PRN nausea and 01/04/24 tablet vomiting #10 tabs oxycodone 5 mg tablet 5 mg PO Q6H PRN pain #14 tabs 01/04/24 Allergies Allergy/AdvReac Type Severity Reaction Status Date / Time levofloxacin [From Levaquin] Allergy Rash Verified 01/03/24 11:30 Review of Systems Review of Systems Yes all other systems are reviewed and are negative [facility] Past Medical History Attestation statement: The following information was validated with the patient. Source: old records reviewed Medical History Hodgkin lymphoma Hx of fracture of clavicle Surgical History History of bronchoscopy S/P lymph node biopsy History of undescended testicle Family History Family History Father Heart disease HTN (hypertension) Paternal Aunt Heart disease HTN (hypertension) Maternal Grandfather Diabetes Pancreatic cancer Paternal Uncle Diabetes Family/Other Asthma Social History Social History Household Members: Significant Other and Children Housing: House Housing Other:: owns house with significant Alcohol intake: never Patient Tobacco Use Status: Former Tobacco user Tobacco use type: Smokeless Tobacco Smoked in Last 30 Days: No Use of substances other than those prescribed or required for medical reasons: No Substance Use Type: Marijuana Advance Directives: No Advance Directives Information Provided: Yes Advance Directives Date on File: 06/08/21 service: No Current occupational status: unemployed 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 Current occupational exposures/hazards: No Physical Exam ED Vital Signs: Vital Signs - 24 hr 01/03/24 11:27 01/03/24 19:35 01/03/24 21:20 Temperature 97.7 F 97.2 F 98.2 F Pulse Rate 83 73 70 Respiratory Rate 18 16 16 Blood Pressure 119/80 104/73 109/67 Pulse Oximetry 100 100 95 Oxygen Delivery Method Room Air Room Air Room Air 01/04/24 00:30 01/04/24 00:47 01/04/24 00:52 Temperature 98.3 F 98.3 F Pulse Rate 70 78 78 Respiratory Rate 18 18 18 Blood Pressure 97/64 106/61 106/61 Pulse Oximetry 91 L 100 100 Oxygen Delivery Method Room Air Room Air Room Air BMI result Body Mass Index 25.5 Appearance: Alert.?Oriented to person, place and time. No acute distress.?Normal affect. Eyes: Pupils equal, round and reactive to light.? ENT: Pharynx normal.?? Neck: Normal inspection.? Neck supple.?? CVS: Heart sounds normal. Normal heart rate and rhythm.? Pulses normal.?? Respiratory: No respiratory distress.? Lung sounds clear to auscultation bilaterally?? Abdomen: Soft with right upper quadrant tenderness upon palpation, positive Mcgill sign. Positive guarding, no rigidity. No CVA tenderness. Normoactive bowel sounds. Skin: Skin warm and dry.? Normal skin color.? Extremities: No lower extremity edema.? No calf ttp? Neuro: Moves all extremities spontaneously. Sensation intact bilaterally. Ambulates with normal steady gait. Course Course Course Narrative: This is a rapid medical exam performed by Sunshine Rankin PA-C. The patient is a 33-year-old male presenting with right upper abdominal pain x1 day. Is status post stem cell transplant on November 30 secondary to Hodgkin's lymphoma, he was sent here by his oncologist. Abdomen is soft without peritoneal signs, however objective pain elicited with palpation with involuntary guarding. Ultrasound of the upper abdomen and labs are ordered. Due to the patient's immunocompromise state, he will be waiting in his car, he has a family member in the waiting room to alert him when it is time to be seen. We are receiving more information from [facility], they are requesting a CT scan of the abdomen and pelvis, and CTA of the chest to rule out PE Reevaluation(s) Reevaluation #1: Abdominal ultrasound revealing an impacted 13 mm stone in the neck of the gallbladder with associated distention, gallbladder wall 3 mm, CBD 0.6 cm. I contacted patient's oncologist at [facility], Dr. Bazan as per patient's request. Reviewed patient's ultrasound findings thus far, currently pending serum labs, history and exam concerning for choledocholithiasis, ascending cholangitis, acute cholecystitis. Dr. Bazan recommends that given his immunocompromise state with recent stem cell transplant, preference would be for medical management rather than emergent cholecystectomy as this would be a very high-risk given complication risk for infection, additionally having recently been started on anticoagulants for VTE. Additionally recommends that if patient will require admission that he be transferred to [facility]' Time: 22:01 Reevaluation #2: LFTs and lipase are within normal limits. Fevers have been noted. I suspect pain secondary to biliary colic in the setting of the gallbladder neck stone. No gallbladder wall thickening to suggest acute cholecystitis. I reviewed this case with my attending Dr. Moore who agrees that the plan of care would be pain management for biliary colic. I considered consulting general surgery, however as aforementioned, given his immunocompromised state, he would be better suited to follow-up with general surgery through [facility]. I did contact his oncologist Dr. Bazan as well to update him, he advises that the patient may contact his office 1st thing tomorrow morning and they will assist with coordinating care outpatient. We reviewed strict return precautions. All questions were answered. Time: 23:58 Reevaluation #3: At the time of discharge Time: 00:40 Medical Decision Making Medical Decision Making [facility] Narrative: 21:19 - assumption of care Patient is a 33-year-old male with past medical history of Hodgkin's lymphoma presenting to emergency department for evaluation right upper quadrant abdominal pain as per HPI with palpable tenderness on palpation and positive Mcgill sign. Ultrasound obtained from the waiting room revealing a 13 mm stone in the neck of the gallbladder, pending serum labs, will have his [facility] accessed. Lab Data [facility] Lab Attestation statement: I reviewed the patient's lab results. 01/03/24 22:53 01/03/24 22:53 Labs: Lab Results 01/03/24 Range/Units 22:53 WBC 1.6 L (4.8-10.8) X10*3/uL RBC 4.05 L D (4.60-5.80) X10*6/uL Hgb 13.6 L D (14.0-18.0) g/dl Hct 37.2 L D (42.0-52.0) % MCV 91.9 (80.0-98.0) fL MCH 33.6 H (27.0-33.0) pg MCHC 36.6 H (31.0-36.0) g/dl RDW 15.5 (11.0-16.0) % Plt Count 116 L (160-400) X10*3/uL MPV 10.4 (9.4-12.4) fL Immature Gran % (Auto) 0.6 H (0.0-0.4) % Neut % (Auto) 56.7 (45-73) % Lymph % (Auto) 13.4 L (20-40) % [facility] % (Auto) 22.0 H (2-11) % Eos % (Auto) 5.5 H (0-4) % Baso % (Auto) 1.8 (0-2) % Lymph # (Auto) 0.2 L (1.2-4.9) X10*3/uL [facility] # (Auto) 0.4 (0.1-1.2) X10*3/uL Eos # (Auto) 0.1 (0.0-0.4) X10*3/uL Baso # (Auto) 0.0 (0.0-0.2) X10*3/uL Abs Immat Gran (auto) 0.01 (0.00-0.03) X10*3/uL Absolute Neuts (auto) 0.9 L (2.0-8.3) x10*3/uL Absolute Nucleated RBC 0.000 (0.0-0.012) X10*3/uL Nucleated RBC % (auto) 0.0 (0.0-0.2) /100WBC Smear Tech's Comments VERIFIED Sodium 137 (135-145) mmol/L Potassium 4.2 (3.3-5.1) mmol/L Chloride 106 (96-108) mmol/L Carbon Dioxide 27 (22-29) mmol/L Anion Gap 8 L (12-20) BUN 11 (9-16) mg/dL Creatinine 0.69 (0.5-1.4) mg/dL Estim Creat Clear Calc 150.8 Estimated GFR > 60 Random Glucose 90 (60-115) mg/dL Lactic Acid 0.9 (0.5-2.0) mmol/L Calcium 9.8 D (8.4-10.2) mg/dL Magnesium 1.6 (1.6-2.6) mg/dL Total Bilirubin 0.4 (0.0-1.0) mg/dL AST 16 (5-37) U/L ALT 17 (0-40) U/L Alkaline Phosphatase 71 (39-117) U/L Total Protein 7.2 (6.5-8.0) g/dL Albumin 3.9 (3.5-5.0) g/dL Lipase 16 (8-78) U/L Radiology Impression Discussion of test interpretation with radiology: I have reviewed the radiologist's reading. Radiologist Impression: US/US abdomen limited IMPRESSION: Impacted 13 mm gallbladder neck stone with gallbladder distention and tenderness. Consider HIDA scan. Medications Administered Discontinued Medications Generic Name Dose Route Start Last Admin Trade Name Freq PRN Reason Stop Dose Admin Acetaminophen 650 mg 01/03/24 14:11 01/03/24 14:32 Acetaminophen 325 Mg Tablet PO 01/03/24 14:12 650 mg ONCE ONE Administration Apixaban 10 mg 01/03/24 22:06 01/03/24 22:29 Apixaban 5 Mg Tablet PO 01/03/24 22:07 10 mg ONCE ONE Administration Piperacillin Sod/Tazobactam 100 mls @ 200 mls/hr 01/03/24 22:26 01/04/24 00:29 Sod 4.5 gm/ Sodium Chloride IV 01/03/24 22:55 Infused ONCE ONE Infusion Critical Care Time Critical Care Time Critical Care Time: Yes Total Critical Care Time: 35 Attestation: I personally attest to this critical care time spent taking care of the patient exclusive of all other billable procedures was approximately 35 minutes including initial evaluation of patient, ordering tests, US interpretation, medical consultation, documentation, re-evaluation. Discharge Plan Discharge Clinical Impression: Biliary colic, Cholelithiasis Patient Disposition: Home, Self-Care Instructions: Biliary Colic (ED), Gallstones (ED) Additional Instructions: As discussed, you may return with any new or worsening symptoms or concerns such as severe worsening pain, nausea and persistent vomiting, fevers, chills. Please contact Dr. Bazan's office first thing tomorrow, he will help to coordinate care with a general surgeon for further evaluation and treatment, possible medical management versus future cholecystectomy. Avoid eating any foods that are high in fat or any fried/greasy foods as this may worsen your symptoms. You can take Tylenol 500 mg, 2 tablets (1,000mg) every 4-6 hours as needed for pain, but not to exceed 3 doses daily (3,000mg). For pain that is unrelieved by Tylenol I have sent a prescription for oxycodone to your pharmacy. This is a narcotic medication. It can be addictive. It may make you drowsy. You should not drive, drink alcohol, or work while taking this medication. ? Prescriptions: New oxycodone 5 mg tablet 5 mg PO Q6H PRN (Reason: pain) Qty: 14 0RF Rx Instructions: Partial Fill upon patient request. ondansetron 4 mg tablet,disintegrating 4 mg PO Q8H PRN (Reason: nausea and vomiting) Qty: 10 0RF No Action Eliquis DVT-PE Treat 30D Start 5 mg (74 tabs) tablets,dose pack 5 mg PO BID Qty: 74 0RF Rx Instructions: take 2 tablets (10 mg) PO BID for 7 days, then 1 tablet (5mg) PO BID famotidine [Pepcid] 20 mg tablet 20 mg PO DAILY PRN (Reason: acid reflux) Qty: 30 3RF Referrals: Ana Luisa Chávez MD [Primary Care Provider] - Interventions: ED Discharge Assessment Last Done: 01/04/24 00:52 Discharge Date/Time: 01/04/24 00:54 Print Language: Colombian
[2024-01-03] MEDS: Acetaminophen 325 MG TABLET 650 MG PO (14:32)
[2024-01-03 19:35] VITALS: BP 104/73; PULSE 73; RESP 16; TEMP 36.2; O2SAT 100
[2024-01-03 21:20] VITALS: BP 109/67; PULSE 70; RESP 16; TEMP 36.8; O2SAT 95
[2024-01-03] MEDS: Apixaban 5 MG TABLET 10 MG PO (22:29)
[2024-01-03 23:02] LABS: Basophils Percent Auto 1.8 % (0-2); Eosinophils Absolute Auto 0.1 X10*3/uL (0.0-0.4); Eosinophils Percent Auto 5.5 % (0-4); Hematocrit 37.2 % (42.0-52.0); Hemoglobin 13.6 g/dl (14.0-18.0); Imm Gran Abs Auto 0.01 X10*3/uL (0.00-0.03); Imm Gran Pct Auto 0.6 % (0.0-0.4); Lymphocytes Absolute Auto 0.2 X10*3/uL (1.2-4.9); Lymphocytes Percent Auto 13.4 % (20-40); MANUAL DIFF FLAG SCAN; Mean Corpuscular HGB Conc 36.6 g/dl (31.0-36.0); Mean Corpuscular Hemoglobin 33.6 pg (27.0-33.0); Mean Corpuscular Volume 91.9 fL (80.0-98.0); Mean Platelet Volume 10.4 fL (9.4-12.4); Monocytes Absolute Auto 0.4 X10*3/uL (0.1-1.2); Neutrophils Absolute Auto 0.9 x10*3/uL (2.0-8.3); Neutrophils Percent Auto 56.7 % (45-73); Platelet Count 116 X10*3/uL (160-400); Red Blood Count 4.05 X10*6/uL (4.60-5.80); Red Cell Distribution Width 15.5 % (11.0-16.0); SCAN SMEAR FLAG 1
[2024-01-03 23:15] LABS: Lactic Acid 0.9 mmol/L (0.5-2.0)
[2024-01-03 23:20] LABS: Alanine Aminotransferase 17 U/L (0-40); Albumin Level 3.9 g/dL (3.5-5.0); Alkaline Phosphatase 71 U/L (39-117); Anion Gap 8 (12-20); Aspartate Amino Transferase 16 U/L (5-37); Bilirubin Total 0.4 mg/dL (0.0-1.0); Blood Urea Nitrogen 11 mg/dL (9-16); Calcium 9.8 mg/dL (8.4-10.2); Carbon Dioxide 27 mmol/L (22-29); Chloride 106 mmol/L (96-108); Creatinine Clr Calc Pharmacy 150.8; Estimated Glomerular Filt Rate > 60; Glucose Random 90 mg/dL (60-115); Lipase 16 U/L (8-78); Magnesium 1.6 mg/dL (1.6-2.6); Potassium 4.2 mmol/L (3.3-5.1); Sodium 137 mmol/L (135-145); Total Protein 7.2 g/dL (6.5-8.0)
[2024-01-03 23:22] LABS: White Blood Count 1.6 X10*3/uL (4.8-10.8)
[2024-01-03 23:23] LABS: SLIDE REVIEW VERIFIED
[2024-01-03] MEDS: Piperacillin Sodium/Tazobactam 4.5 GM in 0.9 % Sodium Chloride 100 ML IV (23:37)
[2024-01-04 00:30] VITALS: BP 97/64; PULSE 70; RESP 18; TEMP 36.8; O2SAT 91
[2024-01-04 00:47] VITALS: BP 106/61; PULSE 78; RESP 18; O2SAT 100
[2024-01-04 00:52] VITALS: BP 106/61; PULSE 78; RESP 18; TEMP 36.8; O2SAT 100
== END 2024-01-04 00:54 | disposition home or self-care (01) ==
PROVIDERS: Nurse Practitioner Family; Physician Assistant Medical; Emergency Provider Emergency Medicine Emergency Medical Services; PCP Internal Medicine
DX: K80.50 Calculus of bile duct without cholangitis or cholecystitis without obstruction (principal); R10.11 Right upper quadrant pain; Z79.01 Long term (current) use of anticoagulants; Z79.899 Other long term (current) drug therapy
CPT/HCPCS: 36415; 76705; 80053; 83605; 83690; 83735; 85025; 87040; 96365; 99284; 99285; J2543